=== PATIENT | female | born 1990 | race Caucasian/White ===

== ENCOUNTER 2022-06-06 14:22 | Inpatient (IN) | payer MEDICAID, SELFPAY ==
[2022-06-06] VITALS (35 sets, daily range): BP systolic 107–142; BP diastolic 53–90; PULSE 65–95; RESP 11–20; TEMP 36.9–37.3; O2SAT 92–96
--- NOTE | 2022-06-06 14:00 | RT.EKG_ITS ---
APPROVED REPORT Exam: Resting ECG Reason for Exam: CHEST PAIN Patient Location: E HR:82 bpm ECG Measurements Heart Rate 82 AXIS MS 164 P 61 QRSd 91 QRS 9 QT 397 T 56 QTc 465 Conclusion Sinus rhythm...normal P axis, V-rate 60- 99
--- NOTE | 2022-06-06 15:07 | W.ED.GENAD ---
Discharge Plan Disposition Patient Disposition: STILL A PATIENT Discharge Details Chief Complaint: GenMedical Primary Care Provider: Unknown,Unknown ED Provider: Ky Perez Home Meds and New Rx's Prescriptions: No Action mirtazapine [Remeron] 15 mg Tablet 15 mg PO HS buprenorphine-naloxone [Suboxone] 8-2 mg Film sublingual hydroxyzine pamoate [Vistaril] 25 mg Capsule 25 mg PO DAILY Medical Decision Making 1515 --31-year-old female with history of liver cirrhosis, alcoholism, here with rigors today, cough over the past 1 week. Consider pneumonia versus COVID. Patient is saturating well and is in no respiratory distress. I suspect her left upper quadrant tenderness is a result of alcoholic gastritis. I will initiate treatment with Pepcid. I did consider spontaneous bacterial peritonitis and exam is not consistent with this. Will send screening labs. I will obtain lactate and blood cultures. I will plan to obtain outside hospital records from [facility] regarding prior hospitalization. HPI General Mode of arrival: EMS. Date/Time Provider Initiated Documentation: 06/06/22 14:41. Limitations to Documentation: no limitations. Information obtained by: patient. HPI Narrative: 31-year-old female with history of alcoholism and cirrhosis of the liver, here with chief complaint of shaking chills. Patient notes full body shaking intermittently today. She notes symptoms of intermittent for the past 3 hours. She has associated intermittent dizziness. Symptoms are moderate to severe with no modifiers. She states symptoms do not feel similar to alcohol withdrawal which she has had in the past. Patient notes she has consumed 3 shots of vodka earlier today and a beer this afternoon and there was no improvement in her symptoms. Patient does note associated cough over the past 1 week. Cough has been productive of dark green sputum. Of note, patient states that she was told she had severe cirrhosis about 6 months ago. She did not seek rehabilitation for her alcoholism and was sober for about 5 months. She unfortunately resumed drinking again 2 weeks ago. Patient has not established care with a ultrasonic solderer. She has no primary care physician. Related Data Home Medications Medication Instructions Recorded Confirmed buprenorphine 8 mg-naloxone 2 mg film sublingual 06/06/22 sublingual film (Suboxone) hydroxyzine pamoate 25 mg capsule 25 mg PO DAILY 06/06/22 06/06/22 (Vistaril) mirtazapine 15 mg tablet (Remeron) 15 mg PO HS 06/06/22 06/06/22 Allergies Allergy/AdvReac Type Severity Reaction Status Date / Time clindamycin AdvReac Intermediate Nausea Unverified 06/06/22 14:27 General Stated Complaint: GenMedical SUHA: 3 Review of Systems All systems reviewed & are unremarkable except as noted in HPI and below Constitutional Constitutional: Reports body ache(s) and Denies fever(s) Gastrointestinal Gastrointestinal: Reports abdominal pain (chronic) PFSH Social History Smoking/Tobacco Use Status: Current every day Smoking risk assessment performed?: Yes Substance use type: does not use Details: on suboxone for opiate addiction Do you feel safe at home: Yes Do you feel safe in your relationship?: Yes Exam Const General: cooperative and no acute distress Orientation: alert and awake Other: Intermittent rigors HENMT Head: normocephalic and atraumatic Eyes Conjunctivae: conjunctivae normal Neck Neck: trachea midline and supple Resp Auscultation: clear to auscultation bilaterally, no rales, no rhonchi and no wheezes Cardio Rate: regular rate and not tachycardic Rhythm: regular rhythm GI Inspection: non-distended Palpation: soft, not firm, no guarding, no masses, not rigid and tender in the LUQ; with no rebound tenderness Auscultation: normal bowel sounds Skin General skin exam: no rashes or lesions noted Neuro General: patient alert, patient awake and tone normal Extrem General: no edema Psych Appearance: grossly normal Mental Status: mental status grossly normal Speech and Movement: speech and movement normal Course Vital Signs Vital signs: Vital Signs Temperature 36.9 C 06/06/22 14:21 Pulse 90 06/06/22 14:21 Respiratory Rate 18 06/06/22 14:21 Blood Pressure 141/84 H 06/06/22 14:21 Pulse Oximetry 96 06/06/22 14:21 Temperature 36.9 C 06/06/22 14:21 Temperature Source Temporal Artery Scan 06/06/22 14:21 Pulse 90 06/06/22 14:21 Respiratory Rate 18 06/06/22 14:21 Respiratory Effort Non-Labored 06/06/22 14:52 Blood Pressure 141/84 H 06/06/22 14:21 Blood Pressure Position Sitting 06/06/22 14:21 Pulse Oximetry 96 06/06/22 14:21 Oxygen Delivery Method Room Air 06/06/22 14:21 Oxygen Flow Rate 0 06/06/22 14:21 Pain Level 5 06/06/22 14:21 PAWSS Have you Been Recently Intoxicated or Drunk Within the Last 30 days?: Yes Have you Ever Experienced Previous Episodes of Alcohol Withdrawal?: Yes Have you ever Experienced Withdrawal Seizures?: Yes Have you ever Experienced Delirium Tremens(DT)s?: Yes Have you ever undergone Alcohol Rehabilitation Treatment (i.e, inpt ot outpatient treatment programs)?: Yes Have you ever Experienced Blackouts?: Yes Have you ever Combined Alcohol with other Downers within the last 90 days?: No Have you ever Combined Alcohol with any other Substance of Abuse during the last 90 days?: No Positive Blood Alcohol level on Presentation? [PCS.BAL]: No Evidence of Increased Autonomic Activity (i.e. HR>120, tremor, sweating, agitation, nausea)?: Yes Result: 7
[2022-06-06 15:37] LABS: Lactate 2.1 mmol/L (0.6-1.4)
[2022-06-06 15:38] LABS: Source Nasal/Nares
[2022-06-06 15:40] LABS: Abs Immature Grans 0.01 10^3/uL (0.0-0.06); Absolute Basophil Count 0.01 10^3/uL (0.0-0.2); Absolute Eosinophil Count 0.06 10^3/uL (0.0-0.7); Absolute Lymphocyte Count 1.31 10^3/uL (1.2-3.4); Absolute Monocyte Count 0.31 10^3/uL (0.1-0.8); Absolute Neutrophil Count 2.21 10^3/uL (1.2-6.7); Basophils % 0.3; Eosinophils % 1.5; HCT 30.3 % (36.0-46.0); HGB 10.6 g/dL (11.2-15.7); Immature Grans % 0.3; Lymphocytes % 33.5; MCH 32.7 pg (27.0-33.0); MCV 94 fL (80-95); MPV 10.1 fL (8.0-11.0); Monocytes % 7.9; Neutrophils % 56.5; RBC 3.24 10^6/uL (3.93-5.22); RDW 16.4 % (11.7-14.6); RDW-SD 55.8 fL; WBC 3.91 10^3/uL (4.4-10.8)
[2022-06-06 15:52] LABS: Diff Comment PLT Morph Reviewed; Platelet Count 32 10^3/uL (130-400); RBC Morphology Normal
[2022-06-06 15:53] LABS: INR 1.2 (0.9-1.1); PTT Activated 36.2 sec (21.0-27.5); Prothrombin Time 12.1 sec (9.3-11.0)
[2022-06-06 16:02] LABS: Bilirubin Small (Negative); Blood Negative (Negative); Clarity Clear (Clear); Glucose 100 mg/dL (Negative); Ketones Negative (Negative); Leukocyte Esterase Negative (Negative); Nitrite Negative (Negative); Urobilinogen >=8.0 EU/dL (Up TO 0.2); pH 7.5 (5-8)
[2022-06-06 16:02] LABS: ALT 44 U/L (14-59); AST 113 U/L (15-37); Albumin 3.9 g/dL (3.4-5.0); Alkaline Phosphatase 89 U/L (46-116); Anion Gap 13.6 mmol/L (3-11); BUN 11 mg/dL (7-18); Bilirubin, Total 2.9 mg/dL (0.2-1.0); CO2 27.4 mmol/L (21.0-32.0); CREATININE 0.5 mg/dL (0.55-1.02); Calcium 8.6 mg/dL (8.5-10.1); Chloride 105 mmol/L (98-107); Glucose 104 mg/dL (74-106); Magnesium 1.2 mg/dL (1.8-2.4); Potassium 3.6 mmol/L (3.5-5.1); Sodium 146 mmol/L (136-145); Total Protein 8.1 g/dL (6.4-8.2); Troponin I < 50 ng/L (<or=60)
--- NOTE | 2022-06-06 16:07 | DI.RAD_ITS ---
Exam(s) XR PORTABLE CHEST AP EXAM: XR PORTABLE CHEST AP CLINICAL HISTORY: productive cough TECHNIQUE: 2D digital imaging was performed. COMPARISON: No exams were available for comparison FINDINGS: LUNGS: Clear. No pleural abnormality seen. HEART: Normal. AORTA: Normal. BONES: Unremarkable for age. Soft tissues: Unremarkable. IMPRESSION: No acute findings. DATA REPOSITORY: RADIATION DOSE DELIVERED:
[2022-06-06 16:10] LABS: Bacteria Few HPF (Negative); C & S Indicated? No/Sq. Contamination; Casts Negative LPF (Negative); Crystals Negative HPF (Negative); Epithelial Cells Many HPF (Negative); Mucus Moderate (Negative); RBC 0-2 HPF (0-2)
[2022-06-06 16:11] LABS: COVID-19 PCR Negative (Negative)
[2022-06-06] MEDS: Famotidine 20 MG/2 ML VIAL IVP (17:02)
[2022-06-06] MEDS: Ondansetron 4 MG/2 ML VIAL IVP (18:19)
[2022-06-06] MEDS: AZITHROMYCIN 500 MG in Normal Saline 250 ML 250 MG IVPB (18:23)
[2022-06-06] MEDS: LORazepam 20 MG/10 ML VIAL IVP (19:05)
--- NOTE | 2022-06-06 21:22 | HPE_ITS ---
Date of service: 06/06/22 Time of Service: : Assessment and Plan Assessment and plan (1) Pneumonia: Start date: 06/06/22 Status: Acute Assessment and plan: This is a 31-year-old lady with chronic alcoholism and chronic polysubstance use on Suboxone recently restarting alcohol use with a history of alcohol cirrhosis with sequela chronically from alcohol use. She presents with cough and change in sputum production with question of pneumonia on x-ray of the chest as read by ED physician but formal reading revealing no infiltrates. She restarted on Ro cephin and Zithromax which will be continued with follow-up chest x-ray. She also had IV hydration which should be monitored closely with a history of ascites. She is a full code. She may be able to go home on oral antibiotics quickly if her symptoms improved. Bronchospasm will be treated with b ronchodilators. She is a smoker. (2) Alcoholic cirrhosis: Status: Chronic Assessment and plan: CIWA protocol and monitor labs while on IV hydrating and treating acute pneumonia. Long-term patient should go through alcohol rehabilitation program again and approach sobriety if possible with severe early liver disease with her alcohol abuse. (3) Alcoholic: Status: Chronic Assessment and plan: CIWA protocol with monitoring for alcohol withdrawal. Long-term patient should once again go through outpatient program for sobriety. She does have advanced liver disease from her alcohol abuse and there was some talk of liver transplant but she would have to be sober for this to occur. History of Present Illness History of Present Illness Chief Complaint: Cough with visual changes/rigors Narrative: This is a 31-year-old female patient with a long history of alcoholism and polysubstance use on Suboxone daily who also had diagnosis of severe cirrhosis of the liver secondary to alcoholism with ascites 6 months ago stating that she would need liver transplant. She was sober for about 5 months after this presentation of her state of illness but began drinking 2 weeks prior to admission. Patient is a smoker and has been coughing for about 1 week producing dark green sputum. She was having mild visual changes, rigors and thought she may be withdrawing from alcohol therefore drink 3 shots of vodka earlier the day of admission. She was not improving in her partner brought her to the ED for evaluation. She was negative for COVID. She did have findings of abdominal discomfort was thought to be secondary to alcohol use with gastritis and po ssible liver discomfort. She did receive famotidine in the ED. There is a question of spontaneous bacterial peritonitis but her story was not consistent with this and on x-ray the ED physician thought that she may have an infiltrate in her right lower lobe though the chest x-ray was read formally as no acute infiltrates. She was initiated on IV antibiotic therapy with Zithromax and Rocephin and placed on the [facility] protocol for alcohol withdrawal while admitted. She has sequela of chronic alcohol use with pancytopenia and was mildly dehydrated with the ED physician stated that her sodium was slightly elevated. She was given IV fluids in the ED and would be continued on IV fluid resuscitat ion during hospital stay. She has been eating and drinking fairly well with no complaints of nausea or vomiting. She has had no hemoptysis with her coughing and sputum production. She states that she does wheeze when ill but is not on inhalers chronically. Will send screening labs.? I will obtain lactate and blood cultures.? I will plan to obtain outside hospital records from [facility] regarding prior hospitalization. Review of Systems Narrative: 13 point review of systems otherwise unrevealing or stable. Patient denies any peripheral edema or weight change. She has had no measured fever. PFSH All Active Problems (Updated 06/07/22 @ 06:41 by Parker Beasley) Alcoholic (Chronic) Alcoholic cirrhosis (Chronic) Pneumonia (Acute) Social History Smoking/Tobacco Use Status: Current every day Smoking risk assessment performed?: Yes Drug use: Occasionally Substance use type: does not use Details: on suboxone for opiate addiction Do you feel safe at home: Yes Do you feel safe in your relationship?: Yes Meds Allergies and Home Medications Allergies Allergy/AdvReac Type Severity Reaction Status Date / Time clindamycin AdvReac Intermediate Nausea Unverified 06/06/22 14:27 Home Medications Medication Instructions Recorded Confirmed Type hydroxyzine pamoate 25 mg capsule 25 mg PO DAILY 06/06/22 06/06/22 History (Vistaril) mirtazapine 15 mg tablet (Remeron) 15 mg PO HS 06/06/22 06/06/22 History buprenorphine 2 mg-naloxone 0.5 mg 2 tab sublingual DAILY 06/07/22 06/07/22 History sublingual tablet buprenorphine 8 mg-naloxone 2 mg 2 tab sublingual DAILY 06/07/22 06/07/22 History sublingual tablet Exam Narrative Exam Narrative: General: Patient appears older than stated age, thin and disheveled with flattened affect but good eye contact. She is in no acute distress. Alert and oriented x3. HEENT: Normocephalic, coarsened facial features, eyes with pupils equal and reactive to light symmetrically, extraocular movement intact and sclera slightly icteric. Oropharynx with moist mucous and poor dentition with missing and carious teeth. Neck: Supple without JVD. Back: Stooped posture without CVA tenderness. Lungs: Increased expiratory phase with diffuse expiratory wheeze none focalizing, occasional rhonchi with cough but no focalizing inspiratory rales. Decreased aeration bases. Bronchovesicular breath sounds diffusely. Breast: Exam deferred. Heart: Regular rate and rhythm with 3/6 systolic murmur left terminal border. No gallops or rubs. Abdomen: Normal contour, soft with tenderness over the upper abdomen with no palpable hepatosplenomegaly, minimal guarding and no rebound. Bowel sounds positive all quadrants. Genitalia/rectal: Exam deferred. Extremity: Without clubbing, cyanosis or pitting edema. Peripheral pulses intact. Skin: Normal color though pale, warm and dry. Neuro: Cranial nerves II through XII gross intact, no focalized motor deficits. Psych: Flattened affect with depressed mood, no abnormal thought processes. Remote and recent memory grossly intact. Speech is monotonous tone and slow. Results Imaging Imaging Studies: EXAM:? XR PORTABLE CHEST AP CLINICAL HISTORY:? productive cough TECHNIQUE:? 2D digital imaging was performed. COMPARISON:? No exams were available for comparison FINDINGS: LUNGS: Clear. No pleural abnormality seen. HEART: Normal. AORTA: Normal. BONES: Unremarkable for age.? Soft tissues: Unremarkable. IMPRESSION: No acute? findings. Labs Result diagrams: 06/07/22 06:05 06/07/22 06:05 Labs: Laboratory Results - last 24 hr 06/06/22 06/06/22 06/06/22 15:15 15:15 15:15 WBC RBC Hgb Hct MCV MCH MCHC RDW Plt Count MPV Immature Gran % Neutrophils % Lymphocytes % Monocytes % Eosinophils % Basophils % Nucleated RBC % Absolute Neutrophils Absolute Lymphocytes Absolute Monocytes Absolute Eosinophils Absolute Basophils RBC Morphology PT 12.1 H INR 1.2 H APTT 36.2 H VBG Lactate 2.1 H Sodium 146 H Potassium 3.6 Chloride 105 Carbon Dioxide 27.4 Anion Gap 13.6 H BUN 11 Creatinine 0.5 L Estimated GFR/1.73 m2 >= 60.00 Glucose 104 Calcium 8.6 Magnesium 1.2 L Total Bilirubin 2.9 H AST 113 H ALT 44 Alkaline Phosphatase 89 Troponin I < 50 Total Protein 8.1 Albumin 3.9 Urine Color Urine Clarity Urine pH Ur Specific [place] Urine Protein Urine Ketones Urine Blood Urine Nitrite Urine Bilirubin Urine Urobilinogen Ur Leukocyte Esterase Urine RBC Urine WBC Ur Epithelial Cells Urine Crystals Urine Bacteria Urine Casts Urine Mucus Ur Culture Indicated? Urine Glucose COVID-19 Source SARS-CoV-2 (PCR) 06/06/22 06/06/22 06/06/22 15:15 15:30 15:49 WBC 3.91 L RBC 3.24 L Hgb 10.6 L Hct 30.3 L MCV 94 MCH 32.7 MCHC 35.0 RDW 16.4 H Plt Count 32 L MPV 10.1 Immature Gran % 0.3 Neutrophils % 56.5 Lymphocytes % 33.5 Monocytes % 7.9 Eosinophils % 1.5 Basophils % 0.3 Nucleated RBC % 0.0 Absolute Neutrophils 2.21 Absolute Lymphocytes 1.31 Absolute Monocytes 0.31 Absolute Eosinophils 0.06 Absolute Basophils 0.01 RBC Morphology Normal PT INR APTT VBG Lactate Sodium Potassium Chloride Carbon Dioxide Anion Gap BUN Creatinine Estimated GFR/1.73 m2 Glucose Calcium Magnesium Total Bilirubin AST ALT Alkaline Phosphatase Troponin I Total Protein Albumin Urine Color Yellow Urine Clarity Clear Urine pH 7.5 Ur Specific [place] 1.020 Urine Protein 30 H Urine Ketones Negative Urine Blood Negative Urine Nitrite Negative Urine Bilirubin Small H Urine Urobilinogen >=8.0 Ur Leukocyte Esterase Negative Urine RBC 0-2 Urine WBC 3-5 Ur Epithelial Cells Many Urine Crystals Negative Urine Bacteria Few Urine Casts Negative Urine Mucus Moderate Ur Culture Indicated? No/Sq. Contamination Urine Glucose 100 COVID-19 Source Nasal/Nares SARS-CoV-2 (PCR) Negative Last Vital Signs Temp 36.9 C 06/06/22 19:54 Pulse 67 06/06/22 19:54 Resp 16 06/06/22 19:54 BP 128/76 06/06/22 19:54 Pulse Ox 94 08/12/22 19:54 PAWSS Have you Been Recently Intoxicated or Drunk Within the Last 30 days?: Yes Have you Ever Experienced Previous Episodes of Alcohol Withdrawal?: Yes Have you ever Experienced Withdrawal Seizures?: Yes Have you ever Experienced Delirium Tremens(DT)s?: Yes Have you ever undergone Alcohol Rehabilitation Treatment (i.e, inpt ot outpatient treatment programs)?: Yes Have you ever Experienced Blackouts?: Yes Have you ever Combined Alcohol with other Downers within the last 90 days?: No Have you ever Combined Alcohol with any other Substance of Abuse during the last 90 days?: No Positive Blood Alcohol level on Presentation? [PCS.BAL]: No Evidence of Increased Autonomic Activity (i.e. HR>120, tremor, sweating, agitation, nausea)?: Yes Result: 7
[2022-06-06 22:13] LABS: Bilirubin Negative (Negative); Blood Small (Negative); Clarity Clear (Clear); Glucose Negative (Negative); Ketones Negative (Negative); Leukocyte Esterase Negative (Negative); Nitrite Negative (Negative); Specific Gravity 1.025 (1.005-1.025)
[2022-06-06] MEDS: Mirtazapine 15 MG TAB PO (22:15)
[2022-06-06 22:16] LABS: Epithelial Cells Moderate HPF (Negative); WBC Negative HPF (0-5)
[2022-06-06] MEDS: MAGNESIUM SULFATE 4 GM/100 ML BAG IVPB (22:16)
[2022-06-06 22:17] LABS: Bacteria Few HPF (Negative); Casts Negative LPF (Negative); Crystals Negative HPF (Negative); Mucus Negative (Negative)
[2022-06-06 22:21] LABS: C & S Indicated? No
[2022-06-06 22:23] LABS: *AMPHETAMINES SCREEN URINE Negative (Negative); *BARBITURATES SCREEN URINE Negative (Negative); *BENZODIAZEPINES SCREEN URINE Negative (Negative); Cannabinoids THC Negative (Negative); Cocaine Screen,Urine Negative (Negative); METHADONE URINE SCREEN Negative (Negative); OPIATES URINE SCREEN Negative (Negative)
[2022-06-06] MEDS: LORazepam 1 MG TAB PO/SL (22:23)
[2022-06-06 22:26] LABS: Tricyclic Antidepressants Negative (Negative)
[2022-06-06] MEDS: Lactated Ringers 1,000 ML 125 ML IV (23:49)
[2022-06-07] VITALS (10 sets, daily range): BP systolic 94–122; BP diastolic 58–77; PULSE 74–93; RESP 12–18; TEMP 35.9–37.3; O2SAT 92–97
[2022-06-07] MEDS: Lactated Ringers 1,000 ML 125 ML IV ×2 (06:26→14:48)
[2022-06-07 06:30] LABS: Abs Immature Grans 0.01 10^3/uL (0.0-0.06); Absolute Basophil Count 0.01 10^3/uL (0.0-0.2); Absolute Eosinophil Count 0.08 10^3/uL (0.0-0.7); Absolute Lymphocyte Count 1.29 10^3/uL (1.2-3.4); Absolute Monocyte Count 0.23 10^3/uL (0.1-0.8); Absolute Neutrophil Count 1.17 10^3/uL (1.2-6.7); Basophils % 0.4; Eosinophils % 2.9; HGB 10.2 g/dL (11.2-15.7); Immature Grans % 0.4; Lymphocytes % 46.2; MCH 32.4 pg (27.0-33.0); MCV 95 fL (80-95); MPV 10.9 fL (8.0-11.0); Monocytes % 8.2; Neutrophils % 41.9; RBC 3.15 10^6/uL (3.93-5.22); RDW 16.2 % (11.7-14.6); RDW-SD 56.5 fL; WBC 2.79 10^3/uL (4.4-10.8)
[2022-06-07 06:38] LABS: Platelet Count 26 10^3/uL (130-400)
[2022-06-07 06:39] LABS: Diff Comment PLT Morph Reviewed; INR 1.3 (0.9-1.1); Prothrombin Time 12.9 sec (9.3-11.0)
[2022-06-07 06:43] LABS: ALT 37 U/L (14-59); AST 99 U/L (15-37); Albumin 3.4 g/dL (3.4-5.0); Alkaline Phosphatase 80 U/L (46-116); Anion Gap 7.1 mmol/L (3-11); BUN 8 mg/dL (7-18); Bilirubin, Direct 1.7 mg/dL (0.0-0.2); CO2 29.9 mmol/L (21.0-32.0); CREATININE 0.5 mg/dL (0.55-1.02); Calcium 8.3 mg/dL (8.5-10.1); Chloride 106 mmol/L (98-107); Glucose 88 mg/dL (74-106); Magnesium 1.8 mg/dL (1.8-2.4); Potassium 3.4 mmol/L (3.5-5.1); Sodium 143 mmol/L (136-145); Total Protein 7.1 g/dL (6.4-8.2)
--- NOTE | 2022-06-07 08:00 | DI.RAD_ITS ---
Exam(s) XR CHEST 2V PA LATERAL EXAM: XR CHEST 2V PA LATERAL CLINICAL HISTORY: Pneumonia TECHNIQUE: 2D digital imaging was performed. COMPARISON: CR XR PORTABLE CHEST AP from 06/06/2022 FINDINGS: MEDIASTINUM: Normal. HEART: Normal. PULMONARY VASCULATURE: Normal. LUNGS: Upper lobe scarring, otherwise clear. PLEURAL SPACE: No pleural effusion or pneumothorax. BONE:Unremarkable for age. IMPRESSION: No acute abnormality. DATA REPOSITORY: RADIATION DOSE DELIVERED:
[2022-06-07] MEDS: FAMOTIDINE 20 MG in Normal Saline 100 ML 400 MG IVPB ×2 (08:33→20:20)
[2022-06-07] MEDS: Buprenorphine 2 MG SUBLINGUAL TABLET 4 MG SL (08:33)
[2022-06-07] MEDS: hydrOXYzine PAMOATE 25 MG CAP PO (08:33)
[2022-06-07] MEDS: Thiamine 100 MG TAB PO (08:33)
[2022-06-07] MEDS: Folic Acid 1 MG TAB PO (08:33)
[2022-06-07] MEDS: Multivitamin TAB 1 TAB PO (08:33)
--- NOTE | 2022-06-07 08:36 | DI.VRAD_ITS ---
PROCEDURE INFORMATION: Exam: XR Chest Exam date and time: 06/07/2022 8:14 AM Age: 31 years old Clinical indication: Other: Pna TECHNIQUE: Imaging protocol: Radiologic exam of the chest. Views: 2 views. COMPARISON: CR XR PORTABLE CHEST AP 06/06/2022 3:51 PM FINDINGS: Lungs: Unremarkable. No consolidation. Pleural spaces: Unremarkable. No pleural effusion. No pneumothorax. Heart/Mediastinum: Unremarkable. No cardiomegaly. Bones/joints: Unremarkable. IMPRESSION: No acute findings. Dictated and Authenticated by: Gabi Henao MD. Ordering:VIKAS Canales MD
--- NOTE | 2022-06-07 08:59 | PDOC.CMIN ---
- If Service Date Differs Date of service: 06/07/22 Time of Service: 08:59 Care Management Initial Assess REASON FOR HOSPITALIZATION:: Pneumonia PAST MEDICAL HISTORY/PAST SURGICAL HISTORY:: Alcoholic (Chronic). Alcoholic cirrhosis (Chronic). Pneumonia (Acute) PREVIOUS FUNCTIONAL STATUS/SOCIAL/FAMILY SUPPORTS:: Resides in [place] with Robbie haile. CURRENT FUNCTIONAL STATUS:: Randi is currently being treated for withdrawal. Her significant other has been consistently at her bedside during visiting hours. ADVANCE DIRECTIVES:: None on file. Has patient been provided with info about the portal/API?: No Did the patient sign up for the portal?: No CODE STATUS:: Full Code INSURANCE COVERAGE / FINANCIAL ISSUES:: Medicaid CURRENT HOME/COMMUNITY SERVICES/EQUIPMENT:: None, currently. PRIMARY CARE PHYSICIAN:: Unable to obtain. POTENTIAL DISCHARGE NEEDS:: [facility] referral, Computer Support Technician outreach. PATIENT/FAMILY EDUCATION NEEDS:: Review of discharge instructions, discuss Ask Me Three. ANTICIPATED BARRIERS TO DISCHARGE:: None identified. TRANSPORTATION:: Via private vehicle with significant other. PLAN:: Per providers, Randi is currently being treated for withdrawal and is unable to meaningfully engage at this time. Anticipate full assessment and service review ([facility], Computer Support Technician, [facility]TE options) once Randi has detoxed and is able to engage.
[2022-06-07] MEDS: cefTRIAXone 1 GM/50 ML BAG IVPB (11:02)
--- NOTE | 2022-06-07 13:21 | PGE_ITS ---
Date of Service Date of service: 06/07/22 Time of Service: 13:21 Assessment and Plan Assessment and plan (1) Pneumonia: Start date: 06/06/22 Status: Acute Assessment and plan: No PNA seen on imaging per radiology. Stopped antibiotics. Cont. treating any bronchospasm with bronchodilators. She is a smoker. (2) Alcoholic cirrhosis: Status: Chronic Assessment and plan: [facility] protocol and monitor labs Long-term patient should go through alcohol rehabilitation program again and approach sobriety if possible with severe early liver disease with her alcohol abuse. She states, however, that she recently was a [facility] and does not want to return to an inpatient program. Security Flex Utility Officer to speak with her. She understands that she will need 6 months of sobriety in order to be considered for a liver transplant. (3) Alcoholic: Status: Chronic Assessment and plan: See above. Subjective Subjective Patient reports: tolerating liquids well and afebrile; denies vomiting Interval history since last seen: She endorses less abd bloating. Exam Narrative Exam Narrative: General: Patient appears older than stated age, thin and disheveled with flattened affect but good eye contact. She is in no acute distress. Alert and oriented x3. Neck: FROM, no JVD Lungs:No increased WOB. Clear anteriorly. Heart: Regular rate and rhythm with 3/6 systolic murmur left terminal border. Abdomen: Normal contour, soft with tenderness over the upper abdomen Extremity: No edema, calf tenderness. Skin: Jaundiced. No rashes. Psych: Flattened affect with depressed mood, no abnormal thought processes. Remote and recent memory grossly intact. Speech is monotonous tone and slow. Objective Last Vital Signs Temp 37.3 C 06/07/22 11:48 Pulse 93 H 06/07/22 11:48 Resp 16 06/07/22 11:48 BP 107/64 06/07/22 11:48 Pulse Ox 94 06/07/22 11:48 Laboratory Results - last 24 hr 06/06/22 06/06/22 06/06/22 15:15 15:15 15:15 WBC RBC Hgb Hct MCV MCH MCHC RDW Plt Count MPV Immature Gran % Neutrophils % Lymphocytes % Monocytes % Eosinophils % Basophils % Nucleated RBC % Absolute Neutrophils Absolute Lymphocytes Absolute Monocytes Absolute Eosinophils Absolute Basophils RBC Morphology PT 12.1 H INR 1.2 H APTT 36.2 H VBG Lactate 2.1 H Sodium 146 H Potassium 3.6 Chloride 105 Carbon Dioxide 27.4 Anion Gap 13.6 H BUN 11 Creatinine 0.5 L Estimated GFR/1.73 m2 >= 60.00 Glucose 104 Calcium 8.6 Magnesium 1.2 L Total Bilirubin 2.9 H Conjugated Bilirubin AST 113 H ALT 44 Alkaline Phosphatase 89 Troponin I < 50 Total Protein 8.1 Albumin 3.9 Urine Color Urine Clarity Urine pH Ur Specific Shirley Urine Protein Urine Ketones Urine Blood Urine Nitrite Urine Bilirubin Urine Urobilinogen Ur Leukocyte Esterase Urine RBC Urine WBC Ur Epithelial Cells Urine Crystals Urine Bacteria Urine Casts Urine Mucus Ur Culture Indicated? Urine Glucose Urine Opiates Screen Urine Methadone Screen Ur Barbiturates Screen Ur Tricyclics Screen Ur Amphetamines Screen U Benzodiazepines Scrn Urine Cocaine Screen Ur THC Screen COVID-19 Source SARS-CoV-2 (PCR) 06/06/22 06/06/22 06/06/22 15:15 15:30 15:49 WBC 3.91 L RBC 3.24 L Hgb 10.6 L Hct 30.3 L MCV 94 MCH 32.7 MCHC 35.0 RDW 16.4 H Plt Count 32 L MPV 10.1 Immature Gran % 0.3 Neutrophils % 56.5 Lymphocytes % 33.5 Monocytes % 7.9 Eosinophils % 1.5 Basophils % 0.3 Nucleated RBC % 0.0 Absolute Neutrophils 2.21 Absolute Lymphocytes 1.31 Absolute Monocytes 0.31 Absolute Eosinophils 0.06 Absolute Basophils 0.01 RBC Morphology Normal PT INR APTT VBG Lactate Sodium Potassium Chloride Carbon Dioxide Anion Gap BUN Creatinine Estimated GFR/1.73 m2 Glucose Calcium Magnesium Total Bilirubin Conjugated Bilirubin AST ALT Alkaline Phosphatase Troponin I Total Protein Albumin Urine Color Yellow Urine Clarity Clear Urine pH 7.5 Ur Specific Shirley 1.020 Urine Protein 30 H Urine Ketones Negative Urine Blood Negative Urine Nitrite Negative Urine Bilirubin Small H Urine Urobilinogen >=8.0 Ur Leukocyte Esterase Negative Urine RBC 0-2 Urine WBC 3-5 Ur Epithelial Cells Many Urine Crystals Negative Urine Bacteria Few Urine Casts Negative Urine Mucus Moderate Ur Culture Indicated? No/Sq. Contamination Urine Glucose 100 Urine Opiates Screen Urine Methadone Screen Ur Barbiturates Screen Ur Tricyclics Screen Ur Amphetamines Screen U Benzodiazepines Scrn Urine Cocaine Screen Ur THC Screen COVID-19 Source Nasal/Nares SARS-CoV-2 (PCR) Negative 06/06/22 06/06/2206/07/22 21:49 21:49 06:05 WBC 2.79 L RBC 3.15 L Hgb 10.2 L Hct 30.0 L MCV 95 MCH 32.4 MCHC 34.0 RDW 16.2 H Plt Count 26 L* MPV 10.9 Immature Gran % 0.4 Neutrophils % 41.9 Lymphocytes % 46.2 Monocytes % 8.2 Eosinophils % 2.9 Basophils % 0.4 Nucleated RBC % 0.0 Absolute Neutrophils 1.17 L Absolute Lymphocytes 1.29 Absolute Monocytes 0.23 Absolute Eosinophils 0.08 Absolute Basophils 0.01 RBC Morphology PT INR APTT VBG Lactate Sodium Potassium Chloride Carbon Dioxide Anion Gap BUN Creatinine Estimated GFR/1.73 m2 Glucose Calcium Magnesium Total Bilirubin Conjugated Bilirubin AST ALT Alkaline Phosphatase Troponin I Total Protein Albumin Urine Color Yellow Urine Clarity Clear Urine pH 7.0 Ur Specific Shirley 1.025 Urine Protein Negative Urine Ketones Negative Urine Blood Small H Urine Nitrite Negative Urine Bilirubin Negative Urine Urobilinogen 4.0 H Ur Leukocyte Esterase Negative Urine RBC 5-10 H Urine WBC Negative Ur Epithelial Cells Moderate Urine Crystals Negative Urine Bacteria Few Urine Casts Negative Urine Mucus Negative Ur Culture Indicated? No Urine Glucose Negative Urine Opiates Screen Negative Urine Methadone Screen Negative Ur Barbiturates Screen Negative Ur Tricyclics Screen Negative Ur Amphetamines Screen Negative U Benzodiazepines Scrn Negative Urine Cocaine Screen Negative Ur THC Screen Negative COVID-19 Source SARS-CoV-2 (PCR) 06/07/22 06/07/22 06:05 06:05 WBC RBC Hgb Hct MCV MCH MCHC RDW Plt Count MPV Immature Gran % Neutrophils % Lymphocytes % Monocytes % Eosinophils % Basophils % Nucleated RBC % Absolute Neutrophils Absolute Lymphocytes Absolute Monocytes Absolute Eosinophils Absolute Basophils RBC Morphology PT 12.9 H INR 1.3 H APTT VBG Lactate Sodium 143 Potassium 3.4 L Chloride 106 Carbon Dioxide 29.9 Anion Gap 7.1 BUN 8 Creatinine 0.5 L Estimated GFR/1.73 m2 >= 60.00 Glucose 88 Calcium 8.3 L Magnesium 1.8 Total Bilirubin 5.0 H Conjugated Bilirubin 1.7 H AST 99 H ALT 37 Alkaline Phosphatase 80 Troponin I Total Protein 7.1 Albumin 3.4 Urine Color Urine Clarity Urine pH Ur Specific Shirley Urine Protein Urine Ketones Urine Blood Urine Nitrite Urine Bilirubin Urine Urobilinogen Ur Leukocyte Esterase Urine RBC Urine WBC Ur Epithelial Cells Urine Crystals Urine Bacteria Urine Casts Urine Mucus Ur Culture Indicated? Urine Glucose Urine Opiates Screen Urine Methadone Screen Ur Barbiturates Screen Ur Tricyclics Screen Ur Amphetamines Screen U Benzodiazepines Scrn Urine Cocaine Screen Ur THC Screen COVID-19 Source SARS-CoV-2 (PCR) PAWSS Have you Been Recently Intoxicated or Drunk Within the Last 30 days?: Yes Have you Ever Experienced Previous Episodes of Alcohol Withdrawal?: Yes Have you ever Experienced Withdrawal Seizures?: Yes Have you ever Experienced Delirium Tremens(DT)s?: Yes Have you ever undergone Alcohol Rehabilitation Treatment (i.e, inpt ot outpatient treatment programs)?: Yes Have you ever Experienced Blackouts?: Yes Have you ever Combined Alcohol with other Downers within the last 90 days?: No Have you ever Combined Alcohol with any other Substance of Abuse during the last 90 days?: No Positive Blood Alcohol level on Presentation? [PCS.BAL]: No Evidence of Increased Autonomic Activity (i.e. HR>120, tremor, sweating, agitation, nausea)?: Yes Result: 7
[2022-06-07] MEDS: LORazepam 20 MG/10 ML VIAL IVP (13:52)
[2022-06-07] MEDS: Normal Saline Flush 10 ML SYR IVP (13:53)
[2022-06-07] MEDS: Acetaminophen 325 MG TAB 650 MG PO (15:32)
[2022-06-07] MEDS: LORazepam 1 MG TAB PO/SL ×2 (18:03→22:54)
[2022-06-07] MEDS: Nicotine 21 MG/24 HR PATCH TD (18:24)
[2022-06-07] MEDS: LORazepam 1 MG TAB PO (20:18)
[2022-06-07] MEDS: Mirtazapine 15 MG TAB PO (22:32)
[2022-06-08] VITALS (8 sets, daily range): BP systolic 110–130; BP diastolic 71–84; PULSE 89–101; RESP 12–20; TEMP 35.9–37.5; O2SAT 92–97
[2022-06-08] MEDS: Lactated Ringers 1,000 ML 125 ML IV ×3 (00:08→16:34)
[2022-06-08 05:54] LABS: Absolute Basophil Count 0.01 10^3/uL (0.0-0.2); Absolute Lymphocyte Count 1.41 10^3/uL (1.2-3.4); Absolute Monocyte Count 0.19 10^3/uL (0.1-0.8); Absolute Neutrophil Count 0.99 10^3/uL (1.2-6.7); Basophils % 0.4; Eosinophils % 3.7; HCT 27.3 % (36.0-46.0); HGB 9.3 g/dL (11.2-15.7); Lymphocytes % 52.2; MCH 32.7 pg (27.0-33.0); MCHC 34.1 % (32.0-36.0); MCV 96 fL (80-95); MPV 9.9 fL (8.0-11.0); Neutrophils % 36.7; RBC 2.84 10^6/uL (3.93-5.22); RDW-SD 57.3 fL
[2022-06-08 06:10] LABS: ALT 36 U/L (14-59); AST 91 U/L (15-37); Albumin 3.1 g/dL (3.4-5.0); Alkaline Phosphatase 72 U/L (46-116); Anion Gap 6.6 mmol/L (3-11); BUN 6 mg/dL (7-18); Bilirubin, Total 3.4 mg/dL (0.2-1.0); CO2 29.4 mmol/L (21.0-32.0); CREATININE 0.4 mg/dL (0.55-1.02); Calcium 8.8 mg/dL (8.5-10.1); Chloride 106 mmol/L (98-107); Glucose 94 mg/dL (74-106); Magnesium 1.2 mg/dL (1.8-2.4); Potassium 3.7 mmol/L (3.5-5.1); Sodium 142 mmol/L (136-145); Total Protein 6.8 g/dL (6.4-8.2)
[2022-06-08 06:13] LABS: Diff Comment Agrees w/ Instrument; Platelet Count 24 10^3/uL (130-400)
[2022-06-08] MEDS: FAMOTIDINE 20 MG in Normal Saline 100 ML 400 MG IVPB ×2 (08:10→20:18)
[2022-06-08] MEDS: hydrOXYzine PAMOATE 25 MG CAP PO (08:11)
[2022-06-08] MEDS: Multivitamin TAB 1 TAB PO (08:11)
[2022-06-08] MEDS: Thiamine 100 MG TAB PO (08:11)
[2022-06-08] MEDS: Nicotine 21 MG/24 HR PATCH TD (08:11)
[2022-06-08] MEDS: Folic Acid 1 MG TAB PO (08:11)
[2022-06-08] MEDS: Buprenorphine 2 MG SUBLINGUAL TABLET 4 MG SL (08:11)
[2022-06-08] MEDS: LORazepam 1 MG TAB PO ×2 (08:11→13:58)
--- NOTE | 2022-06-08 14:31 | W.PM.PROGNOT ---
Date of Service Date of service: 06/08/22 Time of Service: 14:34 Assessment and Plan Assessment and plan (1) Pneumonia: Start date: 06/06/22 Status: Acute Assessment and plan: No PNA seen on imaging per radiology. Stopped antibiotics. Cont. treating any bronchospasm with bronchodilators. She is a smoker. (2) Alcoholic cirrhosis: Status: Chronic Assessment and plan: CIWA protocol and monitor labs CIWA max score overnight was 7. Long-term patient should go through alcohol rehabilitation program again and approach sobriety if possible with severe early liver disease with her alcohol abuse. She states, however, that she recently was a [facility] and does not want to return to an inpatient program. Reformatory Attendant to speak with her. She understands that she will need 6 months of sobriety in order to be considered for a liver transplant. (3) Alcoholic: Status: Chronic Assessment and plan: See above. Subjective Subjective Patient reports: no new complaints, nausea and afebrile; denies vomiting or shortness of breath Exam Narrative Exam Narrative: General: Asleep, arousable. NAD. Neck: FROM, no JVD Lungs:No increased WOB. Clear anteriorly. Heart: Regular rate and rhythm with 3/6 systolic murmur left terminal border. Abdomen: Soft, NT, mild distended. Extremity: No edema, calf tenderness. Skin: Jaundiced. No rashes. Psych: Flattened affect with depressed mood, no abnormal thought processes. Objective Last Vital Signs Temp 37.2 C 06/08/22 11:47 Pulse 101 H 06/08/22 11:47 Resp 18 06/08/22 11:47 BP 124/74 06/08/22 11:47 Pulse Ox 95 06/08/22 11:47 Laboratory Results - last 24 hr 06/08/22 06/08/22 05:31 05:31 WBC 2.70 L RBC 2.84 L Hgb 9.3 L Hct 27.3 L MCV 96 H MCH 32.7 MCHC 34.1 RDW 16.0 H Plt Count 24 L* MPV 9.9 Immature Gran % 0.0 Neutrophils % 36.7 Lymphocytes % 52.2 Monocytes % 7.0 Eosinophils % 3.7 Basophils % 0.4 Nucleated RBC % 0.0 Absolute Neutrophils 0.99 L Absolute Lymphocytes 1.41 Absolute Monocytes 0.19 Absolute Eosinophils 0.10 Absolute Basophils 0.01 Sodium 142 Potassium 3.7 Chloride 106 Carbon Dioxide 29.4 Anion Gap 6.6 BUN 6 L Creatinine 0.4 L Estimated GFR/1.73 m2 >= 60.00 Glucose 94 Calcium 8.8 Magnesium 1.2 L Total Bilirubin 3.4 H AST 91 H ALT 36 Alkaline Phosphatase 72 Total Protein 6.8 Albumin 3.1 L PAWSS Have you Been Recently Intoxicated or Drunk Within the Last 30 days?: Yes Have you Ever Experienced Previous Episodes of Alcohol Withdrawal?: Yes Have you ever Experienced Withdrawal Seizures?: Yes Have you ever Experienced Delirium Tremens(DT)s?: Yes Have you ever undergone Alcohol Rehabilitation Treatment (i.e, inpt ot outpatient treatment programs)?: Yes Have you ever Experienced Blackouts?: Yes Have you ever Combined Alcohol with other Downers within the last 90 days?: No Have you ever Combined Alcohol with any other Substance of Abuse during the last 90 days?: No Positive Blood Alcohol level on Presentation? [PCS.BAL]: No Evidence of Increased Autonomic Activity (i.e. HR>120, tremor, sweating, agitation, nausea)?: Yes Result: 7
[2022-06-08] MEDS: Magnesium Oxide 400 MG TAB 800 MG PO ×2 (14:39→20:17)
[2022-06-08 15:06] LABS: Lab Add On Test DONE
[2022-06-08 15:55] LABS: Procalcitonin < 0.1 ng/mL
[2022-06-08] MEDS: LORazepam 1 MG TAB PO/SL ×3 (18:03→22:23)
[2022-06-08] MEDS: Mirtazapine 15 MG TAB PO (20:17)
[2022-06-09] MEDS: Lactated Ringers 1,000 ML 125 ML IV ×2 (01:47→10:16)
[2022-06-09 03:10] VITALS: BP 108/68; PULSE 90; RESP 18; TEMP 36.7; O2SAT 97
[2022-06-09] MEDS: Acetaminophen 325 MG TAB 650 MG PO ×2 (03:45→08:26)
[2022-06-09] MEDS: LORazepam 1 MG TAB PO/SL ×4 (03:45→20:46)
[2022-06-09 06:46] LABS: Absolute Basophil Count 0.01 10^3/uL (0.0-0.2); Absolute Eosinophil Count 0.11 10^3/uL (0.0-0.7); Absolute Lymphocyte Count 1.51 10^3/uL (1.2-3.4); Absolute Monocyte Count 0.24 10^3/uL (0.1-0.8); Absolute Neutrophil Count 1.41 10^3/uL (1.2-6.7); Basophils % 0.3; Eosinophils % 3.4; HCT 26.7 % (36.0-46.0); HGB 8.9 g/dL (11.2-15.7); MCH 31.9 pg (27.0-33.0); MCHC 33.3 % (32.0-36.0); MCV 96 fL (80-95); MPV 10.4 fL (8.0-11.0); Monocytes % 7.3; RBC 2.79 10^6/uL (3.93-5.22); RDW 16.3 % (11.7-14.6); RDW-SD 57.1 fL; WBC 3.28 10^3/uL (4.4-10.8)
[2022-06-09 07:00] LABS: ALT 45 U/L (14-59); AST 97 U/L (15-37); Alkaline Phosphatase 74 U/L (46-116); Anion Gap 7.9 mmol/L (3-11); BUN 7 mg/dL (7-18); Bilirubin, Total 2.7 mg/dL (0.2-1.0); CO2 29.1 mmol/L (21.0-32.0); CREATININE 0.5 mg/dL (0.55-1.02); Calcium 8.7 mg/dL (8.5-10.1); Chloride 105 mmol/L (98-107); Glucose 105 mg/dL (74-106); Magnesium 1.3 mg/dL (1.8-2.4); PHOSPHORUS 5.2 mg/dL (2.6-4.7); Potassium 3.4 mmol/L (3.5-5.1); Sodium 142 mmol/L (136-145); Total Protein 6.8 g/dL (6.4-8.2)
[2022-06-09 07:23] LABS: Platelet Count 30 10^3/uL (130-400)
[2022-06-09 07:30] VITALS: BP 105/68; PULSE 98; RESP 16; TEMP 36.6; O2SAT 96
[2022-06-09] MEDS: Nicotine 21 MG/24 HR PATCH TD (08:25)
[2022-06-09] MEDS: Buprenorphine 2 MG SUBLINGUAL TABLET 4 MG SL (08:26)
[2022-06-09] MEDS: Magnesium Oxide 400 MG TAB 800 MG PO ×2 (08:26→20:38)
[2022-06-09] MEDS: Multivitamin TAB 1 TAB PO (08:26)
[2022-06-09] MEDS: hydrOXYzine PAMOATE 25 MG CAP PO (08:26)
[2022-06-09] MEDS: Thiamine 100 MG TAB PO (08:26)
[2022-06-09] MEDS: Folic Acid 1 MG TAB PO (08:26)
[2022-06-09] MEDS: FAMOTIDINE 20 MG in Normal Saline 100 ML 400 MG IVPB (08:27)
--- NOTE | 2022-06-09 11:09 | PGE_ITS ---
Date of Service Date of service: 06/09/22 Time of Service: 11:09 Assessment and Plan Assessment and plan (1) Pneumonia: Start date: 06/06/22 Status: Ruled-out Assessment and plan: No PNA seen on imaging per radiology. no leukocytosis and no elevation of procalcitonin. antibiotics were stopped. Cont. treating any bronchospasm with bronchodilators. She is a smoker. will encourage use of IS and acapella (2) Alcoholic cirrhosis: Status: Chronic Assessment and plan: CIWA protocol and monitor labs CIWA max score overnight was 7. Long-term patient should go through alcohol rehabilitation program again and approach sobriety if possible with severe early liver disease with her alcohol abuse. She states, however, that she recently was a [facility] and does not want to return to an inpatient program. Denial Management Representative to speak with her. She understands that she will need 6 months of sobriety in order to be considered for a liver transplant. continue treatment w/ thiamine, MVS, nutritional support; correct her hypo kalemia and hypomagnesemia (3) Alcoholic: Status: Chronic Assessment and plan: See above. (4) Hypomagnesemia: Status: Acute Assessment and plan: correct w/ iv and oral replacements; monitor levels (5) Hypokalemia: Status: Acute Assessment and plan: correct w/ iv and oral replacements; monitor levels Subjective Subjective Interval history since last seen: patient is lethargic but arousable this morning. She has chronic RUQ discomfort from her swollen liver. Her boyfriend informs me that she just got out of [facility] rehab recently but had been abstinent of alcohol for some time but went on a king couple weeks ago. She has been drinking a fifth of Vodka a day, previously would drink a gallon of Vodka per day. I explained to him that she needs to be abstinent for at least 6 months before [facility] will consider her for a liver transplant. Exam Narrative Exam Narrative: Patient was sleep this morning, possibly from medications (has been getting Ativan for alcohol withdrawal) Lungs: some coarse rhonchi that clear w/ cough and deep breathing Abdomen: liver is very enlarged, edge is felt to be several cm below RCM Extremities: no asterixis or tremors and no edema Objective Last Vital Signs Temp 36.6 C 06/09/22 07:30 Pulse 98 H 06/09/22 07:30 Resp 16 06/09/22 07:30 BP 105/68 06/09/22 07:30 Pulse Ox 96 06/09/22 07:30 Laboratory Results - last 24 hr 06/08/22 06/08/22 06/09/22 05:30 Unknown 06:25 WBC RBC Hgb Hct MCV MCH MCHC RDW Plt Count MPV Immature Gran % Neutrophils % Lymphocytes % Monocytes % Eosinophils % Basophils % Nucleated RBC % Absolute Neutrophils Absolute Lymphocytes Absolute Monocytes Absolute Eosinophils Absolute Basophils Sodium 142 Potassium 3.4 L Chloride 105 Carbon Dioxide 29.1 Anion Gap 7.9 BUN 7 Creatinine 0.5 L Estimated GFR/1.73 m2 >= 60.00 Glucose 105 Calcium 8.7 Phosphorus 5.2 H Magnesium 1.3 L Total Bilirubin 2.7 H AST 97 H ALT 45 Alkaline Phosphatase 74 Total Protein 6.8 Albumin 3.0 L Procalcitonin < 0.1 Add-On Test Request DONE 06/09/22 06:25 WBC 3.28 L RBC 2.79 L Hgb 8.9 L Hct 26.7 L MCV 96 H MCH 31.9 MCHC 33.3 RDW 16.3 H Plt Count 30 L MPV 10.4 Immature Gran % 0.0 Neutrophils % 43.0 Lymphocytes % 46.0 Monocytes % 7.3 Eosinophils % 3.4 Basophils % 0.3 Nucleated RBC % 0.0 Absolute Neutrophils 1.41 Absolute Lymphocytes 1.51 Absolute Monocytes 0.24 Absolute Eosinophils 0.11 Absolute Basophils 0.01 Sodium Potassium Chloride Carbon Dioxide Anion Gap BUN Creatinine Estimated GFR/1.73 m2 Glucose Calcium Phosphorus Magnesium Total Bilirubin AST ALT Alkaline Phosphatase Total Protein Albumin Procalcitonin Add-On Test Request PAWSS Have you Been Recently Intoxicated or Drunk Within the Last 30 days?: Yes Have you Ever Experienced Previous Episodes of Alcohol Withdrawal?: Yes Have you ever Experienced Withdrawal Seizures?: Yes Have you ever Experienced Delirium Tremens(DT)s?: Yes Have you ever undergone Alcohol Rehabilitation Treatment (i.e, inpt ot outpatient treatment programs)?: Yes Have you ever Experienced Blackouts?: Yes Have you ever Combined Alcohol with other Downers within the last 90 days?: No Have you ever Combined Alcohol with any other Substance of Abuse during the last 90 days?: No Positive Blood Alcohol level on Presentation? [PCS.BAL]: No Evidence of Increased Autonomic Activity (i.e. HR>120, tremor, sweating, agitation, nausea)?: Yes Result: 7
[2022-06-09] MEDS: MAGNESIUM SULFATE 4 GM/100 ML BAG IVPB (11:51)
[2022-06-09] MEDS: POTASSIUM CHLORIDE 20 MEQ/100 ML BAG 50 MEQ IVPB ×2 (11:51→13:58)
[2022-06-09] MEDS: Normal Saline Flush 10 ML SYR IVP (11:52)
[2022-06-09] MEDS: Potassium Chloride 10 MEQ CAPCR 20 MEQ PO ×2 (13:22→20:38)
--- NOTE | 2022-06-09 14:15 | PHA.REVIEW ---
Pharmacy Admission Review - Admission Clinical Review (Last Reviewed 06/06/22 @ 21:22 by Parker Beasley) Pneumonia (Acute) clindamycin Adverse Reaction (Intermediate, Unverified 06/06/22 14:27) Nausea Resuscitation Status Full Code Height 5 ft 4 in Weight 61.3 kg - Renal Dosing Renal Dosing: BUN 7 mg/dL (7-18) 06/09/22 06:25 Creatinine 0.5 mg/dL (0.55-1.02) L 06/09/22 06:25 Medications needing adjustments: Reviewed (Crcl ~160.65 mL/min current meds okay) - Anticoagulation Anticoagulation: Hgb 8.9 g/dL (11.2-15.7) L 06/09/22 06:25 Hct 26.7 % (36.0-46.0) L 06/09/22 06:25 Plt Count 30 10^3/uL (130-400) L 06/09/22 06:25 INR 1.3 (0.9-1.1) H 06/07/22 06:05 Creatinine 0.5 mg/dL (0.55-1.02) L 06/09/22 06:25 DVT Prophylaxis: Reviewed (SCDs currently ordered.) Therapeutic Anticoagulation: N/A - Opiate Usage Evaluate Pain Scale/Pains Meds: Reviewed Scheduled Bowel Reg ordered if on Opiates?: No (has prn meds ordered) - Relevant Labs Sodium 142 mmol/L (136-145) 06/09/22 06:25 Potassium 3.4 mmol/L (3.5-5.1) L 06/09/22 06:25 Chloride 105 mmol/L (98-107) 06/09/22 06:25 Phosphorus 5.2 mg/dL (2.6-4.7) H 06/09/22 06:25 Magnesium 1.3 mg/dL (1.8-2.4) L 06/09/22 06:25 Electrolytes, C-Reactive P, ESR: Reviewed (IV/PO mag and K+ ordered) - DM Control DM Control: Glucose 105 mg/dL (74-106) 06/09/22 06:25 Insulin Dosing: N/A - Heart Failure/OK Heart Failure/OK: Troponin I < 50 ng/L (<or=60) 06/06/22 15:15 EF%, KATHARINA's, B-Blockers, Diuretics: Reviewed - BP Control BP Control: Blood Pressure 105/68 Blood Pressure 108/68 If elevated: Reviewed (BP was elevated on admission but has been low to normal since then.) - Qtc Review If Elevated: N/A (QTc 465 on admission) - IV to PO Switch IV Medications: Intervened (Pt is taking PO meds, will ask provider about changing famotadine from IV to PO.) - Home Meds Home Med List reviewed: Reviewed (Suboxone dose verified by pharmacist on over the weekend.) - Current meds Current Medication Order Review: Intervened (Discontinued duplicate med orders.) - Comments Comments/Follow Ups: Watch VS, H/H, plts, mag, K+, labs and for med changes.
[2022-06-09 14:51] VITALS: BP 106/71; PULSE 92; RESP 16; TEMP 37.3; O2SAT 95
--- NOTE | 2022-06-09 15:29 | PDOC.CMPRO ---
- If Service Date Differs Date of service: 06/09/22 Time of Service: 15:29 Care Management Progress Note S/O: Randi is working through detox, per MD. She was sleeping when CM attempted to meet with her but MD reported feeling she may be alert enough to engage with resource recovery specialist this afternoon. CM paged resource recovery specialist, provided case review and outreach information for Randi and her fiance, and will continue to follow. Anticipate [facility] referral, as well. CM continues to follow. A: 31 year old female admitted to [facility] 06/06/22 for Pneumonia, Alcoholism P: Randi is currently being treated for withdrawal and is unable to meaningfully engage at this time. Anticipate full assessment and service review ([facility], Flower Shop Manager, NETTE options) once Randi has detoxed and is able to engage.
[2022-06-09 19:18] VITALS: BP 103/65; PULSE 95; RESP 15; TEMP 37.4; O2SAT 95
[2022-06-09] MEDS: Famotidine 20 MG TAB PO (20:38)
[2022-06-09] MEDS: Lactulose 20 GM/30 ML CUP PO (20:39)
[2022-06-09] MEDS: Mirtazapine 15 MG TAB PO (21:32)
[2022-06-09 22:44] VITALS: BP 103/64; PULSE 98; RESP 17; TEMP 37; O2SAT 96
[2022-06-10] VITALS (11 sets, daily range): BP systolic 103–118; BP diastolic 61–79; PULSE 94–101; RESP 14–18; TEMP 36.2–37.5; O2SAT 93–96
[2022-06-10] MEDS: LORazepam 1 MG TAB PO/SL ×5 (03:10→21:18)
[2022-06-10] MEDS: Docusate Sodium 100 MG CAP PO (03:11)
[2022-06-10 05:42] LABS: Abs Immature Grans 0.01 10^3/uL (0.0-0.06); Absolute Basophil Count 0.01 10^3/uL (0.0-0.2); Absolute Eosinophil Count 0.15 10^3/uL (0.0-0.7); Absolute Lymphocyte Count 1.62 10^3/uL (1.2-3.4); Absolute Monocyte Count 0.33 10^3/uL (0.1-0.8); Basophils % 0.2; Eosinophils % 3.7; HCT 26.9 % (36.0-46.0); HGB 9.3 g/dL (11.2-15.7); Immature Grans % 0.2; Lymphocytes % 40.4; MCH 33.2 pg (27.0-33.0); MCHC 34.6 % (32.0-36.0); MCV 96 fL (80-95); MPV 9.3 fL (8.0-11.0); Monocytes % 8.2; Neutrophils % 47.3; RDW 16.3 % (11.7-14.6); RDW-SD 58.2 fL; WBC 4.01 10^3/uL (4.4-10.8)
[2022-06-10 05:50] LABS: Diff Comment PLT Morph Reviewed; Platelet Count 34 10^3/uL (130-400)
[2022-06-10 05:54] LABS: Ammonia 50 umol/L (11-32)
[2022-06-10 05:57] LABS: ALT 51 U/L (14-59); AST 116 U/L (15-37); Alkaline Phosphatase 79 U/L (46-116); Anion Gap 8.5 mmol/L (3-11); BUN 6 mg/dL (7-18); Bilirubin, Total 3.1 mg/dL (0.2-1.0); CO2 26.5 mmol/L (21.0-32.0); CREATININE 0.5 mg/dL (0.55-1.02); Calcium 8.7 mg/dL (8.5-10.1); Chloride 105 mmol/L (98-107); Glucose 123 mg/dL (74-106); Magnesium 1.4 mg/dL (1.8-2.4); Potassium 4.1 mmol/L (3.5-5.1); Sodium 140 mmol/L (136-145); Total Protein 6.8 g/dL (6.4-8.2)
[2022-06-10] MEDS: Normal Saline Flush 10 ML SYR IVP ×2 (08:39→09:49)
[2022-06-10] MEDS: MAGNESIUM SULFATE 4 GM/100 ML BAG IVPB (09:40)
[2022-06-10] MEDS: Normal Saline 500 ML 30 ML IV (09:40)
[2022-06-10] MEDS: Buprenorphine 2 MG SUBLINGUAL TABLET 4 MG SL (09:40)
[2022-06-10] MEDS: Nicotine 21 MG/24 HR PATCH TD (09:43)
[2022-06-10 10:04] LABS: Folate 11.4 ng/mL (8.6-20.0); Vitamin B12 620 pg/mL (193-986)
[2022-06-10] MEDS: Lactulose 20 GM/30 ML CUP PO ×2 (11:42→19:55)
[2022-06-10] MEDS: Potassium Chloride 10 MEQ CAPCR 20 MEQ PO ×3 (11:43→19:54)
[2022-06-10] MEDS: Thiamine 100 MG TAB PO (11:43)
[2022-06-10] MEDS: Famotidine 20 MG TAB PO ×2 (11:43→19:55)
[2022-06-10] MEDS: Multivitamin TAB 1 TAB PO (11:43)
[2022-06-10] MEDS: Folic Acid 1 MG TAB PO (11:43)
[2022-06-10] MEDS: hydrOXYzine PAMOATE 25 MG CAP PO (11:44)
[2022-06-10] MEDS: Magnesium Oxide 400 MG TAB 800 MG PO ×2 (11:44→19:54)
--- NOTE | 2022-06-10 12:15 | DI.US_ITS ---
Exam(s) US ABDOMEN EXAM: US ABDOMEN CLINICAL HISTORY: RUQ abdominal pain TECHNIQUE: Ultrasound of complete upper abdomen performed using standard protocol. COMPARISON: US OB US 2-3 TRIMESTER TRANSABD from 03/14/2009 FINDINGS: There is no ascites evident. LIVER: Liver appears slightly enlarged, measuring 22 cm. It also is echogenic implying an element of steatosis. There are no discrete focal hepatic. GALLBLADDER/BILIARY: There are no shadowing gallstones but there is thickening of the gallbladder wal l and some mild pericholecystic fluid. The common hepatic duct isnot dilated, measuring 5mm at the level of rodriguez hepatis. PANCREAS: There is no evidence of pancreatic mass nor dilatation of the pancreatic duct. SPLEEN: The spleen is not enlarged and there are no intrasplenic lesions evident. KIDNEYS:Kidneys exhibit normal size with no evidence of solid mass, calculus, nor hydronephrosis. No cortical cysts evident. ABDOMINAL AORTA: There is no evidence of abdominal aortic aneurysm. IVC: Normal diameter where visualized. IMPRESSION: 1. Although there are no gallstones evident the gallbladder lumen, the gallbladder wall appears thic kened-edematous and there is suggestion mild pericholecystic fluid. These findings suggest acalculus cholecystitis. Recommend nuclear hepatobiliary imaging to confirm this diagnosis. 2. Hepatic steatosis and hepatomegaly. DATA REPOSITORY:
[2022-06-10] MEDS: Polyethylene Glycol 3350 17 GM PACKET PO (13:07)
[2022-06-10] MEDS: HYDROmorphone 2 MG TAB PO ×2 (13:14→19:55)
--- NOTE | 2022-06-10 15:42 | W.PM.PROGNOT ---
Date of Service Date of service: 06/10/22 Time of Service: 15:42 Assessment and Plan Assessment and plan (1) Pneumonia: Start date: 06/06/22 Status: Ruled-out Assessment and plan: No PNA seen on imaging per radiology. no leukocytosis and no elevation of procalcitonin. antibiotics were stopped. Cont. treating any bronchospasm with bronchodilators. Encouraged to use IS and acapella (2) Alcoholic cirrhosis: Status: Chronic Assessment and plan: CIWA protocol and monitor labs CIWA max score overnight was 8 Long-term patient should go through alcohol rehabilitation program again and approach sobriety if possible with severe early liver disease with her alcohol abuse. She states, however, that she recently was a [facility] and does not want to return to an inpatient program. Engineering Technician to speak with her. She understands that she will need 6 months of sobriety in order to be considered for a liver transplant. continue treatment w/ thiamine, MVS, nutritional support; correct her hypokalemia and hypomagnesemia (3) Alcoholic: Status: Chronic Assessment and plan: See above. (4) Hypomagnesemia: Status: Acute Assessment and plan: correct w/ iv and oral replacements; monitor levels (5) Hypokalemia: Status: Acute Assessment and plan: correct w/ iv and oral replacements; monitor levels (6) DVT prophylaxis: Status: Acute Assessment and plan: SCD/TEDS PLT 1.3 - no chemical , (7) Discharge planning issues: Status: Acute Assessment and plan: Discussed with Dr Evangelista Subjective Subjective Interval history since last seen: I'm tired - sleeping through most of visit/exam - does deny any new complaints. Exam Narrative Exam Narrative: Patient was asleep this morning, she has been getting Ativan for alcohol withdrawal Lungs: continues to have some coarse rhonchi that clear w/ cough and deep breathing Abdomen: liver is very enlarged, edge is felt to be several cm below RCM Extremities: no asterixis or tremors and no edema Objective Last Vital Signs Temp 36.2 C L 06/10/22 15:18 Pulse 94 H 06/10/22 15:18 Resp 16 06/10/22 15:18 BP 104/61 06/10/22 15:18 Pulse Ox 96 06/10/22 15:18 Laboratory Results - last 24 hr 08/06/10/22 06/10/22 05:30 05:30 05:30 WBC 4.01 L RBC 2.80 L Hgb 9.3 L Hct 26.9 L MCV 96 H MCH 33.2 H MCHC 34.6 RDW 16.3 H Plt Count 34 L MPV 9.3 Immature Gran % 0.2 Neutrophils % 47.3 Lymphocytes % 40.4 Monocytes % 8.2 Eosinophils % 3.7 Basophils % 0.2 Nucleated RBC % 0.0 Absolute Neutrophils 1.90 Absolute Lymphocytes 1.62 Absolute Monocytes 0.33 Absolute Eosinophils 0.15 Absolute Basophils 0.01 Sodium 140 Potassium 4.1 Chloride 105 Carbon Dioxide 26.5 Anion Gap 8.5 BUN 6 L Creatinine 0.5 L Estimated GFR/1.73 m2 >= 60.00 Glucose 123 H Calcium 8.7 Magnesium 1.4 L Total Bilirubin 3.1 H AST 116 H ALT 51 Alkaline Phosphatase 79 Ammonia 50 H Total Protein 6.8 Albumin 3.0 L Vitamin B12 Folate 06/10/22 05:30 WBC RBC Hgb Hct MCV MCH MCHC RDW Plt Count MPV Immature Gran % Neutrophils % Lymphocytes % Monocytes % Eosinophils % Basophils % Nucleated RBC % Absolute Neutrophils Absolute Lymphocytes Absolute Monocytes Absolute Eosinophils Absolute Basophils Sodium Potassium Chloride Carbon Dioxide Anion Gap BUN Creatinine Estimated GFR/1.73 m2 Glucose Calcium Magnesium Total Bilirubin AST ALT Alkaline Phosphatase Ammonia Total Protein Albumin Vitamin B12 620 Folate 11.4 Reviewed Pertinent PMH: Yes Objective Narrative Objective Narrative: Ill appearing PAWSS Have you Been Recently Intoxicated or Drunk Within the Last 30 days?: Yes Have you Ever Experienced Previous Episodes of Alcohol Withdrawal?: Yes Have you ever Experienced Withdrawal Seizures?: Yes Have you ever Experienced Delirium Tremens(DT)s?: Yes Have you ever undergone Alcohol Rehabilitation Treatment (i.e, inpt ot outpatient treatment programs)?: Yes Have you ever Experienced Blackouts?: Yes Have you ever Combined Alcohol with other Downers within the last 90 days?: No Have you ever Combined Alcohol with any other Substance of Abuse during the last 90 days?: No Positive Blood Alcohol level on Presentation? [PCS.BAL]: No Evidence of Increased Autonomic Activity (i.e. HR>120, tremor, sweating, agitation, nausea)?: Yes Result: 7
[2022-06-10] MEDS: Methylnaltrexone 12 MG/0.6 ML VIAL SC (15:56)
[2022-06-10] MEDS: Mirtazapine 15 MG TAB PO (21:18)
[2022-06-11 00:07] VITALS: BP 113/71; PULSE 97; RESP 16; TEMP 37.4; O2SAT 97
[2022-06-11 00:15] VITALS: RESP 16
[2022-06-11] MEDS: LORazepam 1 MG TAB PO/SL (00:22)
[2022-06-11 02:54] VITALS: BP 108/68; PULSE 105; RESP 16; TEMP 37.2; O2SAT 95
[2022-06-11 07:17] VITALS: BP 102/63; PULSE 93; RESP 16; TEMP 37.2; O2SAT 93
[2022-06-11 07:54] LABS: ALT 51 U/L (14-59); AST 114 U/L (15-37); Albumin 3.1 g/dL (3.4-5.0); Alkaline Phosphatase 78 U/L (46-116); Anion Gap 7.3 mmol/L (3-11); BUN 9 mg/dL (7-18); Bilirubin, Total 3.3 mg/dL (0.2-1.0); CO2 26.7 mmol/L (21.0-32.0); CREATININE 0.5 mg/dL (0.55-1.02); Calcium 8.9 mg/dL (8.5-10.1); Chloride 105 mmol/L (98-107); Glucose 133 mg/dL (74-106); Magnesium 1.5 mg/dL (1.8-2.4); Potassium 4.2 mmol/L (3.5-5.1); Sodium 139 mmol/L (136-145)
[2022-06-11] MEDS: Normal Saline Flush 10 ML SYR IVP (08:05)
[2022-06-11] MEDS: Buprenorphine 2 MG SUBLINGUAL TABLET 4 MG SL (08:05)
[2022-06-11] MEDS: Lactulose 20 GM/30 ML CUP PO (08:05)
[2022-06-11] MEDS: Magnesium Oxide 400 MG TAB 800 MG PO (08:06)
[2022-06-11] MEDS: Folic Acid 1 MG TAB PO (08:06)
[2022-06-11] MEDS: hydrOXYzine PAMOATE 25 MG CAP PO (08:06)
[2022-06-11] MEDS: Thiamine 100 MG TAB PO (08:06)
[2022-06-11] MEDS: Famotidine 20 MG TAB PO (08:06)
[2022-06-11] MEDS: Multivitamin TAB 1 TAB PO (08:06)
[2022-06-11] MEDS: Nicotine 21 MG/24 HR PATCH TD (08:06)
[2022-06-11 08:36] LABS: Lab Add On Test DONE
[2022-06-11 08:48] LABS: Lipase 143 U/L (73-393)
--- NOTE | 2022-06-11 09:39 | PDOC.CMPRO ---
- If Service Date Differs Date of service: 06/11/22 Time of Service: 09:39 Care Management Progress Note S/O: Randi is being closely monitored and treated for withdrawal. Pt is on CIOK protocol, Randi was unable to engage in conversation with CM or the [facility], yesterday. CM will contact the Primary Care Pediatrician when patient is able to engage in conversation. Anticipate, [facility] referral when Randi is able to engage in conversation. CM continues to follow. A: 31 year old female admitted to [facility] 06/06/22 for Pneumonia, Alcoholism P: Randi is currently being treated for withdrawal and is unable to meaningfully engage at this time. Anticipate full assessment and service review ([facility]I, Primary Care Pediatrician, NETTE options) once Randi has detoxed and is able to engage.
[2022-06-11 09:41] LABS: Homocysteine 8.6 umol/L (5.0-13.9)
--- NOTE | 2022-06-11 11:00 | PGE_ITS ---
Date of Service Date of service: 06/11/22 Time of Service: 11:38 Assessment and Plan Assessment and plan (1) Alcoholic cirrhosis: Status: Chronic Assessment and plan: patient needs to remain abstinent of alcohol. She and her teddy have been counseled on this and are aware that if she continues to drink alcohol she risks worsening liver failure that may result in end stage liver disease. I am recommending [place] [facility] [place]. (2) Alcoholic: Status: Chronic Assessment and plan: patient is beyond the point of acute alcohol withdrawal delirium tremens. Her lethargy I think is combination of narcotic analgesics given for her RUQ abdomi nal pain, her suboxone and her ativan protocol for alcohol withdrawal. At this point she should not need any more ativan. I will also dc her hydrocodone but will ask surgery to evaluate her GB wall thickening and pericholecystic fluid to determine whether or not this is acute cholecystitis. She has never had a fever and her LFT have been improving since she has been abstinent these past 5 days. (3) Abnormal gall bladder diagnostic imaging: Status: Acute Assessment and plan: will ask surgery to evaluate before she is discharged home. (4) Discharge planning issues: Status: Acute Assessment and plan: Probable discharge this afternoon after surgeon has evaluated her gall bladder. otherwise patient is threatening to leave AMA Subjective Subjective Interval history since last seen: Patient is more alert and oriented although at times she will become drowsy. She is wanting to leave the hospital. Her stated reason is that she needs to watch her nephew for her sister who is in a nursing program and works however, in reality she wants to go outside to smoke. She already has nicotine patch and nicotrol inhaler. I met w/ her and her teddy and reviewed her abdominal US which shows fatty liver changes and thickening of her GB w/ pericholecystic fluid but no gall stones. She is tolerating her diet w/out nausea or vomiting. She is now 5 days out from her last intake of alcohol, so I think that we can dc her ativan protocol at this point. Her lethargy may be medicated related, however there is some concern for hepatic encephalopathy as her ammonia level was mildly elevated. i had put her on lactulose twice a day but inspite of this she has been constipated. I have increased her lactulose to qid and she is on miralax. For her ammonia I have added Rifaximin. Exam Narrative Exam Narrative: Randi still has an icteric appearance to her eyes and some jaundice to her skin She is awake and overall she seems appropriate in her questions and answers however, she will drift off to sleep like state in mid conversation Abdomen: some mild RUQ tenderness, liver is quite enlarged, measuring several cm below RCM; no rebound or Prather sign Objective Last Vital Signs Temp 37.2 C 06/11/22 07:17 Pulse 93 H 06/11/22 07:17 Resp 16 06/11/22 07:17 BP 102/63 06/11/22 07:17 Pulse Ox 93 06/11/22 07:17 Laboratory Results - last 24 hr 06/11/22 06/11/22 06/11/22 06:30 06:30 06:30 Sodium 139 Potassium 4.2 Chloride 105 Carbon Dioxide 26.7 Anion Gap 7.3 BUN 9 Creatinine 0.5 L Estimated GFR/1.73 m2 >= 60.00 Glucose 133 H Calcium 8.9 Magnesium 1.5 L Total Bilirubin 3.3 H AST 114 H ALT 51 Alkaline Phosphatase 78 Total Protein 7.0 Albumin 3.1 L Lipase 143 Add-On Test Request DONE PAWSS Have you Been Recently Intoxicated or Drunk Within the Last 30 days?: Yes Have you Ever Experienced Previous Episodes of Alcohol Withdrawal?: Yes Have you ever Experienced Withdrawal Seizures?: Yes Have you ever Experienced Delirium Tremens(DT)s?: Yes Have you ever undergone Alcohol Rehabilitation Treatment (i.e, inpt ot outpatient treatment programs)?: Yes Have you ever Experienced Blackouts?: Yes Have you ever Combined Alcohol with other Downers within the last 90 days?: No Have you ever Combined Alcohol with any other Substance of Abuse during the last 90 days?: No Positive Blood Alcohol level on Presentation? [PCS.BAL]: No Evidence of Increased Autonomic Activity (i.e. HR>120, tremor, sweating, agitation, nausea)?: Yes Result: 7
--- NOTE | 2022-06-11 11:09 | NUR.NOTE ---
Patient threatening to leave AMA if she was not discharged soon, stating she needs to babysit her nephew so her sister can go to her classes for nursing school. PAMELA and RN educated the patient on the importance of staying in the hospital and focusing on her health and well-being. Jadance also encouraging her to stay. Dr. Evangelista had lengthy conversation about the importance of staying another night, and laid out the plan of care for her today. He states he will come back and talk to her more in depth after his morning meeting. At this time, patient verbalizes that she will stay and wait for Dr. Evangelista to return to continue the conversation and will not leave AMA. Nursing Note:
[2022-06-11 11:12] LABS: HBs Antibody, Qual Positive (See Note); HBs Antibody, Quant 239.9 mIU/mL (See Note); Hepatitis B Core Antibody Negative (Negative); Hepatitis B surface Ag Negative (Negative); Hepatitis C Ab w Rflx HCV PCR Negative (Negative)
[2022-06-11 11:37] VITALS: BP 127/84; PULSE 104; RESP 18; TEMP 37.2; O2SAT 98
--- NOTE | 2022-06-11 13:09 | DSE_ITS ---
Date of service: 06/11/22 Time of Service: 13:10 DS: Diagnosis Discharge Diagnosis (1) Alcoholic cirrhosis: Status: Chronic Asessment and Plan: Fatty liver changes seen on abdominal ultrasound. Cirrhosis is suspected. Patient needs follow-up with hepatology at [facility] but she left AGAINST MEDICAL ADVICE prior to any follow-up arrangements. (2) Alcoholic: Status: Chronic Asessment and Plan: Patient was treated for acute alcoholic hepatitis.Serial labs were monitored. Her admission CMP showed an elevated total bilirubin of 5.0 with a conjugated bilirubin of 1.7 and elevated transaminases with an AST of 99. Over time her transaminases improved and her bilirubin came down to 3.3. Lipase was normal at 143. Coagulation studies showed an elevated INR 1.3. CBC demonstrated pancytopenia with an admission white count 3900 which remained relatively stable throughout her hospital course. She was found to be anemic with normocytic normochromic changes with a hemoglobin 10.6 hematocrit 30%. She dropped to as low as 8.9 g and 26% but prior to discharge her hemoglobin was at 9.3 g. Platelet count remained low at 32,000 and remained stable throughout her hospital course. Imaging included chest x-ray on admission that showed no acute findings. There are been some question of pneumonia on admission but repeat PA lateral chest x-ray the next day on 06/07/2022 again showed no acute pulmonary abnormalities. Abdominal ultrasound showed no gallstones but shows some gallbladder wall thickening and edema with pericholecystic fluid and hepatic steatosis and hepatomegaly. Ammonia level was mildly elevated at 50 and patient was treated with lactulose and rifaximin. Surgical consultation was requested with Dr. Rojas but patient left the hospital AGAINST MEDICAL ADVICE prior to completion of the surgical consultation. For her acute alcohol withdrawal she was treated with thiamine folic acid multivitamin and placed on Ativan protocol. Initially her CIWA scores were 5-11 but the time of discharge her CIWA scores were down to 0-4. Patient was becoming agitated because she was not allowed to go out and smoke in spite of being given Nicotrol inhaler and nicotine patch. Patient opted to leave the hospital AGAINST MEDICAL ADVICE. (3) Abnormal gall bladder diagnostic imaging: Status: Acute Asessment and Plan: Ultrasound of her abdomen demonstrated gallbladder wall thickening and pericholecystic fluid without cholelithiasis without biliary ductal dilatation. Surgical consultation was requested with Dr. Rojas but not completed as the patient left AGAINST MEDICAL ADVICE. (4) Discharge planning issues: Status: Resolved Asessment and Plan: Patient left the hospital prior to allowing us to set her up with follow-up outpatient appointments with her PCP or referral to GI hepatology Discharge Plan Disposition Patient Disposition: AGAINST MEDICAL ADVICE Condition: Stable Discharge Details Reason For Visit: Pneumonia, Alcoholism Admit Date/Time: 06/06/22 18:36 Admit Provider: Parker Beasley Attending Provider: Parker Beasley Primary Care Provider: Unknown,Unknown Home Meds and New Rx's Prescriptions: Continued mirtazapine [Remeron] 15 mg Tablet 15 mg PO HS hydroxyzine pamoate [Vistaril] 25 mg Capsule 25 mg PO DAILY buprenorphine-naloxone 2-0.5 mg Tablet, Sublingual 2 tab SUBLINGUAL DAILY buprenorphine-naloxone 8-2 mg Tablet, Sublingual 2 tab SUBLINGUAL DAILY Discharge Instructions Instructions: Alcohol Withdrawal (DC), Alcohol Dependence (DC), Alcohol Use Disorder (DC) Additional Instructions: You have chosen to leave the hospital prior to completion of your evaluation which was to include surgical consultation on abnormalities of your gall bladder. You were treated for acute alcoholic hepatitis and acute alcohol withdrawal. You have been referred to an alcohol dependence counselor and you need to refrain from any alcohol use due to the severity of your liver disease. Activity:: Activity as Tolerated Equipment/Supplies:: No Equipment Needed Diet:: As Tolerated Discharge Orders Discharge Orders: Discharge Order (Routine); Ordered 06/11/22 Ordered By: Kailash Evangelista Discharge Data Discharge Date/Time-TO BE ENTERED AT DEPARTURE: 06/11/22 12:20 Discharge Comment: KHUSHI DS: Summary Summary Time spent discussing smoking cessation with patient: 3 to 10 minutes Time Spent with Patient providing and/or coordinating discharge services: Less than 30 minutes Specific discharge activities: documentation of hospital visit Status at Discharge Functional status at discharge: independent ambulation Overall status at discharge: patient is progressing back to baseline Mental Status: mental status grossly normal Speech and Movement: speech and movement normal Mood: anxious mood Affect: anxious affect Exam Narrative Exam Narrative: Randi still has an icteric appearance to her eyes and some jaundice to her skin She is awake and overall she seems appropriate in her questions and answers however, she will drift off to sleep like state in mid conversation Abdomen: some mild RUQ tenderness, liver is quite enlarged, measuring several cm below RCM; no rebound or Prather sign Psych Mental Status: mental status grossly normal Speech and Movement: speech and movement normal Mood: anxious mood Affect: anxious affect DS: Data Vitals/I&O Vitals and I&O: Vital Signs Temperature 37.2 C 06/11/22 11:37 Temperature Source Tympanic 06/11/22 11:37 Pulse 104 H 06/11/22 11:37 Pulse Rhythm Regular 06/11/22 08:10 Pulse 73 06/06/22 17:40 Respiratory Rate 18 06/11/22 11:37 Respiratory Effort 06/11/22 08:10 Respiratory Depth Normal 06/11/22 08:10 Respiratory Pattern Normal 06/11/22 08:10 Blood Pressure 127/84 06/11/22 11:37 Blood Pressure Mean 67 06/06/22 17:31 Blood Pressure Position Sitting 06/06/22 14:21 Pulse Oximetry 98 06/11/22 11:37 Oxygen Delivery Method Room Air 06/11/22 11:37 Oxygen Flow Rate 0 06/11/22 11:37 Pain Level 3 06/11/22 11:37 Comment 06/10/22 15:18 Intake & Output 06/10/22 06/11/22 06/11/22 23:59 11:59 23:59 Intake Total 220 / 360 500 / 500 Output Total 1100 / 1850 Balance -880 / -1490 500 / 500 Intake: IV 100 / 120 Oral 120 / 240 500 / 500 Output: Urine 1100 / 1850 Other: Urine Color Yellow Urine Appearance Clear Clear Urine Odor Strong Comment patient reports voiding recently, unable to asses Voiding Methods Bedside Commode Data Completed and Pending Labs on day of discharge: Labs from last 24 hours 06/11/22 06/11/22 06/11/22 06:30 06:30 06:30 Sodium 139 Potassium 4.2 Chloride 105 Carbon Dioxide 26.7 Anion Gap 7.3 BUN 9 Creatinine 0.5 L Estimated GFR/1.73 m2 >= 60.00 Glucose 133 H Calcium 8.9 Magnesium 1.5 L Total Bilirubin 3.3 H AST 114 H ALT 51 Alkaline Phosphatase 78 Total Protein 7.0 Albumin 3.1 L Lipase 143 Add-On Test Request DONE Preliminary micro results at discharge 06/06/22 18:00 Blood Culture - Preliminary Blood NO GROWTH 96 HOURS 06/06/22 15:15 Blood Culture - Preliminary Blood NO GROWTH 96 HOURS PFSH All Active Problems (Updated 06/11/22 @ 13:12 by Kailash Evangelista MD) Abnormal gall bladder diagnostic imaging (Acute) DVT prophylaxis (Acute) Hypokalemia (Acute) Hypomagnesemia (Acute) Alcoholic (Chronic) Alcoholic cirrhosis (Chronic) Social History Smoking/Tobacco Use Status: Current every day Smoking risk assessment performed?: Yes Drug use: Occasionally Substance use type: does not use Details: on suboxone for opiate addiction Do you feel safe at home: Yes Do you feel safe in your relationship?: Yes
[2022-06-13 08:36] LABS: Methylmalonic Acid 0.13 nmol/mL (<=0.40)
== END 2022-06-11 12:20 | disposition left against medical advice (07) | DRG 433 ==
LOC: ER 18:46 → MS 19:37
PROVIDERS: Family Medicine; Internal Medicine; Student in an Organized Health Care Education/Training Program; Admitting Provider Family Medicine; Emergency Provider Emergency Medicine; Visit Provider Family Medicine
DX: K70.10 Alcoholic hepatitis without ascites (principal); D61.818 Other pancytopenia; F11.20 Opioid dependence, uncomplicated; F10.239 Alcohol dependence with withdrawal, unspecified; J98.01 Acute bronchospasm; K70.30 Alcoholic cirrhosis of liver without ascites; F10.20 Alcohol dependence, uncomplicated; E87.6 Hypokalemia; E11.42 Type 2 diabetes mellitus with diabetic polyneuropathy; F17.210 Nicotine dependence, cigarettes, uncomplicated; E86.0 Dehydration; R93.2 Abnormal findings on diagnostic imaging of liver and biliary tract
CPT/HCPCS: 36415; 80048; 80053; 80076; 80186; 80307; 83090; 83690; 84145; 86704; 86706; 86803; 87040; 87340; 87635; 93005; 71045; 71046; 76700; 81003; 81015; 82140; 82607; 82746; 83605; 83735; 84100; 84484; 85025; 85610; 85730; 87086; 93010; 99223; 99232; 99238; J0456; J0696; J2405; J3475; J3480; J3490

== ENCOUNTER 2023-01-08 20:27 | Emergency (ER) | payer MEDICAID, SELFPAY ==
[2023-01-08 20:34] VITALS: BP 112/66; PULSE 89; RESP 20; TEMP 37.2; O2SAT 97
--- NOTE | 2023-01-08 21:01 | ED.GENADUL_ITS ---
Discharge Plan Disposition Patient Disposition: Home Discharge Details Clinical Impression: Alcoholic cirrhosis Primary Care Provider: Unknown,Unknown ED Provider: Davon Sims Home Meds and New Rx's Prescriptions: New chlordiazepoxide HCl 25 mg capsule 25 mg PO ONCE Qty: 15 0RF Rx Instructions: day1: 50mg (2 caps) q6hr; day2: 25mg (1 cap) q6hr; day3: 25 mg q12hr; day 4: 25 mg qhs No Action mirtazapine [Remeron] 15 mg Tablet 15 mg PO HS hydroxyzine pamoate [Vistaril] 25 mg Capsule 25 mg PO DAILY buprenorphine-naloxone 2-0.5 mg Tablet, Sublingual 2 tab SUBLINGUAL DAILY buprenorphine-naloxone 8-2 mg Tablet, Sublingual 2 tab SUBLINGUAL DAILY Discharge Instructions Instructions: Abuse of Alcohol (ED) Medical Decision Making 32-year-old female history of alcohol abuse, history of GI bleed, history of alcohol withdrawal seizures, recently discharged from [facility] emergency department after being treated for alcohol withdrawal and presumptive GI bleed endorses 1 seizure between discharge and presentation to our emergency department here. Patient is hemodynamically stable afebrile nontoxic abdomen soft nontender patient does have mild ascites. Pale dry skin and dry oral mucosa. Patient is on chronic lactulose says that her stool is loose. No evidence of tongue fasciculation or tremors. However given history will load with oral and IV benzos, will provide fluid for dehydration, will assess basic labs for electrolyte abnormality and anemia, will empirically administer Protonix. Disposition pending results. Consider resolved alcohol withdrawal seizure versus chronic GI bleed likely upper in nature related to possible varices associated with cirrhosis versus dehydration versus gastritis. 22: 20 patient resting comfortably no acute distress no tremors no tongue fasciculation no seizure activity here in department. No evidence of withdrawal. Labs largely unchanged from prior. Chronic anemia and thrombocytopenia. Patient amenable to Librium taper as an outpatient given strict instructions not to drink while taking this medication, given return precautions for any worsening symptoms. HPI General Date/Time Provider Initiated Documentation: 01/08/23 20:30 . HPI Narrative: 32-year-old female history of alcoholic cirrhosis, presents brought in by sister for evaluation of seizure as well as concern for GI bleed. Patient endorses that she has vomited blood in the past within the last several days and was passing dark stool within the last several days. Was admitted at [facility] and discharged today, per family without any medications. Family endorses 1 seizure between discharge and presentation here. Has not had a drink in over 24 hours. Related Data Home Medications Medication Instructions Recorded Confirmed hydroxyzine pamoate 25 mg capsule 25 mg PO DAILY 06/06/22 06/06/22 (Vistaril) mirtazapine 15 mg tablet (Remeron) 15 mg PO HS 06/06/22 06/06/22 buprenorphine 2 mg-naloxone 0.5 mg 2 tab sublingual DAILY 06/07/22 06/07/22 sublingual tablet buprenorphine 8 mg-naloxone 2 mg 2 tab sublingual DAILY 06/07/22 06/07/22 sublingual tablet chlordiazepoxide HCl 25 mg capsule 25 mg PO ONCE #15 caps 01/08/23 Previous Rx's Medication Instructions Recorded chlordiazepoxide HCl 25 mg capsule 25 mg PO ONCE #15 caps 01/08/23 Allergies Allergy/AdvReac Type Severity Reaction Status Date / Time clindamycin AdvReac Intermediate Nausea Unverified 06/06/22 14:27 General Stated Complaint: GI Bleed SUHA: 3 Review of Systems Narrative: Review of Systems Constitutional: negative Eyes: negative ENT: negative Cardiovascular: negative Respiratory: negative Gastrointestinal: GI bleed : negative Musculoskeletal: negative Skin: negative Neurologic: Seizure Psych: negative PFSH All Active Problems (Updated 01/08/23 @ 22:23 by Davon Sims MD) Abnormal gall bladder diagnostic imaging (Acute) Alcoholic (Chronic) Alcoholic cirrhosis (Chronic) Social History Smoking/Tobacco Use Status: Current every day Tobacco Type: cigarettes Smoking risk assessment performed?: Yes Alcohol Intake: current Alcohol Intake frequency: 3 or more drinks per day Alcohol type: hard liquor Drug use: Occasionally Substance use type: does not use Details: on suboxone for opiate addiction, drinks a fifth of vodka daily when drinking Do you feel safe at home: Yes Do you feel safe in your relationship?: Yes Exam Narrative Exam Narrative: Physical Examination General: alert, awake, cooperative, resting comfortably, no acute distress HEENT: normocephalic, atraumatic; PERRL, EOM intact, conjunctiva normal; no nasal discharge; dry oral mucosa Neck: supple, trachea midline; full ROM Chest: normal to inspection Respiratory: normal respiratory effort, speaking in full sentences, clear to auscultation, no wheezing, rales or rhonchi Cardiac: regular rate, regular rhythm, S1S2 intact, no murmurs rubs or gallops GI: abdomen soft, non-tender, non-distended; no palpable mass or hepatosplenomegaly; guaiac negative hard stool in rectal vault Skin: Pale, dry, cracked lips Neuro: AAOx3, normal speech, moving all extremities; no tremors no tongue fasciculation Psych: Appropriate mood and affect Course Vital Signs Vital signs: Vital Signs Temperature 37.2 C 01/08/23 20:34 Pulse 89 01/08/23 20:34 Respiratory Rate 20 01/08/23 20:34 Blood Pressure 112/66 01/08/23 20:34 Pulse Oximetry 97 01/08/23 20:34 Temperature 37.2 C 01/08/23 20:34 Temperature Source Oral 01/08/23 20:34 Pulse 89 01/08/23 20:34 Respiratory Rate 20 01/08/23 20:34 Blood Pressure 112/66 01/08/23 20:34 Blood Pressure Position Sitting 01/08/23 20:34 Pulse Oximetry 97 01/08/23 20:34 Oxygen Delivery Method Room Air 01/08/23 20:34 Oxygen Flow Rate 0 01/08/23 20:34 Pain Level 9 01/08/23 20:34
[2023-01-08 21:30] LABS: Abs Immature Grans 0.01 10^3/uL (0.0-0.06); Absolute Basophil Count 0.01 10^3/uL (0.0-0.2); Absolute Eosinophil Count 0.07 10^3/uL (0.0-0.7); Absolute Lymphocyte Count 1.47 10^3/uL (1.2-3.4); Absolute Monocyte Count 0.25 10^3/uL (0.1-0.8); Absolute Neutrophil Count 1.72 10^3/uL (1.2-6.7); Basophils % 0.3; HCT 28.3 % (36.0-46.0); HGB 9.4 g/dL (11.2-15.7); Immature Grans % 0.3; Lymphocytes % 41.6; MCH 29.6 pg (27.0-33.0); MCHC 33.2 % (32.0-36.0); MCV 89 fL (80-95); MPV 10.4 fL (8.0-11.0); Monocytes % 7.1; Neutrophils % 48.7; Platelet Count 43 10^3/uL (130-400); RBC 3.18 10^6/uL (3.93-5.22); RDW-SD 68.2 fL; WBC 3.53 10^3/uL (4.4-10.8)
[2023-01-08] MEDS: LORazepam 2 MG/ML VIAL 1 MG IVP (21:31)
[2023-01-08] MEDS: chlordiazePOXIDE 25 MG CAP 50 MG PO (21:32)
[2023-01-08] MEDS: Pantoprazole 40 MG VIAL IVP (21:32)
[2023-01-08] MEDS: Ondansetron 4 MG/2 ML VIAL IVP (21:33)
[2023-01-08 21:35] LABS: Anisocytosis 3+; Diff Comment Agrees w/ Instrument
[2023-01-08 21:40] LABS: ALT 39 U/L (14-59); AST 96 U/L (15-37); Alkaline Phosphatase 88 U/L (46-116); BUN 7 mg/dL (7-18); Bilirubin, Total 1.9 mg/dL (0.2-1.0); CREATININE 0.6 mg/dL (0.55-1.02); Calcium 8.3 mg/dL (8.5-10.1); Chloride 106 mmol/L (98-107); Estimated GFR 123.76 (mL/min/1.73m2); Glucose 113 mg/dL (74-106); Potassium 3.9 mmol/L (3.5-5.1); Sodium 137 mmol/L (136-145); Total Protein 6.8 g/dL (6.4-8.2)
[2023-01-08] MEDS: Lactated Ringers 1,000 ML 1000 ML IV (21:41)
[2023-01-08 22:39] VITALS: PULSE 100; RESP 16; O2SAT 94
== END 2023-01-08 22:40 | disposition home or self-care (01) ==
PROVIDERS: Emergency Provider Emergency Medicine
DX: K70.31 Alcoholic cirrhosis of liver with ascites (principal); D64.9 Anemia, unspecified; D69.6 Thrombocytopenia, unspecified
CPT/HCPCS: 36415; 80053; 96361; 96374; 96375; 99284; 85025; J2060; J2405

== ENCOUNTER 2023-09-12 10:32 | Inpatient (IN) | payer MEDICAID, SELFPAY ==
[2023-09-12] VITALS (244 sets, daily range): BP systolic 90–144; BP diastolic 47–99; PULSE 74–107; RESP 8–30; TEMP 36.4–37.2; O2SAT 85–96
[2023-09-12 11:23] LABS: Abs Immature Grans 0.01 10^3/uL (0.0-0.06); Absolute Basophil Count 0.01 10^3/uL (0.0-0.2); Absolute Eosinophil Count 0.04 10^3/uL (0.0-0.7); Absolute Monocyte Count 0.33 10^3/uL (0.1-0.8); Absolute Neutrophil Count 2.27 10^3/uL (1.2-6.7); Basophils % 0.3; HCT 26.9 % (36.0-46.0); HGB 8.5 g/dL (11.2-15.7); Immature Grans % 0.3; Lymphocytes % 31.1; MCH 24.9 pg (27.0-33.0); MCHC 31.6 % (32.0-36.0); MCV 79 fL (80-95); Monocytes % 8.5; Neutrophils % 58.8; RBC 3.42 10^6/uL (3.93-5.22); RDW 22.2 % (11.7-14.6); RDW-SD 63.6 fL; WBC 3.86 10^3/uL (4.4-10.8)
[2023-09-12] MEDS: LORazepam 2 MG/ML VIAL IVP ×3 (11:30→22:42)
[2023-09-12 11:32] LABS: Ammonia 59 umol/L (11-32)
[2023-09-12 11:38] LABS: ALT 53 U/L (14-59); AST 130 U/L (15-37); Alkaline Phosphatase 82 U/L (46-116); Anion Gap 7.5 mmol/L (3-11); BUN 4 mg/dL (7-18); Bilirubin, Total 1.4 mg/dL (0.2-1.0); CO2 29.5 mmol/L (21.0-32.0); CREATININE 0.6 mg/dL (0.55-1.02); Calcium 8.5 mg/dL (8.5-10.1); Chloride 103 mmol/L (98-107); ETHANOL BLOOD 95.7 mg/dL (<10); Estimated GFR 122.99 (mL/min/1.73m2); Glucose 147 mg/dL (74-106); Magnesium 1.1 mg/dL (1.8-2.4); Potassium 3.5 mmol/L (3.5-5.1); Sodium 140 mmol/L (136-145); Total Protein 7.4 g/dL (6.4-8.2)
[2023-09-12 11:39] LABS: PTT Activated 30.8 sec (23.6-32.8); Prothrombin Time 14.1 sec (9.1-11.1)
[2023-09-12 11:42] LABS: INR 1.4 (0.9-1.1)
[2023-09-12 11:46] LABS: Anisocytosis 2+; Diff Comment RBC Morph Reviewed; Microcytosis 1+; Platelet Count 25 10^3/uL (130-400)
[2023-09-12 12:09] LABS: COVID-19 PCR Negative (Negative); Influenza A PCR Negative (Negative); Influenza B PCR Negative (Negative); RSV PCR Negative (Negative)
[2023-09-12 12:10] LABS: Source Nasopharynx
--- NOTE | 2023-09-12 13:00 | DI.RAD_ITS ---
Exam(s) XR CHEST 2V PA LATERAL EXAM: XR CHEST 2V PA LATERAL CLINICAL HISTORY: cough TECHNIQUE: 2D digital imaging was performed. COMPARISON: No exams were available for comparison FINDINGS: HEART: Normal size. Aorta: Not dilated. PULMONARY VASCULATURE: Normal. LUNGS: Linear scarring both upper lobes. No evidence of consolidation. PLEURAL SPACE: No pleural effusion or pneumothorax. BONE:Unremarkable for age. Soft tissues: Unremarkable. IMPRESSION: No acute abnormality. DATA REPOSITORY: RADIATION DOSE DELIVERED:
--- NOTE | 2023-09-12 13:00 | DI.CT_ITS ---
Exam(s) CT HEAD WO EXAM: CT HEAD WO CLINICAL HISTORY: Seizure. TECHNIQUE: Imaging Protocol: Axial computed tomography images with coronal and sagittal reformatted images were created and reviewed COMPARISON: No exams were available for comparison FINDINGS: Ventricles and Extra axial spaces: Normal in size and morphology for the patient's age. Cavum septu m pellucidum variant. Hemorrhage: None. Cerebral parenchyma: No evidence of acute infarct or mass. Midline shift: None. Brainstem/Cerebellum: Normal. Calvarium: Normal. Visualized Paranasal sinuses/Mastoids: Clear. Soft Tissues: Unremarkable. IMPRESSION: No acute intracranial process. RADIATION DOSE DELIVERED: Total DLP DATA REPOSITORY: All CT scans at this facility are submitted to the National Radiology Data Registry (NRDR) Dose Index Registry (DIR) with the [employer] ([employer]). RADIATION OPTIMIZATION: All CT scans at this facility use at least one of these dose optimization te chniques: automated exposure control; mA and/or kV adjustment per patient size (includes targeted exa ms where dose is matched to clinical indication); or iterative reconstruction.
--- NOTE | 2023-09-12 13:05 | ED.GENADUL_ITS ---
Discharge Plan Disposition Patient Disposition: Admit to [facility] Discharge Details Clinical Impression: Alcoholic, Alcoholic cirrhosis, Pancytopenia, Alcohol withdrawal seizure, Hypomagnesemia Admit Date/Time: 09/12/23 15:31 Admit Provider: Beronica Armando Attending Provider: Beronica Armando Primary Care Provider: Unknown,Unknown ED Provider: Onel Puri Discharge Data Discharge Date/Time-TO BE ENTERED AT DEPARTURE: 09/12/23 18:09 Medical Decision Making Patient presenting to the emergency department for chief complaint of alcohol withdrawal seizures. Patient states that over the last 3 weeks she has started drinking again after a period of sobriety. Patient states this is due to social stressors. She needs to drink a significant amount between 1 PM and 5 PM and then stops because she does go to the methadone clinic to get her meds and needs to be sober before then. Patient also states that she has had a cough for a while and occasionally has blood-tinged sputum with coughing but no brigette red blood, no vomiting blood, no dark or tarry stools, no abnormal bruising or bleeding. Patient's main concern is her alcohol withdrawals which she stated she has been having. She did report drinking 1/5 of vodka but stopped last night around 5:00 PM. Has had this happen similarly in the past with her alcohol use. Patient has significant alcoholic cirrhosis with chronic thrombocytopenia and is on lactulose daily 40 mg twice daily/3 times daily. Physical exam shows upper extremity tremor, patient is ANO x3, does not appear acutely confused or severely altered. No other focal neurological deficits noted. We will plan on checking patient's labs and perform chest x-ray and head CT. Pending results will give patient Ativan to help with withdrawal symptoms. Of note patient is seeking help and assistance for her withdrawal as she states that she has been on a wait list for weeks to go to a rehab facility. Review of patient's labs show a significant but persistent anemia with hemoglobin of 8.5, thrombocytopenia with platelet count of 25, leukopenia, patient's INR is 1.4. Again asked patient and she denies any active bleeding. CMP does show hypomagnesemia at 1.1 so we will give 4 g IV mag, total bilirubin is up at 1.4, AST 130, ALT 53, alk phos 82. Ammonia is elevated at 59 so we will give patient 40 g of lactulose, albumin low at 3 and alcohol at 95.7. Reviewed CT imaging of chest which shows no consolidation otherwise does have some scarring. Head CT is somewhat limited by movement but no obvious emergent findings noted. Given the pancytopenia, elevated ammonia, low mag, and still scoring moderate on CIWA do feel that it would be beneficial to admit patient for further seizure monitoring, benzodiazepine, and establishment of safe discharge plan with referral to rehab facility if possible. Spoke with hospitalist who agreed with plan of care to have patient admitted . Lab Data Lab results reviewed: Yes I reviewed the patient's lab results. HPI General Mode of arrival: ambulatory . Date/Time Provider Initiated Documentation: 09/12/23 10:33 . Limitations to Documentation: no limitations . Information obtained by: patient, family and RN notes reviewed . History of Present Illness 33 year old F presents to the emergency department with the chief complaint of Seizures, described as similar to prior episodes, Patient started experiencing this day(s) (2) and it has been intermittent. No relieving factors improve symptom(s), No exacerbating factors reported . Patient notes cough. Patient did receive the following treatments prior to arrival, none Related Data Home Medications Medication Instructions Recorded Confirmed mirtazapine 15 mg tablet (Remeron) 30 mg PO HS 06/06/22 09/12/23 lactulose 10 gram/15 mL oral 10 g PO PRN 09/12/23 solution methadone 10 mg/5 mL oral solution 80 mg PO QDAY 09/12/23 09/12/23 Allergies Allergy/AdvReac Type Severity Reaction Status Date / Time clindamycin AdvReac Intermediate Nausea Unverified 09/12/23 10:47 General Stated Complaint: ETOHWithdr SUHA: 3 Review of Systems Constitutional Constitutional: Denies chills, Denies fever(s), Denies headache(s) and Reports malaise Eyes Eyes: Denies change in vision ENT Ears, Nose, Mouth, and Throat: Denies headache(s) Cardiovascular Cardiovascular: Denies chest pain and Denies dyspnea Respiratory Respiratory: Reports cough, Reports hemoptysis, Denies dyspnea and Reports wheezing Gastrointestinal Gastrointestinal: Denies abdominal pain, Denies melena, Denies hematochezia, Denies nausea and Denies hematemesis Integumentary/Breasts Skin/Breast: Denies unusual bruising and Denies wounds Neurologic Neurologic: Reports as per HPI, Reports confusion, Denies headache(s), Reports convulsions and Reports tremor(s) Psychiatric Psychiatric: Reports confusion Allergic/Immunologic Allergic/Immunologic: Reports wheezing PFSH All Active Problems (Updated 09/13/23 @ 18:45 by Onel Puri NP) Alcoholic hepatitis (Acute) Hepatic encephalopathy (Acute) Discharge planning issues (Acute) DVT prophylaxis (Acute) Hypomagnesemia (Acute) Coagulopathy (Chronic) Alcohol abuse (Chronic) Alcohol withdrawal seizure (Acute) Pancytopenia (Chronic) Abnormal gall bladder diagnostic imaging (Acute) Alcoholic (Chronic) Alcoholic cirrhosis (Chronic) Social History Smoking/Tobacco Use Status: Current every day Tobacco Type: cigarettes Smoking risk assessment performed?: Yes Alcohol Intake: current Alcohol Intake frequency: 3 or more drinks per day Alcohol type: hard liquor Drug use: Binges Substance use type: does not use and former substance user Details: on methadone 80mg for opiate addiction, drinks a fifth of vodka daily when drinking Housing: apartment Do you feel safe at home: Yes Do you feel safe in your relationship?: Yes Exam Const General: cooperative and no acute distress Orientation: alert, awake and oriented x3 HENMT Head: normocephalic, atraumatic, no Franco's sign and no raccoon eyes General nose exam: external nose normal Teeth and gingiva: edentulous Eyes General: appearance normal, both eyes and all related structures Resp Effort & Inspection: normal respiratory effort, able to speak in complete sentences and cough Quality of cough: actively coughing (Intermittent) Auscultation: clear to auscultation bilaterally Cardio Rate: tachycardic Rhythm: regular rhythm Heart Sounds: S1 normal and S2 normal Neuro General: patient alert, patient awake, patient oriented x3, tone normal, moves all extremities and no focal motor deficits Motor: tremor bilateral upper extremity resting tremor Course Vital Signs Vital signs: Vital Signs Temperature 36.6 C 09/12/23 10:39 Pulse 107 H 09/12/23 10:39 Respiratory Rate 18 09/12/23 10:39 Blood Pressure 131/83 09/12/23 10:39 Pulse Oximetry 96 09/12/23 10:39 Temperature 36.6 C 09/12/23 10:39 Temperature Source Tympanic 09/12/23 10:39 Pulse 86 09/12/23 12:15 Pulse Rhythm Regular 09/12/23 12:15 Pulse Strength Normal 09/12/23 12:15 Respiratory Rate 16 09/12/23 12:15 Respiratory Effort Normal, Non-Labored 09/12/23 12:15 Respiratory Depth Normal 09/12/23 12:15 Respiratory Pattern Normal 09/12/23 12:15 Blood Pressure 117/62 09/12/23 12:01 Blood Pressure Position Sitting 09/12/23 10:39 Pulse Oximetry 96 09/12/23 12:15 Oxygen Delivery Method Room Air 09/12/23 12:15 Oxygen Flow Rate 0 09/12/23 12:15 Pain Level 8 09/12/23 10:39 Lab/Test Results Lab/Test Results: Laboratory Tests Range/Units 09/12/23 09/12/23 11:10 11:12 WBC (4.4-10.8) 10^3/uL 3.86 L RBC (3.93-5.22) 10^6/uL 3.42 L Hgb (11.2-15.7) g/dL 8.5 L Hct (36.0-46.0) % 26.9 L MCV (80-95) fL 79 L MCH (27.0-33.0) pg 24.9 L MCHC (32.0-36.0) % 31.6 L RDW (11.7-14.6) % 22.2 H Plt Count (130-400) 10^3/uL 25 L* MPV (8.0-11.0) fL Immature Gran % 0.3 Neutrophils % 58.8 Lymphocytes % 31.1 Monocytes % 8.5 Eosinophils % 1.0 Basophils % 0.3 Nucleated RBC % (0.0-0.3) % 0.0 Absolute Neutrophils (1.2-6.7) 10^3/uL 2.27 Absolute Lymphocytes (1.2-3.4) 10^3/uL 1.20 Absolute Monocytes (0.1-0.8) 10^3/uL 0.33 Absolute Eosinophils (0.0-0.7) 10^3/uL 0.04 Absolute Basophils (0.0-0.2) 10^3/uL 0.01 RBC Morphology See Below Anisocytosis 2+ Microcytosis 1+ PT (9.1-11.1) sec 14.1 H INR (0.9-1.1) 1.4 H APTT (23.6-32.8) sec 30.8 Sodium (136-145) mmol/L 140 Potassium (3.5-5.1) mmol/L 3.5 Chloride (98-107) mmol/L 103 Carbon Dioxide (21.0-32.0) mmol/L 29.5 Anion Gap (3-11) mmol/L 7.5 BUN (7-18) mg/dL 4 L Creatinine (0.55-1.02) mg/dL 0.6 Est GFR (CKD-EPI 2020) (mL/min/1.73m2) 122.99 Glucose (74-106) mg/dL 147 H Calcium (8.5-10.1) mg/dL 8.5 Magnesium (1.8-2.4) mg/dL 1.1 L Total Bilirubin (0.2-1.0) mg/dL 1.4 H AST (15-37) U/L 130 H ALT (14-59) U/L 53 Alkaline Phosphatase (46-116) U/L 82 Ammonia (11-32) umol/L 59 H Total Protein (6.4-8.2) g/dL 7.4 Albumin (3.4-5.0) g/dL 3.0 L Ethyl Alcohol (<10) mg/dL 95.7 H COVID-19 Source Nasopharynx SARS-CoV-2 (PCR) (Negative) Negative Influenza Type A (PCR) (Negative) Negative Influenza Type B (PCR) (Negative) Negative RSV (PCR) (Negative) Negative PAWSS Have you Been Recently Intoxicated or Drunk Within the Last 30 days?: Yes Have you Ever Experienced Previous Episodes of Alcohol Withdrawal?: Yes Have you ever Experienced Withdrawal Seizures?: Yes Have you ever Experienced Delirium Tremens(DT)s?: Yes Have you ever undergone Alcohol Rehabilitation Treatment (i.e, inpt ot outpatient treatment programs)?: Yes Have you ever Experienced Blackouts?: Yes Have you ever Combined Alcohol with other Downers within the last 90 days?: No Have you ever Combined Alcohol with any other Substance of Abuse during the last 90 days?: No Positive Blood Alcohol level on Presentation? [PCS.BAL]: Unable to Obtain Evidence of Increased Autonomic Activity (i.e. HR>120, tremor, sweating, agitation, nausea)?: Yes Result: 7
--- NOTE | 2023-09-12 15:02 | DI.VRAD_ITS ---
PROCEDURE INFORMATION: Exam: XR Chest Exam date and time: 09/12/2023 2:30 PM Age: 33 years old Clinical indication: Cough TECHNIQUE: Imaging protocol: Radiologic exam of the chest. Views: 2 views. COMPARISON: CR XR CHEST 2V PA LATERAL 06/07/2022 8:14 AM FINDINGS: Lungs: There are linear opacities particularly in both upper lungs likely representing scarring or atelectasis. There is no new lobar consolidation or CHF Pleural spaces: A large pleural effusion, or pneumothorax is not seen Heart/Mediastinum: Heart, mediastinum are unchanged Bones/joints: Degenerative changes are seen in the spine. IMPRESSION: Linear opacities in the lungs consistent with scarring or atelectasis. No new airspace consolidation. Dictated and Authenticated by: Sue Li MD. Ordering:MARIA DE JESUS Sykes MD
--- NOTE | 2023-09-12 15:07 | DI.VRAD_ITS ---
PROCEDURE INFORMATION: Exam: CT Head Without Contrast Exam date and time: 09/12/2023 2:24 PM Age: 33 years old Clinical indication: Other: Seizures TECHNIQUE: Imaging protocol: Computed tomography of the head without contrast. COMPARISON: No relevant prior studies available. FINDINGS: Brain: There is no acute hemorrhage, mass or shift. There is no evidence of a cortical or major vascular territory infarct. Images are degraded by patient motion. There is a subtle focus of low attenuation within the right thalamus. Right thalamic lacune is not excluded although this appearance may represent artifact. There are no significant extra-axial collections. Cerebral ventricles: There is no significant ventricular enlargement/hydrocephalus. There is a small cavum septum pellucidum and vergae. Paranasal sinuses: There is no significant sinus opacification or fluid level Mastoid air cells: There is no significant mastoid or middle ear opacification Orbital cavities: There is no significant orbital abnormality Bones/joints: There is no acute bony abnormality Soft tissues: Unremarkable. Other findings: Exam mildly degraded by motion IMPRESSION: Exam degraded by motion. No evidence of hemorrhage mass or shift. Thalamic lacune is not excluded although this finding may represent artifact. If further evaluation is clinically indicated, MR correlation recommended. Dictated and Authenticated by: Sue Li MD. Ordering:MARIA DE JESUS Sykes MD
--- NOTE | 2023-09-12 15:32 | W.PM.HP.N ---
Date of service: 09/12/23 Time of Service: 15:32 Assessment and Plan Assessment and plan (1) Alcohol withdrawal seizure: Status: Acute Assessment and plan: Admit to the ICU. Monitor on the CIWA protocol. Unfortunately, not a candidate for phenobarbital since she is on methadone therapy. CT head of poor quality - consider repeat. Supplement thiamine, MVI; check b12/folate. (2) Alcohol abuse: Status: Chronic Assessment and plan: As above The patient was reported to the ER provider that she was interested in going to rehab. We will provide information on resources in the community. (3) Pancytopenia: Status: Chronic Assessment and plan: Check anemia studies. Thrombocytopenia could be contributing to the scant hemoptysis. (4) Hepatic encephalopathy: Status: Acute Assessment and plan: Continue home lactulose (5) Alcoholic cirrhosis: Status: Chronic Assessment and plan: With thrombocytopenia and coagulopathy as well as encephalopathy. High risk for varices and catastrophic bleeding. C/s palliative care. (6) Coagulopathy: Status: Chronic Assessment and plan: In setting of cirrhosis Monitor for bleeding. (7) Hypomagnesemia: Status: Acute Assessment and plan: Replete (8) DVT prophylaxis: Status: Acute Assessment and plan: TEDs Chemical DVT ppx is contraindicated given thrombocytopenia, coagulopathy, h/o variceal bleeding. (9) Discharge planning issues: Status: Acute Assessment and plan: Full code Admit to the ICU. C/s palliative care. High risk of catastrophic variceal bleeding. Total Critical Care Time 45 minutes. History of Present Illness History of Present Illness Chief Complaint: Having seizures at home. Narrative: Ms Sarah is a 33 year old female with PMHx of EtOH abuse and prior withdrawal, h/o alcoholic cirrhosis with varices w/ h/o bleeding s/p banding last year, coagulopathy, and thrombocytopenia, as well as opioid dependence on methadone, who had stopped drinking for about 6 months but then started to again 3-5 weeks ago and who presented to [facility] ED after starting to have what she describes as seizures last night. She was found to be tremulous with CIWA score of 13 (improved, but now back up to 12). She was initiated on a benzodiazepine pathway. Otherwise, her bloodwork reveals Hgb of 8.5, down from 9.4. Her platelet count is 25 (had been in the 20s in 2021, though had improved up to 43 in 12/2022); her INR is 1.4, magnesium is 1.1. Her ammonia is 59. She was treated with lactulose. Magnesium was repleted. A hospitalist admission was requested. The patient is being admitted to the ICU. The patient states that she last drank yesterday at 5 pm and that she had 3 seizures. She did not bite her tongue or have urinary or fecal incontinence. She has been drinking for a couple of months again and states she had been waiting for a bed at rehab for at least a month. She endorses a chronic cough productive of greenish/brown sputum. Today she had noticed that it was blood tinged. She does not recall having a nose bleed. She endorses dizziness and nausea. She is full code. Review of Systems All systems reviewed & are unremarkable except as noted in HPI and below PFSH All Active Problems (Updated 09/12/23 @ 15:46 by Beronica Armando MD) Hepatic encephalopathy (Acute) Discharge planning issues (Acute) DVT prophylaxis (Acute) Hypomagnesemia (Acute) Coagulopathy (Chronic) Alcohol abuse (Chronic) Alcohol withdrawal seizure (Acute) Pancytopenia (Chronic) Abnormal gall bladder diagnostic imaging (Acute) Alcoholic (Chronic) Alcoholic cirrhosis (Chronic) Social History Smoking/Tobacco Use Status: Current every day Tobacco Type: cigarettes Smoking risk assessment performed?: Yes Alcohol Intake: current Alcohol Intake frequency: 3 or more drinks per day Alcohol type: hard liquor Drug use: Binges Substance use type: does not use and former substance user Details: on methadone 80mg for opiate addiction, drinks a fifth of vodka daily when drinking Housing: apartment Do you feel safe at home: Yes Do you feel safe in your relationship?: Yes Meds Allergies and Home Medications Allergies Allergy/AdvReac Type Severity Reaction Status Date / Time clindamycin AdvReac Intermediate Nausea Unverified 09/12/23 10:47 Home Medications Medication Instructions Recorded Confirmed Type mirtazapine 15 mg tablet (Remeron) 30 mg PO HS 06/06/22 09/12/23 History lactulose 10 gram/15 mL oral 10 g PO PRN 09/12/23 History solution methadone 10 mg/5 mL oral solution 80 mg PO QDAY 09/12/23 09/12/23 History Exam Narrative Exam Narrative: General: A very tremulous female who is A&Ox3, able to provide history, does not appear to be hallucinating. Neurological: A&Ox3, tremulous, no focal deficits Psychiatric: Anxious, otherwise appropriate speech pattern/content Skin: Bandaid on her R cheek, otherwise multiple tattoos HEENT: Bandaid on R cheek, normocephalic, EOMI, MMM, clear oropharynx, very minimal scleral icterus, no submandibular or cervical lymphadenopathy, no goiter or JVD Cardiovascular: RRR, mildly tachycardic, no m/r/g Lungs: CTAB Gastrointestinal: soft, nontender, nondistended Genitourinary: deferred Extremities: trace edema BLEs, no c/c, 2+ pedal pulses B Results Imaging Additional studies: CXR: Linear opacities in the lungs consistent with scarring or atelectasis. No new airspace consolidation. CT head w/o contrast: Exam degraded by motion. No evidence of hemorrhage mass or shift. Thalamic lacune is not excluded although this finding may represent artifact. If further evaluation is clinically indicated, MR correlation recommended. Labs 09/12/23 11:10 09/12/23 11:10 Labs: Laboratory Results - last 24 hr 09/12/23 09/12/23 11:10 11:12 WBC 3.86 L RBC 3.42 L Hgb 8.5 L Hct 26.9 L MCV 79 L MCH 24.9 L MCHC 31.6 L RDW 22.2 H Plt Count 25 L* MPV Immature Gran % 0.3 Neutrophils % 58.8 Lymphocytes % 31.1 Monocytes % 8.5 Eosinophils % 1.0 Basophils % 0.3 Nucleated RBC % 0.0 Absolute Neutrophils 2.27 Absolute Lymphocytes 1.20 Absolute Monocytes 0.33 Absolute Eosinophils 0.04 Absolute Basophils 0.01 RBC Morphology See Below Anisocytosis 2+ Microcytosis 1+ PT 14.1 H INR 1.4 H APTT 30.8 Sodium 140 Potassium 3.5 Chloride 103 Carbon Dioxide 29.5 Anion Gap 7.5 BUN 4 L Creatinine 0.6 Est GFR (CKD-EPI 2020) 122.99 Glucose 147 H Calcium 8.5 Magnesium 1.1 L Total Bilirubin 1.4 H AST 130 H ALT 53 Alkaline Phosphatase 82 Ammonia 59 H Total Protein 7.4 Albumin 3.0 L Ethyl Alcohol 95.7 H COVID-19 Source Nasopharynx SARS-CoV-2 (PCR) Negative Influenza Type A (PCR) Negative Influenza Type B (PCR) Negative RSV (PCR) Negative Last Vital Signs Temp 36.6 C 09/12/23 10:39 Pulse 86 09/12/23 12:15 Resp 16 09/12/23 12:15 BP 117/62 09/12/23 12:01 Pulse Ox 96 09/12/23 12:15 PAWSS Have you Been Recently Intoxicated or Drunk Within the Last 30 days?: Yes Have you Ever Experienced Previous Episodes of Alcohol Withdrawal?: Yes Have you ever Experienced Withdrawal Seizures?: Yes Have you ever Experienced Delirium Tremens(DT)s?: Yes Have you ever undergone Alcohol Rehabilitation Treatment (i.e, inpt ot outpatient treatment programs)?: Yes Have you ever Experienced Blackouts?: Yes Have you ever Combined Alcohol with other Downers within the last 90 days?: No Have you ever Combined Alcohol with any other Substance of Abuse during the last 90 days?: No Positive Blood Alcohol level on Presentation? [PCS.BAL]: Unable to Obtain Evidence of Increased Autonomic Activity (i.e. HR>120, tremor, sweating, agitation, nausea)?: Yes Result: 7 Time Spent Time spent with Patient: 55-74 minutes Time was spent: preparing to see the patient(eg.review tests), obtaining and/or reviewing separately otained hiistory, ordering medications,tests, procedures, referring, communicating with other health field care coordinator, indepentently interpreting results, counseling the patient and care coordination
[2023-09-12] MEDS: LORazepam 2 MG/ML VIAL 3 MG IVP (15:39)
[2023-09-12] MEDS: MAGNESIUM SULFATE 4 GM/100 ML BAG IVPB (15:41)
[2023-09-12] MEDS: THIAMINE 100 MG in Normal Saline 100 ML 200 MG IVPB (15:52)
[2023-09-12] MEDS: Lactulose 20 GM/30 ML CUP PO ×3 (15:53→21:01)
[2023-09-12 20:43] LABS: Lab Add On Test DONE
[2023-09-12 20:56] LABS: Creatine Kinase 325 U/L (26-192)
[2023-09-12] MEDS: Mirtazapine 15 MG TAB 30 MG PO (22:41)
[2023-09-12] MEDS: Normal Saline Flush 10 ML SYR IVP (22:41)
[2023-09-13] VITALS (110 sets, daily range): BP systolic 100–121; BP diastolic 58–83; PULSE 78–105; RESP 9–27; TEMP 37.3–38.2; O2SAT 87–100
[2023-09-13] MEDS: LORazepam 2 MG/ML VIAL IVP ×3 (00:49→05:39)
[2023-09-13 06:27] LABS: Abs Immature Grans 0.01 10^3/uL (0.0-0.06); Absolute Eosinophil Count 0.05 10^3/uL (0.0-0.7); Absolute Lymphocyte Count 1.14 10^3/uL (1.2-3.4); Absolute Monocyte Count 0.24 10^3/uL (0.1-0.8); Absolute Neutrophil Count 1.25 10^3/uL (1.2-6.7); Eosinophils % 1.9; HGB 8.2 g/dL (11.2-15.7); Immature Grans % 0.4; Lymphocytes % 42.4; MCH 24.9 pg (27.0-33.0); MCHC 31.5 % (32.0-36.0); MCV 79 fL (80-95); Monocytes % 8.9; Neutrophils % 46.4; RBC 3.29 10^6/uL (3.93-5.22); RDW 22.1 % (11.7-14.6); RDW-SD 63.6 fL; WBC 2.69 10^3/uL (4.4-10.8)
[2023-09-13 06:37] LABS: Prothrombin Time 14.1 sec (9.1-11.1)
[2023-09-13 06:43] LABS: INR 1.4 (0.9-1.1)
[2023-09-13 06:45] LABS: Anisocytosis 2+; Platelet Count 20 10^3/uL (130-400)
[2023-09-13 06:54] LABS: ALT 46 U/L (14-59); AST 109 U/L (15-37); Albumin 2.7 g/dL (3.4-5.0); Alkaline Phosphatase 72 U/L (46-116); Anion Gap 5.3 mmol/L (3-11); BUN 4 mg/dL (7-18); CO2 30.7 mmol/L (21.0-32.0); CREATININE 0.6 mg/dL (0.55-1.02); Calcium 8.2 mg/dL (8.5-10.1); Chloride 103 mmol/L (98-107); Estimated GFR 122.99 (mL/min/1.73m2); Glucose 85 mg/dL (74-106); Magnesium 1.6 mg/dL (1.8-2.4); Potassium 3.1 mmol/L (3.5-5.1); Sodium 139 mmol/L (136-145); Total Protein 6.9 g/dL (6.4-8.2)
[2023-09-13 06:55] LABS: Iron 82 ug/dL (50-170); Total Iron Binding Capacity 287 ug/dL (250-450); Transferrin Sat 29 % (15-50)
[2023-09-13 07:31] LABS: Ferritin 24 ng/mL (8-252); Vitamin B12 967 pg/mL (193-986)
[2023-09-13 07:33] LABS: Lab Add On Test DONE
[2023-09-13 07:45] LABS: Creatine Kinase 182 U/L (26-192)
[2023-09-13] MEDS: Multivitamin TAB 1 TAB PO (09:13)
[2023-09-13] MEDS: LORazepam 1 MG TAB PO/SL ×6 (09:13→23:26)
[2023-09-13] MEDS: Thiamine 100 MG TAB PO (09:13)
[2023-09-13] MEDS: Folic Acid 1 MG TAB PO (09:13)
--- NOTE | 2023-09-13 09:13 | PGE_ITS ---
Date of Service Date of service: 09/30/23 Time of Service: 09:13 Assessment and Plan Assessment and plan (1) Alcohol withdrawal seizure: Status: Acute Assessment and plan: Continue monitoring on the ICU on CIWA with benzodiazepine protocol. I did discuss her risk of intubation with her given her high CIWA scores and benzodiazepine requirements. She is full code, as confirmed. I downgraded the diet to clears. Not a candidate for phenobarbital since she is on methadone therapy. Supplement thiamine, MVI; B12/folate are adequate. (2) Alcoholic hepatitis: Status: Acute Assessment and plan: Discriminant function score is 17.3 - good prognosis; no role for steroids. Monitor PTT, LFTs. (3) Alcohol abuse: Status: Chronic Assessment and plan: As above The patient was reported to the ER provider that she was interested in going to rehab. We will provide information on resources in the community. (4) Pancytopenia: Status: Chronic Assessment and plan: Both WBC and plts are worse today. Monitor for bleeding and infection. Thrombocytopenia could be contributing to the scant hemoptysis. (5) Hepatic encephalopathy: Status: Acute Assessment and plan: Continue home lactulose (6) Alcoholic cirrhosis: Status: Chronic Assessment and plan: With thrombocytopenia and coagulopathy as well as encephalopathy. High risk for varices and catastrophic bleeding. Palliative care consulted. (7) Coagulopathy: Status: Chronic Assessment and plan: In setting of cirrhosis Monitor for bleeding. (8) Hypomagnesemia: Status: Acute Assessment and plan: Replete (9) DVT prophylaxis: Status: Acute Assessment and plan: TEDs Chemical DVT ppx is contraindicated given thrombocytopenia, coagulopathy, h/o variceal bleeding. (10) Discharge planning issues: Status: Acute Assessment and plan: Full code Keep in ICU. Await palliative care consult. High risk of intubation and catastrophic variceal bleeding. Total Critical Care Time 35 minutes. Subjective Subjective Interval history since last seen: Ms Sarah states she is seeing lines that are not there. Reports some dizziness and headache, Denies CP, endorses some SOB and nausea. About to receive 1 mg of lorazepam. CIWA scores overnight: 7-29. CIWA is 6 this am. No bleeding reported. Requiring 2L of O2 by NC this am (desaturates to 87-88% on RA). Not taking deep breaths. Tmax 37.8 Exam Narrative Exam Narrative: General: A somnolent tremulous female with nasal canula (2L) on; A&Ox3 when awake; was asleep sitting up in bed. Cooperative, following commands, answering questions appropriately. HEENT: EOMI, MMM Cardiovascular: RRR, tachycardic, no m/r/g Lungs: wheezing on inspiration which clears with coughing; then, CTAB Gastrointestinal: soft, nontender, nondistended Extremities: trace edema BLEs, no c/c, 2+ pedal pulses B Objective Last Vital Signs Temp 37.5 C 09/13/23 06:01 Pulse 85 09/13/23 06:01 Resp 17 09/13/23 06:10 BP 101/62 09/13/23 06:01 Pulse Ox 95 09/13/23 06:10 Laboratory Results - last 24 hr 09/12/23 09/12/23 09/12/23 11:10 11:11 11:12 WBC 3.86 L RBC 3.42 L Hgb 8.5 L Hct 26.9 L MCV 79 L MCH 24.9 L MCHC 31.6 L RDW 22.2 H Plt Count 25 L* MPV Immature Gran % 0.3 Neutrophils % 58.8 Lymphocytes % 31.1 Monocytes % 8.5 Eosinophils % 1.0 Basophils % 0.3 Nucleated RBC % 0.0 Absolute Neutrophils 2.27 Absolute Lymphocytes 1.20 Absolute Monocytes 0.33 Absolute Eosinophils 0.04 Absolute Basophils 0.01 RBC Morphology See Below Anisocytosis 2+ Microcytosis 1+ PT 14.1 H INR 1.4 H APTT 30.8 Sodium 140 Potassium 3.5 Chloride 103 Carbon Dioxide 29.5 Anion Gap 7.5 BUN 4 L Creatinine 0.6 Est GFR (CKD-EPI 2020) 122.99 Glucose 147 H Calcium 8.5 Magnesium 1.1 L Iron TIBC Transferrin % Sat Ferritin Total Bilirubin 1.4 H Conjugated Bilirubin AST 130 H ALT 53 Alkaline Phosphatase 82 Ammonia 59 H Creatine Kinase 325 H Total Protein 7.4 Albumin 3.0 L Vitamin B12 Folate Ethyl Alcohol 95.7 H COVID-19 Source Nasopharynx SARS-CoV-2 (PCR) Negative Influenza Type A (PCR) Negative Influenza Type B (PCR) Negative RSV (PCR) Negative Add-On Test Request DONE 09/13/23 05:40 WBC 2.69 L RBC 3.29 L Hgb 8.2 L Hct 26.0 L MCV 79 L MCH 24.9 L MCHC 31.5 L RDW 22.1 H Plt Count 20 L* MPV Immature Gran % 0.4 Neutrophils % 46.4 Lymphocytes % 42.4 Monocytes % 8.9 Eosinophils % 1.9 Basophils % 0.0 Nucleated RBC % 0.0 Absolute Neutrophils 1.25 Absolute Lymphocytes 1.14 L Absolute Monocytes 0.24 Absolute Eosinophils 0.05 Absolute Basophils 0.00 RBC Morphology See Below Anisocytosis 2+ Microcytosis PT 14.1 H INR 1.4 H APTT Sodium 139 Potassium 3.1 L Chloride 103 Carbon Dioxide 30.7 Anion Gap 5.3 BUN 4 L Creatinine 0.6 Est GFR (CKD-EPI 2020) 122.99 Glucose 85 Calcium 8.2 L Magnesium 1.6 L Iron 82 TIBC 287 Transferrin % Sat 29 Ferritin 24 Total Bilirubin 3.0 H Conjugated Bilirubin 1.0 H AST 109 H ALT 46 Alkaline Phosphatase 72 Ammonia Creatine Kinase 182 Total Protein 6.9 Albumin 2.7 L Vitamin B12 967 Folate 15.0 Ethyl Alcohol COVID-19 Source SARS-CoV-2 (PCR) Influenza Type A (PCR) Influenza Type B (PCR) RSV (PCR) Add-On Test Request DONE PAWSS Have you Been Recently Intoxicated or Drunk Within the Last 30 days?: Yes Have you Ever Experienced Previous Episodes of Alcohol Withdrawal?: Yes Have you ever Experienced Withdrawal Seizures?: Yes Have you ever Experienced Delirium Tremens(DT)s?: Yes Have you ever undergone Alcohol Rehabilitation Treatment (i.e, inpt ot outpatient treatment programs)?: Yes Have you ever Experienced Blackouts?: Yes Have you ever Combined Alcohol with other Downers within the last 90 days?: No Have you ever Combined Alcohol with any other Substance of Abuse during the last 90 days?: No Positive Blood Alcohol level on Presentation? [PCS.BAL]: Unable to Obtain Evidence of Increased Autonomic Activity (i.e. HR>120, tremor, sweating, agitation, nausea)?: Yes Result: 7 Multi-Disciplinary Checklist Lines/Tubes CENTRAL LINE: no ARTERIAL LINE: no LAZO: no ENDOTRACHEAL TUBE: no ICU Maintenance GLUCOSE 140-180mg/dL: yes NUTRITION AT GOAL: no, Reason/Intervention: Downgraded to clears due to high risk of requiring intubation PRESSURE ULCER: no RESTRAINTS: no ANTIBIOTICS(if yes, consider Stewardship): No Social Issues FAMILY UPDATED: no, Reason/Intervention: Patient is able to update family PT/OT: no, Reason/Intervention: Patient is ambulatory GOALS/DISPOSITION/SERVICES PROGRAM MANAGER: yes CODE STATUS: Full Prophylaxis DVT PROPHYLAXIS: yes GI PROPHYLAXIS: yes, Indication: Patient is nauseated, has varices, not eating consistently Time Spent with Patient Time Spent with Patient: 35-49 minutes Time was spent: preparing to see the patient(eg.review tests), obtaining and/or reviewing separately otained hiistory, ordering medications,tests, procedures, referring, communicating with other health career resource specialist, indepentently interpreting results, counseling the patient and care coordination
[2023-09-13] MEDS: Pantoprazole 40 MG TABCR PO (09:14)
[2023-09-13] MEDS: Magnesium Chloride 64 MG TABCR PO ×2 (09:14→19:58)
[2023-09-13] MEDS: Lactulose 20 GM/30 ML CUP PO ×2 (09:15→19:58)
[2023-09-13] MEDS: POTASSIUM CHLORIDE 20 MEQ/100 ML BAG 50 MEQ IVPB ×2 (09:15→13:52)
[2023-09-13] MEDS: Ondansetron 4 MG/2 ML VIAL IVP ×2 (09:16→17:03)
[2023-09-13 09:33] LABS: Lab Add On Test DONE
[2023-09-13 10:02] LABS: Procalcitonin < 0.1 ng/mL
[2023-09-13] MEDS: Methadone Liquid 10 MG/ML 80 MG PO (10:04)
--- NOTE | 2023-09-13 10:37 | INITIAL_ITS ---
Date of service: 09/13/23 Time of Service: 10:37 Care Management Initial Assmt Initial Assessment REASON FOR HOSPITALIZATION:: alcohol withdrawal seizure PREVIOUS FUNCTIONAL STATUS/SOCIAL/FAMILY SUPPORTS:: Randi is from the [facility] although she and her Robbie Barnhart are currently homeless. She has 2 children but they do not live with her. One was adopted by their grandmother and the other is with their father. Randi is not currently employed and is pursuing a disability determination. She receives [facility] and is connected with [facility] for methadone maintenance. Randi is independent at baseline. CURRENT FUNCTIONAL STATUS:: Randi was sitting up in bed when CM met with her. She was visibly tremulous and seemed to have difficulty answering questions as she appeared a bit groggy. Her CIWA score this morning was 23 although most recently at noon, it was down to 8. She has been receiving prn medication per protocol. Randi remains ICU level of care due to being at high risk for requiring intubation and also for seizures. ADVANCE DIRECTIVES:: none on file Has patient been provided with info about the portal/API?: Yes Did the patient sign up for the portal?: No CODE STATUS:: Full Code INSURANCE COVERAGE / FINANCIAL ISSUES:: Medicaid CURRENT HOME/COMMUNITY SERVICES/EQUIPMENT:: [facility], [facility], [facility] PRIMARY CARE PHYSICIAN:: [facility] in [place], [place] POTENTIAL DISCHARGE NEEDS:: NETTE treatment PATIENT/FAMILY EDUCATION NEEDS:: Review of discharge instructions, limitations, activity, diet, follow up plan, community resources for SUDs, discuss Ask Me Three TRANSPORTATION:: via private vehicle with family/friends vs RCT PLAN:: Anticipate Randi will be discharged with no new services when medically cleared. She may benefit from NETTE treatment and will be provided with information re: available resources.. She will follow up with community providers and plan of care and transport with a friend vs RCT. CM will follow and continue to assess for discharge needs. PFSH All Active Problems (Updated 09/13/23 @ 09:28 by Beronica Armando MD) Alcoholic hepatitis (Acute) Hepatic encephalopathy (Acute) Discharge planning issues (Acute) DVT prophylaxis (Acute) Hypomagnesemia (Acute) Coagulopathy (Chronic) Alcohol abuse (Chronic) Alcohol withdrawal seizure (Acute) Pancytopenia (Chronic) Abnormal gall bladder diagnostic imaging (Acute) Alcoholic (Chronic) Alcoholic cirrhosis (Chronic) Social History Smoking/Tobacco Use Status: Current every day Tobacco Type: cigarettes Smoking risk assessment performed?: Yes Alcohol Intake: current Alcohol Intake frequency: 3 or more drinks per day Alcohol type: hard liquor Drug use: Binges Substance use type: does not use and former substance user Details: on methadone 80mg for opiate addiction, drinks a fifth of vodka daily when drinking Housing: apartment Do you feel safe at home: Yes Do you feel safe in your relationship?: Yes
[2023-09-13] MEDS: MAGNESIUM SULFATE 4 GM/100 ML BAG IVPB (11:27)
[2023-09-13] MEDS: Mirtazapine 15 MG TAB 30 MG PO (19:58)
[2023-09-14] VITALS (39 sets, daily range): BP systolic 98–120; BP diastolic 58–93; PULSE 80–125; RESP 8–37; TEMP 37–38; O2SAT 87–97
--- NOTE | 2023-09-14 | DI.RAD_ITS ---
Exam(s) XR PORTABLE CHEST AP EXAM: XR PORTABLE CHEST AP CLINICAL HISTORY: hypoxia, cough, fever, ?PNA TECHNIQUE: 2D digital imaging was performed. COMPARISON: CR,XR XR CHEST 2V PA LATERAL from 09/12/2023 FINDINGS: Exam limited by poor pulmonary inflation. LUNGS: Increased densities at the left lung base, atelectasis versus infiltrate. Mild increased dens ities also seen at the right lung base. No pleural abnormality seen. HEART: Normal size. AORTA: Normal diameter. BONES: Unremarkable for age. Soft tissues: Unremarkable. IMPRESSION: Bibasilar densities, greater than right, infiltrates versus atelectasis DATA REPOSITORY: RADIATION DOSE DELIVERED:
[2023-09-14] MEDS: LORazepam 1 MG TAB PO/SL ×4 (02:48→20:25)
[2023-09-14 05:42] LABS: Absolute Basophil Count 0.01 10^3/uL (0.0-0.2); Absolute Eosinophil Count 0.06 10^3/uL (0.0-0.7); Absolute Lymphocyte Count 1.11 10^3/uL (1.2-3.4); Absolute Neutrophil Count 1.17 10^3/uL (1.2-6.7); Basophils % 0.4; Eosinophils % 2.4; HCT 25.5 % (36.0-46.0); HGB 8.2 g/dL (11.2-15.7); Lymphocytes % 43.5; MCH 25.8 pg (27.0-33.0); MCHC 32.2 % (32.0-36.0); MCV 80 fL (80-95); Monocytes % 7.8; Neutrophils % 45.9; RBC 3.18 10^6/uL (3.93-5.22); RDW 21.7 % (11.7-14.6); RDW-SD 63.7 fL; WBC 2.55 10^3/uL (4.4-10.8)
[2023-09-14 06:00] LABS: ALT 40 U/L (14-59); AST 92 U/L (15-37); Albumin 2.7 g/dL (3.4-5.0); Alkaline Phosphatase 73 U/L (46-116); Anion Gap 4.5 mmol/L (3-11); BUN 2 mg/dL (7-18); Bilirubin, Direct 1.4 mg/dL (0.0-0.2); Bilirubin, Total 3.4 mg/dL (0.2-1.0); CO2 27.5 mmol/L (21.0-32.0); CREATININE 0.6 mg/dL (0.55-1.02); Calcium 8.4 mg/dL (8.5-10.1); Chloride 105 mmol/L (98-107); Estimated GFR 122.99 (mL/min/1.73m2); Glucose 85 mg/dL (74-106); Magnesium 1.7 mg/dL (1.8-2.4); Potassium 3.9 mmol/L (3.5-5.1); Sodium 137 mmol/L (136-145); Total Protein 6.9 g/dL (6.4-8.2)
[2023-09-14 06:04] LABS: INR 1.5 (0.9-1.1); Prothrombin Time 14.7 sec (9.1-11.1)
[2023-09-14 06:12] LABS: Ammonia 72 umol/L (11-32)
[2023-09-14 06:47] LABS: Anisocytosis 2+; Diff Comment Diff Reviewed; Platelet Count 21 10^3/uL (130-400)
[2023-09-14] MEDS: Methadone Liquid 10 MG/ML 80 MG PO (10:12)
[2023-09-14] MEDS: Lactulose 20 GM/30 ML CUP PO ×3 (10:13→20:25)
[2023-09-14] MEDS: Pantoprazole 40 MG TABCR PO (10:14)
[2023-09-14] MEDS: Thiamine 100 MG TAB PO (10:14)
[2023-09-14] MEDS: Multivitamin TAB 1 TAB PO (10:14)
[2023-09-14] MEDS: Magnesium Chloride 64 MG TABCR PO ×2 (10:14→20:25)
[2023-09-14] MEDS: Folic Acid 1 MG TAB PO (10:14)
[2023-09-14] MEDS: Phytonadione 5 MG TABLET 2.5 MG PO (10:14)
[2023-09-14] MEDS: MAGNESIUM SULFATE 2 GM/50 ML BAG IVPB (10:28)
[2023-09-14] MEDS: DOXYCYCLINE 100 MG in Normal Saline 100 ML IVPB ×2 (10:36→20:39)
--- NOTE | 2023-09-14 10:37 | PGE_ITS ---
Date of Service Date of service: 09/14/23 Time of Service: 10:37 Assessment and Plan Assessment and plan (1) Alcohol withdrawal seizure: Status: Acute Assessment and plan: Continue monitoring on the ICU on CIWA with benzodiazepine protocol. Continue clear liquid diet as I feel the patient is still at risk of intubation for respiratory depression. Not a candidate for phenobarbital since she is on methadone therapy (but we will clarify this). Supplement thiamine, MVI; B12/folate are adequate. Check CPK. (2) Pneumonia: Status: Acute Assessment and plan: Blood cultures collected. Start doxycycline/ceftriaxone. Rechecking COVID-19 pCR. (3) Alcoholic hepatitis: Status: Acute Assessment and plan: Discriminant function score is 20.4, moving in the wrong direction, though prognosis is still good from this stand point and tehre is no role for steroids. Monitor PTT, LFTs. (4) Alcohol abuse: Status: Chronic Assessment and plan: As above The patient was reported to the ER provider that she was interested in going to rehab. We will provide information on resources in the community. (5) Pancytopenia: Status: Chronic Assessment and plan: Rechecking COVID-19 PCR. Acute on chronic. Monitor for bleeding and infection. Thrombocytopenia could be contributing to the scant hemoptysis on presentation, which has resolved. (6) Hepatic encephalopathy: Status: Acute Assessment and plan: Continue home lactulose (increase dose). (7) Alcoholic cirrhosis: Status: Chronic Assessment and plan: With thrombocytopenia and coagulopathy as well as encephalopathy. High risk for varices and catastrophic bleeding. Palliative care consulted. (8) Coagulopathy: Status: Chronic Assessment and plan: In setting of cirrhosis Monitor for bleeding. (9) Hypomagnesemia: Status: Acute Assessment and plan: Replete (10) DVT prophylaxis: Status: Acute Assessment and plan: TEDs Chemical DVT ppx is contraindicated given thrombocytopenia, coagulopathy, h/o variceal bleeding. (11) Discharge planning issues: Status: Acute Assessment and plan: Full code Keep in ICU. Await palliative care consult. High risk of intubation and catastrophic variceal bleeding. Total Critical Care Time 35 minutes. Subjective Subjective Interval history since last seen: Ms Sarah reports headache, dizziness, sensitivity to light and sound, hearing and seeing things, nausea, tremors. Reports myalgias. Had a fever of 38.2. Her CIWA scores have been 13-18. CIWA score now is 15. No CP, SOB. Exam Narrative Exam Narrative: General: A somnolent but easily arousable tremulous female with nasal canula (2L) on; A&Ox3 when awake Cooperative, following commands, answering questions appropriately. HEENT: EOMI, MMM, not actively bleeding facial abrasions (present on admission too) Cardiovascular: RRR, tachycardic, no m/r/g Lungs: CTAB Gastrointestinal: soft, nontender, nondistended Extremities: trace edema BLEs, no c/c, 2+ pedal pulses B Objective Last Vital Signs Temp 38.0 C H 09/14/23 03:13 Pulse 103 H 09/14/23 10:08 Resp 18 09/14/23 10:08 BP 113/69 09/14/23 10:08 Pulse Ox 94 09/14/23 10:08 Laboratory Results - last 24 hr 09/14/23 05:20 WBC 2.55 L RBC 3.18 L Hgb 8.2 L Hct 25.5 L MCV 80 MCH 25.8 L MCHC 32.2 RDW 21.7 H Plt Count 21 L* MPV Immature Gran % 0.0 Neutrophils % 45.9 Lymphocytes % 43.5 Monocytes % 7.8 Eosinophils % 2.4 Basophils % 0.4 Nucleated RBC % 0.0 Absolute Neutrophils 1.17 L Absolute Lymphocytes 1.11 L Absolute Monocytes 0.20 Absolute Eosinophils 0.06 Absolute Basophils 0.01 RBC Morphology See Below Anisocytosis 2+ PT 14.7 H INR 1.5 H Sodium 137 Potassium 3.9 Chloride 105 Carbon Dioxide 27.5 Anion Gap 4.5 BUN 2 L Creatinine 0.6 Est GFR (CKD-EPI 2020) 122.99 Glucose 85 Calcium 8.4 L Phosphorus 3.0 Magnesium 1.7 L Total Bilirubin 3.4 H Conjugated Bilirubin 1.4 H AST 92 H ALT 40 Alkaline Phosphatase 73 Ammonia 72 H Total Protein 6.9 Albumin 2.7 L Objective Narrative Objective Narrative: CXR: Bibasilar densities, greater than right, infiltrates versus atelectasis PAWSS Have you Been Recently Intoxicated or Drunk Within the Last 30 days?: Yes Have you Ever Experienced Previous Episodes of Alcohol Withdrawal?: Yes Have you ever Experienced Withdrawal Seizures?: Yes Have you ever Experienced Delirium Tremens(DT)s?: Yes Have you ever undergone Alcohol Rehabilitation Treatment (i.e, inpt ot outpatient treatment programs)?: Yes Have you ever Experienced Blackouts?: Yes Have you ever Combined Alcohol with other Downers within the last 90 days?: No Have you ever Combined Alcohol with any other Substance of Abuse during the last 90 days?: No Positive Blood Alcohol level on Presentation? [PCS.BAL]: Unable to Obtain Evidence of Increased Autonomic Activity (i.e. HR>120, tremor, sweating, agitation, nausea)?: Yes Result: 7 Time Spent with Patient Time Spent with Patient: 35-49 minutes Time was spent: preparing to see the patient(eg.review tests), obtaining and/or reviewing separately otained hiistory, ordering medications,tests, procedures, referring, communicating with other health primary care pediatrician, indepentently interpreting results, counseling the patient and care coordination
[2023-09-14 10:41] LABS: Bilirubin Negative (Negative); Blood Negative (Negative); Clarity Clear (Clear); Glucose Negative (Negative); Ketones Negative (Negative); Leukocyte Esterase Negative (Negative); Nitrite Negative (Negative); Specific Gravity 1.015 (1.005-1.025); pH 7.5 (5-8)
[2023-09-14 11:00] LABS: Lab Add On Test DONE
--- NOTE | 2023-09-14 11:09 | PDOC.CMPRO ---
Date of service: 09/14/23 Time of Service: 11:09 Care Management Progress Note Progress Note Text Progress Note Text: S/O: Careers Counsellor consult initiated, per Randi continues to require ICU level monitoring and treatment for withdrawal. Jenni-Careers Counsellor met with Randi briefly and agreed to continue to follow her. CM continues to follow. A: 33 year old female admitted to [facility] 09/12/23 for alcohol withdrawal seizures, alcoholic cirrhosis P: Randi will be discharged with no new services when medically cleared. She may benefit from NETTE treatment and will be provided with information re: available resources. She will follow up with community providers and plan of care and transport with a friend vs RCT. CM will follow and continue to assess for discharge needs.
[2023-09-14 11:13] LABS: Creatine Kinase 103 U/L (26-192)
[2023-09-14] MEDS: cefTRIAXone 2 GM/50 ML BAG IVPB (12:07)
[2023-09-14] MEDS: Normal Saline Flush 10 ML SYR IVP (12:19)
[2023-09-14 13:01] LABS: Source Nasal/Nares
[2023-09-14 13:56] LABS: COVID-19 PCR Negative (Negative)
[2023-09-14] MEDS: Acetaminophen 500 MG TAB PO (14:23)
--- NOTE | 2023-09-14 15:24 | PHACLINREV_ITS ---
Pharmacy Admission Review Admission Clinical Review Admission Pharmacy Review: (Updated 09/14/23 @ 10:43 by Beronica Armando MD) Pneumonia (Acute) Alcoholic hepatitis (Acute) Hepatic encephalopathy (Acute) Discharge planning issues (Acute) DVT prophylaxis (Acute) Hypomagnesemia (Acute) Alcohol withdrawal seizure (Acute) clindamycin Adverse Reaction (Intermediate, Unverified 09/12/23 10:47) Nausea Resuscitation Status Full Code Height 5 ft 4 in Weight 74.4 kg Comments Comments/Follow Ups: Watch VS, K+, mag, platelets, labs, for culture results and for med changes (possible hepatic dosage adjustments) Pharmacy Admission Review Renal Dosing Renal Dosing: BUN 2 mg/dL (7-18) L 09/14/23 05:20 Creatinine 0.6 mg/dL (0.55-1.02) 09/14/23 05:20 Medications needing adjustments: Reviewed (Crcl ~134 mL/min current meds okay) Anticoagulation Anticoagulation: Hgb 8.2 g/dL (11.2-15.7) L 09/14/23 05:20 Hct 25.5 % (36.0-46.0) L 09/14/23 05:20 Plt Count 21 10^3/uL (130-400) L* 09/14/23 05:20 INR 1.5 (0.9-1.1) H 09/14/23 05:20 Creatinine 0.6 mg/dL (0.55-1.02) 09/14/23 05:20 DVT Prophylaxis: Reviewed (TEDS) Therapeutic Anticoagulation: N/A Opiate Usage Evaluate Pain Scale/Pains Meds: Reviewed Scheduled Bowel Reg ordered if on Opiates?: No (Has PRN med ordered) Relevant Labs Relevant Labs: Sodium 137 mmol/L (136-145) 09/14/23 05:20 Potassium 3.9 mmol/L (3.5-5.1) 09/14/23 05:20 Chloride 105 mmol/L (98-107) 09/14/23 05:20 Phosphorus 3.0 mg/dL (2.6-4.7) 09/14/23 05:20 Magnesium 1.7 mg/dL (1.8-2.4) L 09/14/23 05:20 Electrolytes, C-Reactive P, ESR: Reviewed (potassium improved since yesterday, IV and PO mag ordered) DM Control DM Control: N/A Cardiac Review BP, HR, EF%: Reviewed QTc Review QTc: N/A IV to PO Switch IV Medications: Reviewed Home Meds Home Med List reviewed: Intervened (methadone dose verified with [facility] in [facility].) Relevent Home Meds Not ordered & why?: home med are currently all ordered Current Meds Current Medication Order Review: Intervened (discontinued duplicate med orders) Pharmacy Antibiotic Review Pharmacy Antibiotic Activity: C/S review and Reviewed, no change Comments: Doxy and ceftriaxone started to cover pneumonia. Blood and urine cultures pending Comments Comments/Follow Ups: Watch VS, K+, mag, platelets, labs, for culture results and for med changes (possible hepatic dosage adjustments)
--- NOTE | 2023-09-14 16:22 | PCNE_ITS ---
Date of service: 09/14/23 Time of Service: 15:30 History of Present Illness Narrative: Mrs. Hall is a 33 y/o F currently in ICU at [facility] 2/2 alcohol withdrawal, on CIWA protocol; PMHx sig for AUD w/cirrhosis w/varices (h/o banding x1 year), thrombocytopenia, encephalopathy (on lactulose), OUD (on methadone) Hospital course: presented to [facility] ED on 09/12/23 in alcohol withdrawal; reports had a few seizures at home, ongoing in the emergency room, started on CIWA protocol, admitted to ICU. On clear liquid diet due to increased intubation risk due to respiratory depression, worsening labs and imaging found pneumonia, started on doxycycline and ceftriaxone. nutritional health coach visiting daily. Ammonia levels increased, will increase lactulose. Required 6 mg of lorazepam in the previous 6 hours, so far withdrawal symptoms controlled Isabel is hoping to actively engage in her recovery. She is meeting w/a recovery auditor daily and is aware that referrals have been placed for rehab, she is hoping for the [facility], has previously attended [facility] and does not want to return. She would like to remain in hospital through her detox Isabel currently does not have a home, her Robbie has been staying w/his family, where she is not welcome. She is normal unsure where she will go if she is discharged w/o a rehab to attend. He has been able to visit and call. Isabel states she may have an AD on file w/[place] primary, may have previously completed it. She would want her and ex-step mom Sharmaine as HCA; She is aware that her respiratory status may be depressed r/t CIWA protocol and would want intubation as needed She is aware that she is at an elevated bleeding risk bc of her liver disease, she would want blood products as indicated and would want CPR if her heart were to stop; however, if her bleeding is uncontrolled and she continues to require ongoing blood transfusions, she is concerned about blood supplies and would not want to take this from someone else. Assessment and Plan Assessment and plan (1) Alcohol withdrawal seizure: Status: Acute Assessment and plan: continue CIWA protocol she would want intubation is respiratory depression requires it (2) Pneumonia: Status: Acute Assessment and plan: blood cultures pending continue doxycycline and ceftriaxone (3) Alcoholic cirrhosis: Status: Chronic Assessment and plan: Maddrey score worsening, continue to monitor; thrombocytopenia, coaglopathy, encephalopathy, h/o banding varices - at high risk for variceal bleed/catastrophic bleeding consider referral to liver specialist outpatient (4) Hepatic encephalopathy: Status: Acute Assessment and plan: increased lactulose today (5) Discharge planning issues: Status: Acute Assessment and plan: rehab referrals placed does not currently have a safe place to stay pending rehab (6) Alcohol use disorder: Status: Acute Assessment and plan: in alcohol withdrawal rehab referrals placed, [facility] (7) Substance use disorder: Status: Acute Assessment and plan: on methodone did not discuss (8) Homelessness: Status: Acute (9) Advance care planning: Status: Acute Assessment and plan: reviewed intubation and CPR - would want both to be attempted; she did raise some concerns over wasting resources like blood if she requires ongoing transfusions r/t increase bleed risk, however would want all LST attempted at this time, including CPR - reviewed current plan, HCA (completed form) identified as Silvestre and exstep mom Sharmaine, of note she did list two people she would not want consulted spent 18 mins w/ACP (10) Palliative care encounter: Status: Acute Assessment and plan: PC will continue to follow, f/u this week Review of Systems Narrative: as per HPI PFSH All Active Problems (Updated 09/14/23 @ 16:49 by Eve Winn NP) Palliative care encounter (Acute) Homelessness (Acute) Substance use disorder (Acute) Alcohol use disorder (Acute) Advance care planning (Acute) Pneumonia (Acute) Alcoholic hepatitis (Acute) Hepatic encephalopathy (Acute) Discharge planning issues (Acute) DVT prophylaxis (Acute) Hypomagnesemia (Acute) Coagulopathy (Chronic) Alcohol abuse (Chronic) Alcohol withdrawal seizure (Acute) Pancytopenia (Chronic) Abnormal gall bladder diagnostic imaging (Acute) Alcoholic (Chronic) Alcoholic cirrhosis (Chronic) Social History Smoking/Tobacco Use Status: Current every day Tobacco Type: cigarettes Smoking risk assessment performed?: Yes Alcohol Intake: current Alcohol Intake frequency: 3 or more drinks per day Alcohol type: hard liquor Drug use: Binges Substance use type: does not use and former substance user Details: on methadone 80mg for opiate addiction, drinks a fifth of vodka daily when drinking Housing: apartment Do you feel safe at home: Yes Do you feel safe in your relationship?: Yes Exam Narrative Exam Narrative: General: cooperative; sitting upright in ICU bed; intermittently closes eyes HEENT: dried lips, hearing grossly WNL, normocephalic, atraumatic Resp: even and unlabored, only speaks limited sentences w/no change in resp status; no acute resp distress Skin: scattered excoriations throughout body, bandaid on R cheek placed after picked scab w/light bleeding; no signs of infection Neuro: awake and alert, oriented to place and person Psych: cooperative, closes eyes but remains responsive, slightly delayed at times, answers questions appropriate; affect blunted; thought process normal, impoverished; judgment/insight limited Results Last Vital Signs Temp 99.3 F 09/14/23 12:30 Pulse 87 09/14/23 13:01 Resp 8 L 09/14/23 13:01 BP 105/81 09/14/23 13:01 Pulse Ox 97 09/14/23 13:04 Labs 09/14/23 05:20 09/14/23 05:20 Labs: Laboratory Results - last 24 hr 09/14/23 09/14/23 09/14/23 05:20 08:30 10:10 WBC 2.55 L RBC 3.18 L Hgb 8.2 L Hct 25.5 L MCV 80 MCH 25.8 L MCHC 32.2 RDW 21.7 H Plt Count 21 L* MPV Immature Gran % 0.0 Neutrophils % 45.9 Lymphocytes % 43.5 Monocytes % 7.8 Eosinophils % 2.4 Basophils % 0.4 Nucleated RBC % 0.0 Absolute Neutrophils 1.17 L Absolute Lymphocytes 1.11 L Absolute Monocytes 0.20 Absolute Eosinophils 0.06 Absolute Basophils 0.01 RBC Morphology See Below Anisocytosis 2+ PT 14.7 H INR 1.5 H Sodium 137 Potassium 3.9 Chloride 105 Carbon Dioxide 27.5 Anion Gap 4.5 BUN 2 L Creatinine 0.6 Est GFR (CKD-EPI 2020) 122.99 Glucose 85 Calcium 8.4 L Phosphorus 3.0 Magnesium 1.7 L Total Bilirubin 3.4 H Conjugated Bilirubin 1.4 H AST 92 H ALT 40 Alkaline Phosphatase 73 Ammonia 72 H Creatine Kinase 103 Total Protein 6.9 Albumin 2.7 L Urine Color Dark Yellow Urine Clarity Clear Urine pH 7.5 Ur Specific [place] 1.015 Urine Protein Negative Urine Ketones Negative Urine Blood Negative Urine Nitrite Negative Urine Bilirubin Negative Urine Urobilinogen 4.0 H Ur Leukocyte Esterase Negative Urine Glucose Negative COVID-19 Source Nasal/Nares SARS-CoV-2 (PCR) Negative Add-On Test Request DONE
[2023-09-14] MEDS: Mirtazapine 15 MG TAB 30 MG PO (20:25)
[2023-09-15] VITALS (44 sets, daily range): BP systolic 93–121; BP diastolic 58–90; PULSE 81–98; RESP 8–25; TEMP 36.9–37.2; O2SAT 88–96
[2023-09-15] MEDS: LORazepam 1 MG TAB PO/SL ×5 (00:16→19:56)
[2023-09-15] MEDS: LORazepam 2 MG/ML VIAL IVP ×2 (04:51→23:15)
[2023-09-15 07:26] LABS: Absolute Basophil Count 0.01 10^3/uL (0.0-0.2); Absolute Eosinophil Count 0.06 10^3/uL (0.0-0.7); Absolute Lymphocyte Count 0.96 10^3/uL (1.2-3.4); Absolute Neutrophil Count 0.98 10^3/uL (1.2-6.7); Basophils % 0.5; Eosinophils % 2.7; HCT 25.8 % (36.0-46.0); HGB 8.1 g/dL (11.2-15.7); Lymphocytes % 43.4; MCH 25.4 pg (27.0-33.0); MCHC 31.4 % (32.0-36.0); MCV 81 fL (80-95); Neutrophils % 44.4; RBC 3.19 10^6/uL (3.93-5.22); RDW 21.8 % (11.7-14.6); RDW-SD 64.6 fL; WBC 2.21 10^3/uL (4.4-10.8)
[2023-09-15 07:45] LABS: Anisocytosis 2+; Diff Comment Diff Reviewed; Hypochromasia 1+; Platelet Count 22 10^3/uL (130-400)
[2023-09-15] MEDS: Methadone Liquid 10 MG/ML 80 MG PO (07:57)
[2023-09-15 08:02] LABS: Anion Gap 6.2 mmol/L (3-11); BUN 2 mg/dL (7-18); CO2 25.8 mmol/L (21.0-32.0); CREATININE 0.6 mg/dL (0.55-1.02); Calcium 8.6 mg/dL (8.5-10.1); Chloride 106 mmol/L (98-107); Estimated GFR 122.99 (mL/min/1.73m2); Glucose 80 mg/dL (74-106); Magnesium 1.6 mg/dL (1.8-2.4); Potassium 3.9 mmol/L (3.5-5.1); Sodium 138 mmol/L (136-145)
--- NOTE | 2023-09-15 08:05 | CMPROGNOTE_ITS ---
Date of service: 09/15/23 Time of Service: 08:06 Care Management Progress Note Progress Note Text Progress Note Text: Randi will be discharged with no new services when medically cleared. She met with the recovery specialist, Jenin who will continue to follow, as well as Palliative Care who supported Randi in completing a health care agent form. Randi will follow up with community providers and plan of care and transport with a friend vs RCT. CM will follow and continue to assess for discharge needs.
[2023-09-15] MEDS: Lactulose 20 GM/30 ML CUP PO ×3 (08:47→19:54)
[2023-09-15] MEDS: Magnesium Chloride 64 MG TABCR PO ×2 (08:47→19:54)
[2023-09-15] MEDS: Multivitamin TAB 1 TAB PO (08:48)
[2023-09-15] MEDS: Folic Acid 1 MG TAB PO (08:48)
[2023-09-15] MEDS: Pantoprazole 40 MG TABCR PO (08:48)
[2023-09-15] MEDS: Thiamine 100 MG TAB PO (08:48)
[2023-09-15] MEDS: DOXYCYCLINE 100 MG in Normal Saline 100 ML IVPB ×2 (08:49→19:53)
[2023-09-15] MEDS: Acetaminophen 500 MG TAB PO (09:43)
[2023-09-15] MEDS: MAGNESIUM SULFATE 2 GM/50 ML BAG IVPB (09:43)
[2023-09-15] MEDS: Ondansetron 4 MG/2 ML VIAL IVP (11:03)
[2023-09-15] MEDS: cefTRIAXone 2 GM/50 ML BAG IVPB (12:29)
[2023-09-15 13:34] LABS: COVID-19 PCR Negative (Negative); Influenza A PCR Negative (Negative); Influenza B PCR Negative (Negative); RSV PCR Negative (Negative)
[2023-09-15 13:41] LABS: Source Nasopharynx
[2023-09-15] MEDS: Gabapentin 100 MG CAP PO ×2 (15:37→19:53)
--- NOTE | 2023-09-15 18:21 | PGE_ITS ---
Date of Service Date of service: 09/15/23 Time of Service: 09:30 Assessment and Plan Assessment and plan (1) Alcohol withdrawal seizure: Status: Acute Assessment and plan: Continue monitoring on the ICU on CIWA with benzodiazepine protocol. Continue clear liquid diet as I feel the patient is still at risk of intubation for respiratory depression. Not a candidate for phenobarbital since she is on methadone therapy (I am awaiting an answer from pharmacy what the concern is and if there is a safe way to administer phenobarbital therapy) Supplement thiamine, MVI; B12/folate are adequate. (2) Pneumonia: Status: Acute Assessment and plan: Blood cultures w/NGTD. Continue doxycycline/ceftriaxone. negative for COVID-19. I added prn albuterol. (3) Alcoholic hepatitis: Status: Acute Assessment and plan: Continue to monitor PT and bili's for trending Maddrey's discriminant function score. Monitor PTT, LFTs. (4) Alcohol abuse: Status: Chronic Assessment and plan: As above The patient was reported to the ER provider that she was interested in going to rehab. We will provide information on resources in the community. (5) Pancytopenia: Status: Chronic Assessment and plan: COVID-19 PCR is negative. Acute on chronic. Monitor for bleeding and infection. Thrombocytopenia could be contributing to the scant hemoptysis on presentation, which has resolved. (6) Hepatic encephalopathy: Status: Acute Assessment and plan: Continue home lactulose (7) Alcoholic cirrhosis: Status: Chronic Assessment and plan: With thrombocytopenia and coagulopathy as well as encephalopathy. High risk for varices and catastrophic bleeding. Palliative care consulted. (8) Coagulopathy: Status: Chronic Assessment and plan: In setting of cirrhosis Monitor for bleeding. (9) Hypomagnesemia: Status: Acute Assessment and plan: Replete, recheck in am. (10) DVT prophylaxis: Status: Acute Assessment and plan: TEDs Chemical DVT ppx is contraindicated given thrombocytopenia, coagulopathy, h/o variceal bleeding. (11) Discharge planning issues: Status: Acute Assessment and plan: Full code Keep in ICU. High risk of intubation and catastrophic variceal bleeding. Total Critical Care Time 35 minutes. Subjective Subjective Interval history since last seen: Randi says that her headache and nausea are better today. She still scored high on the CIWA (up to 18) overnight. She was off of O2 and on RA this morning. Denied dizziness, CP. Does feel a little short of breath today. Exam Narrative Exam Narrative: General: A somnolent, but more alert than yesterday tremulous female on RA, A&Ox3 when awake Cooperative, following commands, answering questions appropriately. HEENT: EOMI, MMM, not actively bleeding facial abrasions Cardiovascular: RRR, no m/r/g Lungs: faint expiratory wheezing Gastrointestinal: soft, nontender, nondistended Extremities: no edema BLEs, no c/c, 2+ pedal pulses B Objective Last Vital Signs Temp 37.2 C 09/15/23 15:30 Pulse 88 09/15/23 16:01 Resp 10 L 09/15/23 16:01 BP 103/70 09/15/23 16:01 Pulse Ox 94 09/15/23 16:01 Laboratory Results - last 24 hr 09/15/23 09/15/23 06:16 12:34 WBC 2.21 L RBC 3.19 L Hgb 8.1 L Hct 25.8 L MCV 81 MCH 25.4 L MCHC 31.4 L RDW 21.8 H Plt Count 22 L* MPV Immature Gran % 0.0 Neutrophils % 44.4 Lymphocytes % 43.4 Monocytes % 9.0 Eosinophils % 2.7 Basophils % 0.5 Nucleated RBC % 0.0 Absolute Neutrophils 0.98 L Absolute Lymphocytes 0.96 L Absolute Monocytes 0.20 Absolute Eosinophils 0.06 Absolute Basophils 0.01 RBC Morphology See Below Hypochromasia 1+ Anisocytosis 2+ Sodium 138 Potassium 3.9 Chloride 106 Carbon Dioxide 25.8 Anion Gap 6.2 BUN 2 L Creatinine 0.6 Est GFR (CKD-EPI 2020) 122.99 Glucose 80 Calcium 8.6 Magnesium 1.6 L COVID-19 Source Nasopharynx SARS-CoV-2 (PCR) Negative Influenza Type A (PCR) Negative Influenza Type B (PCR) Negative RSV (PCR) Negative Path Cons Comment SEE COMMENT PAWSS Have you Been Recently Intoxicated or Drunk Within the Last 30 days?: Yes Have you Ever Experienced Previous Episodes of Alcohol Withdrawal?: Yes Have you ever Experienced Withdrawal Seizures?: Yes Have you ever Experienced Delirium Tremens(DT)s?: Yes Have you ever undergone Alcohol Rehabilitation Treatment (i.e, inpt ot outpatient treatment programs)?: Yes Have you ever Experienced Blackouts?: Yes Have you ever Combined Alcohol with other Downers within the last 90 days?: No Have you ever Combined Alcohol with any other Substance of Abuse during the last 90 days?: No Positive Blood Alcohol level on Presentation? [PCS.BAL]: Unable to Obtain Evidence of Increased Autonomic Activity (i.e. HR>120, tremor, sweating, agitation, nausea)?: Yes Result: 7 Multi-Disciplinary Checklist Lines/Tubes CENTRAL LINE: no ARTERIAL LINE: no LAZO: no ENDOTRACHEAL TUBE: no ICU Maintenance GLUCOSE 140-180mg/dL: yes NUTRITION AT GOAL: no, Reason/Intervention: Clear liquids - nauseated and a high intubation risk PRESSURE ULCER: no RESTRAINTS: no ANTIBIOTICS(if yes, consider Stewardship): Yes Social Issues FAMILY UPDATED: no, Reason/Intervention: I have not seen or heard from any family re this patient PT/OT: no, Reason/Intervention: patient is ambulatory GOALS/DISPOSITION/SAP BI DEVELOPER: yes CODE STATUS: Full Prophylaxis DVT PROPHYLAXIS: yes GI PROPHYLAXIS: yes, Indication: has varices, h/o GI bleeding Time Spent with Patient Time Spent with Patient: 35-49 minutes Time was spent: preparing to see the patient(eg.review tests), obtaining and/or reviewing separately otained hiistory, ordering medications,tests, procedures, referring, communicating with other health patient care specialist, indepentently interpreting results, counseling the patient and care coordination
[2023-09-15] MEDS: Mirtazapine 15 MG TAB 30 MG PO (22:29)
[2023-09-15] MEDS: Normal Saline Flush 10 ML SYR IVP (23:20)
[2023-09-16] VITALS (47 sets, daily range): BP systolic 96–138; BP diastolic 63–91; PULSE 85–108; RESP 9–23; TEMP 36.7–37.3; O2SAT 88–95
[2023-09-16] MEDS: diphenhydrAMINE 25 MG CAP PO (03:22)
[2023-09-16] MEDS: LORazepam 2 MG/ML VIAL IVP (05:03)
[2023-09-16 06:08] LABS: Abs Immature Grans 0.01 10^3/uL (0.0-0.06); Absolute Basophil Count 0.02 10^3/uL (0.0-0.2); Absolute Eosinophil Count 0.07 10^3/uL (0.0-0.7); Absolute Lymphocyte Count 0.98 10^3/uL (1.2-3.4); Absolute Monocyte Count 0.26 10^3/uL (0.1-0.8); Basophils % 0.7; Eosinophils % 2.4; HCT 27.2 % (36.0-46.0); HGB 8.7 g/dL (11.2-15.7); Immature Grans % 0.3; Lymphocytes % 33.3; MCH 25.5 pg (27.0-33.0); MCV 80 fL (80-95); Monocytes % 8.8; Neutrophils % 54.5; RBC 3.41 10^6/uL (3.93-5.22); RDW 22.5 % (11.7-14.6); RDW-SD 63.5 fL; WBC 2.94 10^3/uL (4.4-10.8)
[2023-09-16 06:23] LABS: INR 1.6 (0.9-1.1); Prothrombin Time 15.2 sec (9.1-11.1)
[2023-09-16 06:49] LABS: ALT 37 U/L (14-59); AST 79 U/L (15-37); Albumin 2.8 g/dL (3.4-5.0); Alkaline Phosphatase 77 U/L (46-116); Anion Gap 9.1 mmol/L (3-11); BUN 2 mg/dL (7-18); Bilirubin, Direct 1.5 mg/dL (0.0-0.2); Bilirubin, Total 2.7 mg/dL (0.2-1.0); CO2 25.9 mmol/L (21.0-32.0); CREATININE 0.6 mg/dL (0.55-1.02); Calcium 8.9 mg/dL (8.5-10.1); Chloride 103 mmol/L (98-107); Estimated GFR 122.99 (mL/min/1.73m2); Glucose 81 mg/dL (74-106); Magnesium 1.4 mg/dL (1.8-2.4); Potassium 3.6 mmol/L (3.5-5.1); Sodium 138 mmol/L (136-145); Total Protein 7.5 g/dL (6.4-8.2)
[2023-09-16 07:00] LABS: Diff Comment Diff Reviewed; Platelet Count 30 10^3/uL (130-400); RBC Morphology Normal
[2023-09-16] MEDS: Lactulose 20 GM/30 ML CUP PO ×2 (07:50→13:13)
[2023-09-16] MEDS: LORazepam 1 MG TAB PO/SL ×3 (07:50→23:38)
[2023-09-16] MEDS: Multivitamin TAB 1 TAB PO (07:51)
[2023-09-16] MEDS: Magnesium Chloride 64 MG TABCR 128 MG PO ×2 (07:51→20:57)
[2023-09-16] MEDS: Pantoprazole 40 MG TABCR PO (07:51)
[2023-09-16] MEDS: Thiamine 100 MG TAB PO (07:51)
[2023-09-16] MEDS: Gabapentin 100 MG CAP PO ×3 (07:51→20:58)
[2023-09-16] MEDS: MAGNESIUM SULFATE 4 GM/100 ML BAG IVPB (07:52)
[2023-09-16] MEDS: Methadone Liquid 10 MG/ML 80 MG PO (07:52)
[2023-09-16] MEDS: Folic Acid 1 MG TAB PO (07:52)
[2023-09-16] MEDS: DOXYCYCLINE 100 MG in Normal Saline 100 ML IVPB ×2 (08:15→20:56)
[2023-09-16] MEDS: Normal Saline Flush 10 ML SYR IVP ×2 (08:15→23:39)
--- NOTE | 2023-09-16 09:40 | W.PM.PROGNOT ---
Date of Service Date of service: 09/16/23 Time of Service: 09:40 Assessment and Plan Assessment and plan (1) Alcohol withdrawal seizure: Status: Acute Assessment and plan: Continue monitoring in the ICU on CIWA with benzodiazepine protocol. Attempt to advance diet. Clarified with pharmacy: phenobarbital is not an absolute contraindication, so it could be tried in the future or if things do not go well on lorazepam on this admission, but would need to be administered in small doses. Supplement thiamine, MVI; B12/folate are adequate. (2) Pneumonia: Status: Acute Assessment and plan: Blood cultures w/NGTD. Continue doxycycline/ceftriaxone. negative for COVID-19. Continue prn albuterol. (3) Alcoholic hepatitis: Status: Acute Assessment and plan: Continue to monitor PT and bili's for trending Maddrey's discriminant function score. Today's score is 22, indicating good prognosis. Monitor PTT, LFTs. (4) Alcohol abuse: Status: Chronic Assessment and plan: As above The patient was reported to the ER provider that she was interested in going to rehab. We will provide information on resources in the community. (5) Pancytopenia: Status: Chronic Assessment and plan: COVID-19 PCR is negative. Acute on chronic. Monitor for bleeding and infection. Platelet count is actually improving - 30 today. Continue to monitor. (6) Hepatic encephalopathy: Status: Acute Assessment and plan: Continue home lactulose (7) Alcoholic cirrhosis: Status: Chronic Assessment and plan: With thrombocytopenia and coagulopathy as well as encephalopathy. High risk for varices and catastrophic bleeding. Palliative care consulted. (8) Coagulopathy: Status: Chronic Assessment and plan: In setting of cirrhosis Monitor for bleeding. (9) Hypomagnesemia: Status: Acute Assessment and plan: Replete, recheck in am. (10) DVT prophylaxis: Status: Acute Assessment and plan: TEDs Chemical DVT ppx is contraindicated given thrombocytopenia, coagulopathy, h/o variceal bleeding. (11) Discharge planning issues: Status: Acute Assessment and plan: Full code Keep in ICU. High risk of intubation and catastrophic variceal bleeding. Total Critical Care Time 35 minutes. Subjective Subjective Interval history since last seen: Ms Sarah states she has a headache, pain all over, nausea. She is still having visual hallucinations (mostly shadows) and auditory hallucinations. Denies dizziness, CP, SOB. Vomited yesterday. States her liver is hurting. She has recently received her methadone and is about to receive zofran. Exam Narrative Exam Narrative: General: A somnolent female who is asleep sitting up, A&Ox3, follows commands, looks less tremulous to me today HEENT: EOMI, MMM, not actively bleeding facial abrasions Cardiovascular: RRR, no m/r/g Lungs: faint crackles at B bases Gastrointestinal: soft, nontender, nondistended Extremities: no edema BLEs, no c/c, 2+ pedal pulses B Objective Last Vital Signs Temp 37.1 C 09/16/23 06:17 Pulse 97 H 09/16/23 06:17 Resp 14 09/16/23 06:01 BP 109/73 09/16/23 06:17 Pulse Ox 93 09/16/23 06:17 Laboratory Results - last 24 hr 09/15/23 09/15/23 09/16/23 06:16 12:34 05:20 WBC 2.94 L RBC 3.41 L Hgb 8.7 L Hct 27.2 L MCV 80 MCH 25.5 L MCHC 32.0 RDW 22.5 H Plt Count 30 L MPV Immature Gran % 0.3 Neutrophils % 54.5 Lymphocytes % 33.3 Monocytes % 8.8 Eosinophils % 2.4 Basophils % 0.7 Nucleated RBC % 0.0 Absolute Neutrophils 1.60 Absolute Lymphocytes 0.98 L Absolute Monocytes 0.26 Absolute Eosinophils 0.07 Absolute Basophils 0.02 RBC Morphology Normal PT 15.2 H INR 1.6 H Sodium 138 Potassium 3.6 Chloride 103 Carbon Dioxide 25.9 Anion Gap 9.1 BUN 2 L Creatinine 0.6 Est GFR (CKD-EPI 2020) 122.99 Glucose 81 Calcium 8.9 Magnesium 1.4 L Total Bilirubin 2.7 H Conjugated Bilirubin AST ALT Alkaline Phosphatase Total Protein Albumin COVID-19 Source Nasopharynx SARS-CoV-2 (PCR) Negative Influenza Type A (PCR) Negative Influenza Type B (PCR) Negative RSV (PCR) Negative Path Cons Comment SEE COMMENT 09/16/23 09/16/23 09/16/23 05:20 05:20 05:20 WBC RBC Hgb Hct MCV MCH MCHC RDW Plt Count MPV Immature Gran % Neutrophils % Lymphocytes % Monocytes % Eosinophils % Basophils % Nucleated RBC % Absolute Neutrophils Absolute Lymphocytes Absolute Monocytes Absolute Eosinophils Absolute Basophils RBC Morphology PT INR Sodium Potassium Chloride Carbon Dioxide Anion Gap BUN Creatinine Est GFR (CKD-EPI 2020) Glucose Calcium Magnesium Total Bilirubin Cancelled Conjugated Bilirubin 1.5 H Cancelled AST 79 H Cancelled ALT 37 Alkaline Phosphatase Total Protein Albumin COVID-19 Source SARS-CoV-2 (PCR) Influenza Type A (PCR) Influenza Type B (PCR) RSV (PCR) Path Cons Comment 09/16/23 09/16/23 09/16/23 05:20 05:20 05:20 WBC RBC Hgb Hct MCV MCH MCHC RDW Plt Count MPV Immature Gran % Neutrophils % Lymphocytes % Monocytes % Eosinophils % Basophils % Nucleated RBC % Absolute Neutrophils Absolute Lymphocytes Absolute Monocytes Absolute Eosinophils Absolute Basophils RBC Morphology PT INR Sodium Potassium Chloride Carbon Dioxide Anion Gap BUN Creatinine Est GFR (CKD-EPI 2020) Glucose Calcium Magnesium Total Bilirubin Conjugated Bilirubin AST ALT Cancelled Alkaline Phosphatase 77 Cancelled Total Protein 7.5 Cancelled Albumin 2.8 L COVID-19 Source SARS-CoV-2 (PCR) Influenza Type A (PCR) Influenza Type B (PCR) RSV (PCR) Path Cons Comment 09/16/23 05:20 WBC RBC Hgb Hct MCV MCH MCHC RDW Plt Count MPV Immature Gran % Neutrophils % Lymphocytes % Monocytes % Eosinophils % Basophils % Nucleated RBC % Absolute Neutrophils Absolute Lymphocytes Absolute Monocytes Absolute Eosinophils Absolute Basophils RBC Morphology PT INR Sodium Potassium Chloride Carbon Dioxide Anion Gap BUN Creatinine Est GFR (CKD-EPI 2020) Glucose Calcium Magnesium Total Bilirubin Conjugated Bilirubin AST ALT Alkaline Phosphatase Total Protein Albumin Cancelled COVID-19 Source SARS-CoV-2 (PCR) Influenza Type A (PCR) Influenza Type B (PCR) RSV (PCR) Path Cons Comment PAWSS Have you Been Recently Intoxicated or Drunk Within the Last 30 days?: Yes Have you Ever Experienced Previous Episodes of Alcohol Withdrawal?: Yes Have you ever Experienced Withdrawal Seizures?: Yes Have you ever Experienced Delirium Tremens(DT)s?: Yes Have you ever undergone Alcohol Rehabilitation Treatment (i.e, inpt ot outpatient treatment programs)?: Yes Have you ever Experienced Blackouts?: Yes Have you ever Combined Alcohol with other Downers within the last 90 days?: No Have you ever Combined Alcohol with any other Substance of Abuse during the last 90 days?: No Positive Blood Alcohol level on Presentation? [PCS.BAL]: Unable to Obtain Evidence of Increased Autonomic Activity (i.e. HR>120, tremor, sweating, agitation, nausea)?: Yes Result: 7 Multi-Disciplinary Checklist Lines/Tubes CENTRAL LINE: no ARTERIAL LINE: no LAZO: no ENDOTRACHEAL TUBE: no ICU Maintenance GLUCOSE 140-180mg/dL: yes NUTRITION AT GOAL: yes PRESSURE ULCER: no RESTRAINTS: no ANTIBIOTICS(if yes, consider Stewardship): Yes Social Issues FAMILY UPDATED: no, Reason/Intervention: no family at bedside to update PT/OT: no, Reason/Intervention: ambulatory GOALS/DISPOSITION/BIOMEDICAL ENGINEERING DIRECTOR: yes CODE STATUS: Full Prophylaxis DVT PROPHYLAXIS: yes GI PROPHYLAXIS: yes, Indication: h/o varices Time Spent with Patient Time Spent with Patient: 35-49 minutes Time was spent: preparing to see the patient(eg.review tests), obtaining and/or reviewing separately otained hiistory, ordering medications,tests, procedures, referring, communicating with other health child care center administrator, indepentently interpreting results, counseling the patient and care coordination
--- NOTE | 2023-09-16 11:42 | PDOC.CMPRO ---
Date of service: 09/16/23 Time of Service: 11:42 Care Management Progress Note Progress Note Text Progress Note Text: S/O: Randi was sitting up in bed when CM met with her. She stated that she is very tired, and had difficulty keeping her eyes open during the conversation. She expressed concern about being homeless upon discharge. CM discussed [address] with Randi, which she will have to call on the day of her discharge to coordinate emergency housing; she stated that she is familiar with [address]. She also stated that she receives support from [facility]. Per report, she remains at ICU level of care, although she is improving. CM will continue to follow. A: Randi is a 33 year old female admitted to [facility] on 09/12/23 for alcohol withdrawal seizures, alcoholic cirrhosis. P: Randi will be discharged with no new services when medically cleared. She met with the volleyball assistant coach, Jenni who will continue to follow, as well as Palliative Care who supported Randi in completing a health care agent form. Randi will follow up with community providers and plan of care and transport with a friend vs RCT. CM will follow and continue to assess for discharge needs.
[2023-09-16] MEDS: cefTRIAXone 2 GM/50 ML BAG IVPB (13:13)
[2023-09-16 16:04] LABS: Ammonia 49 umol/L (11-32)
[2023-09-16] MEDS: Lactulose 20 GM/30 ML CUP 40 GM PO (20:57)
[2023-09-16] MEDS: Docusate Sodium 100 MG CAP PO (20:58)
[2023-09-16] MEDS: Acetaminophen 500 MG TAB PO (20:59)
[2023-09-16] MEDS: Mirtazapine 15 MG TAB 30 MG PO (21:03)
[2023-09-17] VITALS (31 sets, daily range): BP systolic 93–121; BP diastolic 53–85; PULSE 80–101; RESP 10–30; TEMP 36.9–37.6; O2SAT 89–96
[2023-09-17] MEDS: Acetaminophen 500 MG TAB PO (04:12)
[2023-09-17] MEDS: LORazepam 1 MG TAB PO/SL (04:14)
[2023-09-17] MEDS: Normal Saline Flush 10 ML SYR IVP ×3 (05:32→22:22)
[2023-09-17 07:03] LABS: Absolute Basophil Count 0.01 10^3/uL (0.0-0.2); Absolute Eosinophil Count 0.09 10^3/uL (0.0-0.7); Absolute Lymphocyte Count 1.34 10^3/uL (1.2-3.4); Absolute Monocyte Count 0.27 10^3/uL (0.1-0.8); Absolute Neutrophil Count 1.19 10^3/uL (1.2-6.7); Basophils % 0.3; Eosinophils % 3.1; HCT 26.2 % (36.0-46.0); HGB 8.3 g/dL (11.2-15.7); Lymphocytes % 46.2; MCH 25.3 pg (27.0-33.0); MCHC 31.7 % (32.0-36.0); MCV 80 fL (80-95); Monocytes % 9.3; Neutrophils % 41.1; RBC 3.28 10^6/uL (3.93-5.22); RDW 22.8 % (11.7-14.6); RDW-SD 65.1 fL
[2023-09-17 07:14] LABS: INR 1.6 (0.9-1.1); Prothrombin Time 15.7 sec (9.1-11.1)
[2023-09-17 07:22] LABS: ALT 36 U/L (14-59); AST 73 U/L (15-37); Albumin 2.6 g/dL (3.4-5.0); Alkaline Phosphatase 75 U/L (46-116); BUN 3 mg/dL (7-18); Bilirubin, Direct 1.2 mg/dL (0.0-0.2); Bilirubin, Total 1.8 mg/dL (0.2-1.0); CREATININE 0.7 mg/dL (0.55-1.02); Calcium 8.7 mg/dL (8.5-10.1); Chloride 106 mmol/L (98-107); Estimated GFR 118.51 (mL/min/1.73m2); Glucose 123 mg/dL (74-106); Magnesium 1.5 mg/dL (1.8-2.4); Potassium 3.9 mmol/L (3.5-5.1); Sodium 139 mmol/L (136-145); Total Protein 7.1 g/dL (6.4-8.2)
[2023-09-17] MEDS: Lactulose 20 GM/30 ML CUP 40 GM PO ×3 (07:37→20:49)
[2023-09-17] MEDS: Folic Acid 1 MG TAB PO (07:38)
[2023-09-17] MEDS: Magnesium Chloride 64 MG TABCR 128 MG PO ×2 (07:38→20:45)
[2023-09-17] MEDS: Gabapentin 100 MG CAP PO ×3 (07:38→20:45)
[2023-09-17] MEDS: Pantoprazole 40 MG TABCR PO (07:38)
[2023-09-17] MEDS: Thiamine 100 MG TAB PO (07:38)
[2023-09-17] MEDS: Multivitamin TAB 1 TAB PO (07:39)
[2023-09-17] MEDS: DOXYCYCLINE 100 MG in Normal Saline 100 ML IVPB ×2 (07:40→20:51)
[2023-09-17] MEDS: Methadone Liquid 10 MG/ML 80 MG PO (08:28)
[2023-09-17 08:51] LABS: Anisocytosis 2+; Basophilic Stippling Present; Diff Comment Diff Reviewed; Hypochromasia 2+; Platelet Count 34 10^3/uL (130-400); Polychromasia Present
[2023-09-17 08:52] LABS: Poikilocytes 2+
--- NOTE | 2023-09-17 10:13 | PGE_ITS ---
Date of Service Date of service: 09/17/23 Time of Service: 10:13 Assessment and Plan Assessment and plan (1) Alcohol withdrawal seizure: Status: Acute Assessment and plan: patient reports having alcohol withdrawal seizures but has had none since admission on 09/12. At this point she has had adequate treatment w/ lorazepam and currently becomes somnolent on her current dosing. At this point she should be out of danger period for withdrawal seizures. I will dc her CIWA scoring but continue a prn low dose lorazepam for anxiety. She can be moved out of ICU as she has been hemodynamically stable, does not require iv lorazepam, tolerating PO meds and food and quite frankly she needs to get out of bed to help w/ her complaints of low back pain and to help her recover from pneumonia. I will continue another day or two of antibiotics for her pneumonis (ceftriaxone 2 gm, doxycycline 100 mg q12h, both given IV, now day #4, will complete 5 days and repeat CXR prior to her dc. Patient refused palliative care consult. YULISSA is working on discharge disposition as for her homeless state but YULISSA is not here today d/t . Qualifiers: Complication of substance-induced condition: uncomplicated Qualified Code(s): F10.930 - Alcohol use, unspecified with withdrawal, uncomplicated; R56.9 - Unspecified convulsions (2) Pneumonia: Status: Acute Assessment and plan: Blood cultures w/NGTD. Continue doxycycline/ceftriaxone day #4 of 5 negative for COVID-19. Continue prn albuterol. Qualifiers: Pneumonia type: aspiration pneumonia Laterality: bilateral Lung location: unspecified part of lung Aspiration pneumonia type: due to vomit Qualified Code(s): J69.0 - Pneumonitis due to inhalation of food and vomit (3) Alcoholic hepatitis: Status: Acute Assessment and plan: discriminant score 23 still below the threshold of 30 and therefore does not require systemic corticosteroids Qualifiers: Ascites presence: without ascites Qualified Code(s): K70.10 - Alcoholic hepatitis without ascites (4) Alcohol abuse: Status: Chronic Assessment and plan: Patient needs referral for rehab counselor upon discharge (5) Pancytopenia: Status: Chronic Assessment and plan: COVID-19 PCR is negative. Acute on chronic. Monitor for bleeding and infection. Platelet count is actually improving - 34,000 today. Continue to monitor. (6) Hepatic encephalopathy: Status: Acute Assessment and plan: Continue lactulose (7) Alcoholic cirrhosis: Status: Chronic Assessment and plan: With thrombocytopenia and coagulopathy as well as encephalopathy. High risk for varices and catastrophic bleeding. hx of esophageal banding per patient. She remains on protonix for GI protection, I have added carafate to her regimen given her reports of coughing up blood prior to admission. hemoglobin remains stable at 8.3 gm. Palliative care consulted but patient declined consult (8) Coagulopathy: Status: Chronic Assessment and plan: In setting of cirrhosis Monitor for bleeding. monitor daily INR (9) Hypomagnesemia: Status: Acute Assessment and plan: repeat 1.6 this morning. will give additional iv dose and already on po magnesium supplement. No cardiac arrhythmias. I have dc her telemetry.. (10) DVT prophylaxis: Status: Acute Assessment and plan: TEDs Chemical DVT ppx is contraindicated given thrombocytopenia, coagulopathy, h/o variceal bleeding. (11) Discharge planning issues: Status: Acute Assessment and plan: refered to to provide patient w/ outpatient resources for housing Subjective Subjective Interval history since last seen: No cough or sputum production although patient reports that she had coughed up some bloody sputum on admission. She has been hemodynamically stable and although she knows the appropropriate things to say in order to get her CIWA score higher so she can be medicated w/ lorazepam, overall her CIWA scores have not been high. The highest in the past 24 hours was 18 yesterday evening and 10 at 4 a.m. Most of the time she is scoring a zero. She was somnolent, she was last medicated w/ lorazepam at 5 am w/ 2 mg. She is now 5 days since admission and should be far enough out from withdrawal and should not be at risk for withdrawal seizures. I will stop her CIWA scoring. I will continue lower dose lorazepam for anxiety. She complains of hurting all over. Specifically lower back. Exam Narrative Exam Narrative: Lethargic but does awaken long enough to hold brief conversations, answers are appropriate, not hallucinating Lungs: clear Heart: RRR, soft systolic murmur at apex 1/6 Abdomen: soft, nondistended, nontender to palpation Back: nontender to palpation Legs/feet: no edema or tenderness Objective Last Vital Signs Temp 36.9 C 09/17/23 08:49 Pulse 96 H 09/17/23 08:49 Resp 12 09/17/23 08:49 BP 103/73 09/17/23 08:49 Pulse Ox 91 L 09/17/23 08:49 Laboratory Results - last 24 hr 09/16/23 09/17/23 15:43 05:30 WBC 2.90 L RBC 3.28 L Hgb 8.3 L Hct 26.2 L MCV 80 MCH 25.3 L MCHC 31.7 L RDW 22.8 H Plt Count 34 L MPV Immature Gran % 0.0 Neutrophils % 41.1 Lymphocytes % 46.2 Monocytes % 9.3 Eosinophils % 3.1 Basophils % 0.3 Nucleated RBC % 0.0 Absolute Neutrophils 1.19 L Absolute Lymphocytes 1.34 Absolute Monocytes 0.27 Absolute Eosinophils 0.09 Absolute Basophils 0.01 RBC Morphology See Below Polychromasia Present Hypochromasia 2+ Poikilocytosis 2+ Basophilic Stippling Present Anisocytosis 2+ PT 15.7 H INR 1.6 H Sodium 139 Potassium 3.9 Chloride 106 Carbon Dioxide 27.0 Anion Gap 6.0 BUN 3 L Creatinine 0.7 Est GFR (CKD-EPI 2020) 118.51 Glucose 123 H Calcium 8.7 Magnesium 1.5 L Total Bilirubin 1.8 H Conjugated Bilirubin 1.2 H AST 73 H ALT 36 Alkaline Phosphatase 75 Ammonia 49 H Total Protein 7.1 Albumin 2.6 L PAWSS Have you Been Recently Intoxicated or Drunk Within the Last 30 days?: Yes Have you Ever Experienced Previous Episodes of Alcohol Withdrawal?: Yes Have you ever Experienced Withdrawal Seizures?: Yes Have you ever Experienced Delirium Tremens(DT)s?: Yes Have you ever undergone Alcohol Rehabilitation Treatment (i.e, inpt ot outpat ient treatment programs)?: Yes Have you ever Experienced Blackouts?: Yes Have you ever Combined Alcohol with other Downers within the last 90 days?: No Have you ever Combined Alcohol with any other Substance of Abuse during the last 90 days?: No Positive Blood Alcohol level on Presentation? [PCS.BAL]: Unable to Obtain Evidence of Increased Autonomic Activity (i.e. HR>120, tremor, sweating, agitation, nausea)?: Yes Result: 7 Time Spent with Patient Time Spent with Patient: 35-49 minutes Time was spent: preparing to see the patient(eg.review tests), ordering medic ations,tests, procedures, referring, communicating with other health transition of care specialist, indepentently interpreting results, counseling the patient and care coordination
[2023-09-17] MEDS: Sucralfate 1 GM TAB PO ×3 (11:36→20:48)
[2023-09-17] MEDS: cefTRIAXone 2 GM/50 ML BAG IVPB (11:37)
[2023-09-17] MEDS: MAGNESIUM SULFATE 2 GM/50 ML BAG IVPB (11:42)
[2023-09-17] MEDS: Diclofenac 1% Gel 100 GM TUBE TP (15:48)
[2023-09-17] MEDS: Mirtazapine 15 MG TAB 30 MG PO (20:49)
[2023-09-18] VITALS (7 sets, daily range): BP systolic 90–120; BP diastolic 57–84; PULSE 94–105; RESP 10–18; TEMP 37.5; O2SAT 92–94
[2023-09-18] MEDS: Mylanta Suspension 30 ML CUP PO (00:27)
[2023-09-18 07:02] LABS: Abs Immature Grans 0.01 10^3/uL (0.0-0.06); Absolute Basophil Count 0.01 10^3/uL (0.0-0.2); Absolute Lymphocyte Count 1.23 10^3/uL (1.2-3.4); Absolute Monocyte Count 0.33 10^3/uL (0.1-0.8); Absolute Neutrophil Count 1.41 10^3/uL (1.2-6.7); Basophils % 0.3; Eosinophils % 3.2; HCT 26.4 % (36.0-46.0); HGB 8.4 g/dL (11.2-15.7); Immature Grans % 0.3; Lymphocytes % 39.8; MCH 25.4 pg (27.0-33.0); MCHC 31.8 % (32.0-36.0); MCV 80 fL (80-95); Monocytes % 10.7; Neutrophils % 45.7; RBC 3.31 10^6/uL (3.93-5.22); RDW 22.9 % (11.7-14.6); RDW-SD 66.4 fL; WBC 3.09 10^3/uL (4.4-10.8)
[2023-09-18 07:12] LABS: INR 1.6 (0.9-1.1); Prothrombin Time 15.1 sec (9.1-11.1)
[2023-09-18 07:33] LABS: ALT 33 U/L (14-59); AST 61 U/L (15-37); Albumin 2.6 g/dL (3.4-5.0); Alkaline Phosphatase 73 U/L (46-116); Anion Gap 4.8 mmol/L (3-11); Anisocytosis 2+; BUN 3 mg/dL (7-18); Bilirubin, Total 1.8 mg/dL (0.2-1.0); CO2 27.2 mmol/L (21.0-32.0); CREATININE 0.6 mg/dL (0.55-1.02); Calcium 8.5 mg/dL (8.5-10.1); Chloride 104 mmol/L (98-107); Diff Comment Diff Reviewed; Estimated GFR 122.99 (mL/min/1.73m2); Glucose 98 mg/dL (74-106); Hypochromasia 1+; Magnesium 1.5 mg/dL (1.8-2.4); Platelet Count 37 10^3/uL (130-400); Potassium 3.6 mmol/L (3.5-5.1); Sodium 136 mmol/L (136-145); Total Protein 7.2 g/dL (6.4-8.2)
[2023-09-18] MEDS: Thiamine 100 MG TAB PO (07:51)
[2023-09-18] MEDS: Magnesium Chloride 64 MG TABCR 128 MG PO (07:51)
[2023-09-18] MEDS: Folic Acid 1 MG TAB PO (07:52)
[2023-09-18] MEDS: Sucralfate 1 GM TAB PO ×3 (07:52→16:39)
[2023-09-18] MEDS: Multivitamin TAB 1 TAB PO (07:52)
[2023-09-18] MEDS: Gabapentin 100 MG CAP PO ×2 (07:52→13:53)
[2023-09-18] MEDS: Pantoprazole 40 MG TABCR PO (07:52)
[2023-09-18] MEDS: Lactulose 20 GM/30 ML CUP 40 GM PO (07:53)
[2023-09-18] MEDS: Diclofenac 1% Gel 100 GM TUBE TP (07:53)
[2023-09-18] MEDS: DOXYCYCLINE 100 MG in Normal Saline 100 ML IVPB (07:54)
[2023-09-18] MEDS: Methadone Liquid 10 MG/ML 80 MG PO (09:06)
--- NOTE | 2023-09-18 10:20 | W.PM.PROGNOT ---
Date of Service Date of service: 09/18/23 Time of Service: 10:20 Assessment and Plan Assessment and plan (1) Alcohol withdrawal seizure: Status: Acute Assessment and plan: reported seizures prior to admission, none since admission. not on any AED's, source likely from acute alcohol withdrawal, no EEG done as this is and EEG not available. Can perform as outpatient if needed. Qualifiers: Complication of substance-induced condition: uncomplicated Qualified Code(s): F10.930 - Alcohol use, unspecified with withdrawal, uncomplicated; R56.9 - Unspecified convulsions (2) Pneumonia: Status: Acute Assessment and plan: Blood cultures w/NGTD. CXR 09/14 w/ left basilar density, infiltrate vs atelectasis. she is on room air, not dyspneic or febrile. will check procalcitonin level if normal then dc antibiotics after today (day #5 of rocephin and doxycycline) Continue doxycycline/ceftriaxone day #5 of 5 negative for COVID-19. Continue prn albuterol. Qualifiers: Pneumonia type: aspiration pneumonia Aspiration pneumonia type: due to vomit Laterality: bilateral Lung location: unspecified part of lung Qualified Code(s): J69.0 - Pneumonitis due to inhalation of food and vomit (3) Alcoholic hepatitis: Status: Acute Assessment and plan: discriminant score 23 still below the threshold of 30 and therefore does not require systemic corticosteroids Qualifiers: Ascites presence: without ascites Qualified Code(s): K70.10 - Alcoholic hepatitis without ascites (4) Alcohol abuse: Status: Chronic Assessment and plan: Patient needs referral for rehab counselor upon discharge (5) Pancytopenia: Status: Chronic Assessment and plan: COVID-19 PCR is negative. Acute on chronic. Monitor for bleeding and infection. Platelet count is actually improving - 37,000 today. Hb stable at 8.4 gm, iron studies suggest she may be iron deficient, low normal iron level, low normal ferritin Continue to monitor. (6) Hepatic encephalopathy: Status: Acute Assessment and plan: Continue lactulose but at reduced dose as she seems to be stooling a lot (7) Alcoholic cirrhosis: Status: Chronic Assessment and plan: With thrombocytopenia and coagulopathy as well as encephalopathy. High risk for varices and catastrophic bleeding. hx of esophageal banding per patient. She remains on protonix for GI protection, I have added carafate to her regimen given her reports of coughing up blood prior to admission. hemoglobin remains stable at 8.4 gm. Palliative care consulted but patient declined consult Qualifiers: Ascites presence: without ascites Qualified Code(s): K70.30 - Alcoholic cirrhosis of liver without ascites (8) Coagulopathy: Status: Chronic Assessment and plan: In setting of cirrhosis Monitor for bleeding. monitor daily INR (9) Hypomagnesemia: Status: Acute Assessment and plan: repeat 1.6 this morning. will give additional iv dose and already on po magnesium supplement. No cardiac arrhythmias. I have dc her telemetry.. (10) DVT prophylaxis: Status: Acute Assessment and plan: TEDs Chemical DVT ppx is contraindicated given thrombocytopenia, coagulopathy, h/o variceal bleeding. (11) Discharge planning issues: Status: Acute Assessment and plan: refered to to provide patient w/ outpatient resources for housing. I think she is nearing medical readiness for dc. Subjective Subjective Interval history since last seen: No new concerns. Eating ok. No pain or nausea. She is concnerned about where she will stay when she leaves here. She has been staying w/ a friend on his/her couch (she did not clarify whom she was staying w/ but indicated it is not reliable housing). Exam Narrative Exam Narrative: Randi is alert, sitting up in her chair, just having voided on the bedside commode She is in no discomfort at present Lungs: clear Heart: RRR Abdomen: soft, nontender, normal bowel sounds, no palpable organomegaly Extremities: no edema Objective Last Vital Signs Temp 37.5 C 09/18/23 04:45 Pulse 96 H 09/18/23 07:57 Resp 17 09/18/23 03:01 BP 111/72 09/18/23 07:57 Pulse Ox 94 09/18/23 07:57 Laboratory Results - last 24 hr 09/18/23 09/18/23 05:32 05:32 WBC 3.09 L RBC 3.31 L Hgb 8.4 L Hct 26.4 L MCV 80 MCH 25.4 L MCHC 31.8 L RDW 22.9 H Plt Count 37 L MPV Immature Gran % 0.3 Neutrophils % 45.7 Lymphocytes % 39.8 Monocytes % 10.7 Eosinophils % 3.2 Basophils % 0.3 Nucleated RBC % 0.0 Absolute Neutrophils 1.41 Absolute Lymphocytes 1.23 Absolute Monocytes 0.33 Absolute Eosinophils 0.10 Absolute Basophils 0.01 RBC Morphology See Below Hypochromasia 1+ Anisocytosis 2+ PT 15.1 H INR 1.6 H Sodium 136 Potassium 3.6 Chloride 104 Carbon Dioxide 27.2 Anion Gap 4.8 BUN 3 L Creatinine 0.6 Est GFR (CKD-EPI 2020) 122.99 Glucose 98 Calcium 8.5 Magnesium 1.5 L Cancelled Total Bilirubin 1.8 H AST 61 H ALT 33 Alkaline Phosphatase 73 Total Protein 7.2 Albumin 2.6 L PAWSS Have you Been Recently Intoxicated or Drunk Within the Last 30 days?: Yes Have you Ever Experienced Previous Episodes of Alcohol Withdrawal?: Yes Have you ever Experienced Withdrawal Seizures?: Yes Have you ever Experienced Delirium Tremens(DT)s?: Yes Have you ever undergone Alcohol Rehabilitation Treatment (i.e, inpt ot outpatient treatment programs)?: Yes Have you ever Experienced Blackouts?: Yes Have you ever Combined Alcohol with other Downers within the last 90 days?: No Have you ever Combined Alcohol with any other Substance of Abuse during the last 90 days?: No Positive Blood Alcohol level on Presentation? [PCS.BAL]: Unable to Obtain Evidence of Increased Autonomic Activity (i.e. HR>120, tremor, sweating, agitation, nausea)?: Yes Result: 7 Time Spent with Patient Time Spent with Patient: 25-34 minutes Time was spent: preparing to see the patient(eg.review tests), ordering medications,tests, procedures, referring, communicating with other health client care representative, indepentently interpreting results, counseling the patient and care coordination
[2023-09-18] MEDS: MAGNESIUM SULFATE 2 GM/50 ML BAG IVPB (10:42)
[2023-09-18] MEDS: Nicotine 21 MG/24 HR PATCH TD (10:44)
[2023-09-18 11:18] LABS: Lab Add On Test DONE
[2023-09-18 11:31] LABS: C-Reactive Protein 1.22 mg/dL (0.0-0.3)
[2023-09-18 11:52] LABS: Procalcitonin < 0.1 ng/mL
--- NOTE | 2023-09-18 11:54 | NUR.NOTE ---
Patient speaks to behavioral health case manager. Patient indicates that she has a place to live, but will only be able to be discharged after 16:30. [facility] will be used for transport.Nursing Note:
--- NOTE | 2023-09-18 12:17 | CMDISCH_ITS ---
Date of service: 09/18/23 Time of Service: 12:19 LACE Index Scoring Tool Questions: Length of Stay (in days): 4 - 6 Was the patient admitted via the E.D.?: Yes E.D. Visits: 2 Answers: Total Score: 9 Risk of Readmission: Low Risk Care Management Discharge Plan Reason for Hospitalization: alcohol withdrawal seizure Discharge Plan: Randi's friend will pick her up this evening and transport her via private vehicle to [address] [place] [address] in [place], [place]. CM reviewed phone contacts for houselessness support as well. Randi will follow up with community providers and plan of care as prescribed. Patient/Family Education Needs: Review discharge instructions, discuss [facility].
[2023-09-18] MEDS: cefTRIAXone 2 GM/50 ML BAG IVPB (12:20)
--- NOTE | 2023-09-18 12:37 | PT.INIE ---
PT Notes Visit Reasons: Alcohol withdrawal seizures,Alcoholic cirrhosis,Co Inpatient Physical Therapy Evaluation Date: 09/18/23 Referring Doctor: Dr. Evangelista PT Orders: PT CONSULT: extended stay- weakness Precautions: standard Patient Profile/Admitting Diagnosis: Randi was admitted from the ER 09/12/23 for management of alcohol withdrawal. Social History/Home Situation: Patient is currently homeless, although states that she now has temporary housing. She reports that she will be leaving this afternoon. Reports that she is independent at baseline. Equipment Owned/DME: none Subjective: Randi states that she is doing fine. States that she's been getting up to use the commode and sit in her chair throughout the day. Feels a little weak, but otherwise fine. She's anxious to leave the hospital today, stating that she now has temporary housing. Objective: General Observation: Resting in bed with IV in LUE. Mental Status: A&Ox3, although groggy. Closes eyes throughout conversation. Pain: denies ROM: Right Upper Extremity: Grossly WNL, with the exception of right shoulder flexion, which is limited to 150*. Left Upper Extremity: WFL Right Lower Extremity: WFL Left Lower Extremity: WFL Strength: Right Upper Extremity: Shoulder flexion 3-/5. Biceps 4/5. Shoulder IR 4-/5. Shoulder ER 4-/5. Left Upper Extremity: Shoulder flexion 4/5. Biceps 4/5. Shoulder IR 4-/5. Shoulder ER 4-/5. Right Lower Extremity: Hip flexion 4/5. Quads 4+/5. Ankle DF 5/5. Left Lower Extremity: Hip flexion 4/5. Quads 4+/5. Ankle DF 5/5. Bed Mobility/Transfers: supine-sit: independent sit-supine: independent sit-stand: supervision stand-sit: supervision Gait: Ambulates 15' in treatment room independently. No losses of balance or safety impairment. No AD. Able to carry items table to chair without difficulty. Balance: Static Sitting: Normal Dynamic Sitting: Normal Static Standing: good Dynamic Standing: good 4-Position Balance Test: Small AMELIA: 10 seconds Partial Tandem: 10 seconds Full Tandem: 3 seconds Single Leg Stance: 0 seconds Special Tests: Mobility Limitations Standardized Measure [facility]-PAC 6 clicks Basic Mobility Inpatient Short Form: Raw Score: 23 CMS Score: 11% impairment Informed Consent/Education: Patient instructed in purpose of PT consult and plan of care. Assessment: Patient is a 33 year old female referred to physical therapy services with the diagnosis of weakness due to extended hospital stay. Patient reports that she will be leaving the hospital today, and she demonstrates sufficient safety and mobility to allow for safe transition back to community once medically stable. She does demonstrate moderate balance impairment, and was encouraged to gradually increase activity as she returns to the community. At this time, she does not require any additional PT intervention in acute care setting. She currently demonstrates the following impairment level findings: 1. decreased balance 2. decreased UE strength Impairments are contributing to the following functional limitations: 1. decreased balance in small AMELIA positions Patient is assessed as a Low [id number] complexity based on the following: History: Patient is a 33 year old female who has been managed in ICU following alcohol withdrawal. She demonstrates sufficient safety and mobility to allow for safe transition back to community once medically stable. Complicating factors include homelessness and alcohol dependence. Examination: functional limitations as above Presentation: evolving Decision Making: low Plan of Care/Treatment Plan: No further PT required in acute care setting DISCHARGE RECOMMENDATIONS: Safe for discharge to community once medically stable TREATMENT CODE/TIME: 12:20-12:35 ([id number]) Yoon Gonzalez, PT, DPT [facility] PFS All Active Problems (Updated 09/18/23 @ 10:46 by Kailash Evangelista MD) Palliative care encounter (Acute) Homelessness (Acute) Substance use disorder (Acute) Alcohol use disorder (Acute) Advance care planning (Acute) Pneumonia (Acute) Alcoholic hepatitis (Acute) Hepatic encephalopathy (Acute) Discharge planning issues (Acute) DVT prophylaxis (Acute) Hypomagnesemia (Acute) Coagulopathy (Chronic) Alcohol abuse (Chronic) Alcohol withdrawal seizure (Acute) Pancytopenia (Chronic) Abnormal gall bladder diagnostic imaging (Acute) Alcoholic (Chronic) Alcoholic cirrhosis (Chronic)
[2023-09-18] MEDS: IRON SUCROSE COMPLEX 400 MG in Normal Saline 250 ML 100 MG IVPB (13:15)
--- NOTE | 2023-09-18 14:31 | DSE_ITS ---
Date of service: 09/18/23 Time of Service: 14:31 DS: Diagnosis Discharge Diagnosis (1) Alcohol withdrawal seizure: Status: Acute (2) Pneumonia: Status: Acute (3) Alcoholic hepatitis: Status: Acute (4) Alcohol abuse: Status: Chronic (5) Pancytopenia: Status: Chronic (6) Hepatic encephalopathy: Status: Acute (7) Alcoholic cirrhosis: Status: Chronic (8) Coagulopathy: Status: Chronic (9) Hypomagnesemia: Status: Acute (10) DVT prophylaxis: Status: Acute (11) Discharge planning issues: Status: Acute Discharge Plan Disposition Patient Disposition: Home Condition: Improving Discharge Details Reason For Visit: Alcohol withdrawal seizures,Alcoholic cirrhosis,Co Admit Date/Time: 09/17/23 10:09 Admit Provider: Beronica Armando Attending Provider: Beronica Armando Primary Care Provider: Unknown,Unknown Hospital Course Hospital Course: Patient is a 33-year-old female with history of alcohol abuse who presented emergency department with acute alcohol withdrawal and reportedly had had alcoholic withdrawal seizures at home. Patient has been homeless and living with friends. She was admitted to the hospital initiated on lorazepam protocol with parenteral lorazepam and oral lorazepam to treat her withdrawal symptoms. CIWA scale and RASS scale were monitored. She was given supplemental multivitamin B12 folate and thiamine. She was found to have an aspiration pneumonia and was treated with doxycycline and ceftriaxone. She was found to have acute alcoholic hepatitis with elevated transaminases and bilirubin. Her Madrey discriminant function score was monitored and remained well below 30 indicating no need for corticosteroid treatment. Blood cultures were obtained on admission found to have no growth. She completed a 5-day course of ceftriaxone and doxycycline with improvement in her respiratory symptoms and was weaned off oxygen. Serial labs including CBC and CMP were monitored. She had a stable chronic anemia and upon discharge her hemoglobin was 8.4 g hematocrit 26%. Platelet count 37,000. LFTs improved her AST came down to 61 from a peak of 130. Her ALT was normal throughout her hospital course as well as her alkaline phosphatase. C-reactive protein remains mildly elevated at 1.22. Serial procalcitonin levels were obtained and were normal at less than 0.1. Follow-up chest x-ray was obtained prior to discharge and showed bibasilar densities suggestive of atelectasis versus infiltrates however clinically she was markedly better from respiratory standpoint. She was discharged home on 5 more days of doxycycline 100 mg twice a day. She was discharged home with an albuterol inhaler. For her chronic back pain she was placed on diclofenac topi coco cream. She was also started on gabapentin 100 mg 3 times daily and because she suffered from hepatic encephalopathy she was initiated on lactulose 40 g twice a day. Because of her hypomagnesemia she was discharged home on oral magnesium supplementation. Her Remeron and methadone doses were kept the same. She was discharged on GI protection including Protonix 40 mg daily and sucralfate 1 g ACHS. She was placed on vitamin supplementation including thiamine and folic acid and multivitamin. She is to follow-up with a telephone doctor would been on-call on the day of her admission which was April Palacio from [facility]. Case management gave the patient phone numbers to call for emergency housing placement. Apparently there is some temporary emergency housing available through the weekend based on the current weather conditions. Patient arranged for her boyfriend to pick her up upon discharge. Follow-up labs and chest x-ray are to be done next week including CMP CBC magnesium level. Home Meds and New Rx's Prescriptions: New sucralfate 1 gram Tablet 1 g PO AC & HS 30 Days Qty: 120 0RF thiamine mononitrate (vit B1) [Vitamin B-1 (mononitrate)] 100 mg Tablet 100 mg PO QAM 30 Days Qty: 30 0RF pantoprazole 40 mg Tablet,Delayed Release (Dr/Ec) 40 mg PO DAILY@0730 30 Days Qty: 30 0RF nicotine 21 mg/24 hr Patch 24 Hour 21 mg transdermal DAILY 28 Days Qty: 28 0RF multivitamin [Multiple Vitamins] Tablet 1 tab PO QAM Qty: 30 0RF Mag 64 64 mg Tablet,Delayed Release (Dr/Ec) 128 mg PO BID Qty: 60 0RF lactulose 20 gram/30 mL Solution 40 g PO BID Qty: 1200 0RF gabapentin 100 mg Capsule 100 mg PO TID Qty: 30 0RF folic acid 1 mg Tablet 1 mg PO QAM Qty: 30 0RF doxycycline hyclate 100 mg Capsule 100 mg PO Q12H 5 Days Qty: 10 0RF diclofenac sodium 3 % Gel 1 applic topical QID Qty: 100 0RF Rx Instructions: apply to back and sore joint 4 x per day as needed albuterol sulfate [Ventolin HFA] 90 mcg/actuation Hfa Aerosol Inhaler 2 puff inhalation Q4H PRN PRNQty: 8.5 0RF Continued mirtazapine [Remeron] 15 mg Tablet 30 mg PO HS methadone 10 mg/5 mL solution 80 mg PO QDAY lactulose 10 gram/15 mL solution 10 g PO PRN Discharge Instructions Instructions: Cirrhosis (DC), Aspiration Pneumonia (DC), Hepatic Encephalopathy (DC), Alcoholic Hepatitis (DC), Pancytopenia (DC) Referrals: April Palacio [NURSE PRACTITIONER] - 09/29/23 11:15 am (follow up in 1 to 2 weeks) Activity:: Activity as Tolerated Equipment/Supplies:: No Equipment Needed Diet:: no alcohol Discharge Orders Discharge Orders: Discharge Order (Routine); Ordered 09/18/23 Ordered By: Kailash Evangelista Other Ambulatory Orders: Complete Blood Count w/Diff (Routine) Timeframe: 1 Week Facility: [facility] - Location: Laboratory Outpatient - [facility] Ordered By: Kailash Evangelista Comprehensive Metabolic Panel (Routine) Timeframe: 1 Week Facility: [facility] - Location: Laboratory Outpatient - [facility] Ordered By: Kailash Evangelista XR chest 2V PA & lateral (Routine) Timeframe: 1 Week Facility: [facility] - Location: DIAGNOSTIC IMAGING Ordered By: Kailash Evangelista Magnesium (Routine) Timeframe: 1 Week Facility: [facility] - Location: Laboratory Outpatient - [facility] Ordered By: Kailash Evangelista Discharge Data Discharge Date/Time-TO BE ENTERED AT DEPARTURE: 09/18/23 17:34 DS: Summary Time Spent with Patient providing and/or coordinating discharge services: Greater than 30 minutes Specific discharge activities: Interview/exam of patient; review of discharge instructions, completion of prescriptions/discharge instructions; discussion w/ nursing and CM; documentation of hospital visit Status at Discharge Functional status at discharge: independent ambulation Overall status at discharge: patient is back to baseline Mental Status: mental status grossly normal Speech and Movement: speech and movement normal Mood: congruent mood Affect: normal affect Exam Narrative Exam Narrative: Randi is alert, sitting up in her chair She is in no discomfort at present Lungs: clear Heart: RRR Abdomen: soft, nontender, normal bowel sounds, no palpable organomegaly Extremities: no edema Psych Mental Status: mental status grossly normal Speech and Movement: speech and movement normal Mood: congruent mood Affect: normal affect DS: Data Vitals/I&O Vitals and I&O: Vital Signs Temperature 37.5 C 09/18/23 11:51 Temperature Source Temporal Artery Scan 09/18/23 11:51 Pulse 96 H 09/18/23 11:51 Pulse Rhythm Regular 09/18/23 08:38 Pulse Strength Normal 09/12/23 12:15 Pulse 104 H 09/18/23 03:01 Respiratory Rate 18 09/18/23 11:51 Respiratory Effort Normal, Non-Labored 09/18/23 08:38 Respiratory Depth Normal 09/18/23 08:38 Respiratory Pattern Normal 09/18/23 08:38 Blood Pressure 116/81 09/18/23 11:51 Blood Pressure Mean 84 09/18/23 07:57 Blood Pressure Position Supine 09/17/23 04:00 Pulse Oximetry 92 09/18/23 11:51 Oxygen Delivery Method Room Air 09/18/23 11:51 Oxygen Flow Rate 0 09/18/23 11:51 Pain Level 0 09/17/23 08:49 Comment O2 1/2 LPM applied. 09/17/23 12:30 Comment CIWA-23 09/13/23 00:00 Intake & Output 09/17/23 09/18/23 09/18/23 23:59 11:59 23:59 Intake Total 1240 / 2295 340 / 550 210 / 550 Output Total 600 / 1900 500 / 500 Balance 640 / 395 -160 / 50 210 / 50 Intake: IV 200 / 320 100 / 150 50 / 150 Oral 1040 / 1975 240 / 400 160 / 400 Output: Urine 600 / 1900 500 / 500 Other: Urine Color Yellow Yellow Urine Appearance Clear Clear Urine Odor Strong Comment large void mixed with stool Stool Size Large Moderate Stool Characteristics Formed Formed Voiding Methods Bedside Commode Bedside Commode Data Completed and Pending Labs on day of discharge: Labs from last 24 hours 09/18/23 09/18/23 09/18/23 Unknown 05:32 05:32 WBC 3.09 L RBC 3.31 L Hgb 8.4 L Hct 26.4 L MCV 80 MCH 25.4 L MCHC 31.8 L RDW 22.9 H Plt Count 37 L MPV Immature Gran % 0.3 Neutrophils % 45.7 Lymphocytes % 39.8 Monocytes % 10.7 Eosinophils % 3.2 Basophils % 0.3 Nucleated RBC % 0.0 Absolute Neutrophils 1.41 Absolute Lymphocytes 1.23 Absolute Monocytes 0.33 Absolute Eosinophils 0.10 Absolute Basophils 0.01 RBC Morphology See Below Hypochromasia 1+ Anisocytosis 2+ PT 15.1 H INR 1.6 H Sodium 136 Potassium 3.6 Chloride 104 Carbon Dioxide 27.2 Anion Gap 4.8 BUN 3 L Creatinine 0.6 Est GFR (CKD-EPI 2020) 122.99 Glucose 98 Calcium 8.5 Magnesium Cancelled 1.5 L Total Bilirubin 1.8 H AST 61 H ALT 33 Alkaline Phosphatase 73 C-Reactive Protein 1.22 H Total Protein 7.2 Albumin 2.6 L Procalcitonin < 0.1 Add-On Test Request DONE Preliminary micro results at discharge 09/14/23 09:30 Blood Culture - Preliminary Blood NO GROWTH 96 HOURS 09/14/23 09:25 Blood Culture - Preliminary Blood NO GROWTH 96 HOURS PFSH All Active Problems Palliative care encounter (Acute) Homelessness (Acute) Substance use disorder (Acute) Alcohol use disorder (Acute) Advance care planning (Acute) Pneumonia (Acute) Alcoholic hepatitis (Acute) Hepatic encephalopathy (Acute) Discharge planning issues (Acute) DVT prophylaxis (Acute) Hypomagnesemia (Acute) Coagulopathy (Chronic) Alcohol abuse (Chronic) Alcohol withdrawal seizure (Acute) Pancytopenia (Chronic) Abnormal gall bladder diagnostic imaging (Acute) Alcoholic (Chronic) Alcoholic cirrhosis (Chronic) Social History Smoking/Tobacco Use Status: Current every day Tobacco Type: cigarettes Smoking risk assessment performed?: Yes Alcohol Intake: current Alcohol Intake frequency: 3 or more drinks per day Alcohol type: hard liquor Drug use: Binges Substance use type: does not use and former substance user Details: on methadone 80mg for opiate addiction, drinks a fifth of vodka daily when drinking Housing: apartment Do you feel safe at home: Yes Do you feel safe in your relationship?: Yes Time Spent with Patient Time Spent with Patient: <45 minutes Time was spent: preparing to see the patient(eg.review tests), ordering medications,tests, procedures, referring, communicating with other health home health aide caregiver (Creating discharge summary), indepentently interpreting results, counseling the patient and care coordination
[2023-09-18] MEDS: Doxycycline Hyclate 100 MG CAP PO (17:11)
== END 2023-09-18 17:34 | disposition home or self-care (01) | DRG 896 ==
LOC: ER 15:51 → ICU 09-13 10:43
PROVIDERS: Internal Medicine; Admitting Provider Internal Medicine; Emergency Provider Nurse Practitioner Family; Visit Provider Internal Medicine
DX: F10.139 Alcohol abuse with withdrawal, unspecified (principal); J69.0 Pneumonitis due to inhalation of food and vomit; D61.818 Other pancytopenia; Z59.00 Homelessness unspecified; F11.20 Opioid dependence, uncomplicated; I85.10 Secondary esophageal varices without bleeding; R56.9 Unspecified convulsions; K76.82 Hepatic encephalopathy; K70.30 Alcoholic cirrhosis of liver without ascites; E83.42 Hypomagnesemia; K70.10 Alcoholic hepatitis without ascites; D64.9 Anemia, unspecified; D72.819 Decreased white blood cell count, unspecified; F17.210 Nicotine dependence, cigarettes, uncomplicated
CPT/HCPCS: 00123; 36410; 36415; 80048; 80053; 80076; 81025; 82550; 84145; 87040; 87635; 87637; 96365; 96375; 97161; 99285; 70450; 71045; 71046; 80320; 81003; 82140; 82607; 82728; 82746; 83540; 83550; 83735; 84100; 85025; 85610; 85730; 86140; 87086; 94640; 94667; 94668; 94760; 99233; 99239; 99291; J1756; J2060; J2405; J3475; J3480

== ENCOUNTER 2025-10-09 09:19 | Inpatient (IN) | payer MEDICAID, SELFPAY ==
[2025-10-09] VITALS (126 sets, daily range): BP systolic 100–156; BP diastolic 52–82; PULSE 83–112; RESP 10–26; TEMP 36.6–37.2; O2SAT 86–96
--- NOTE | 2025-10-09 09:45 | RT.EKG_ITS ---
APPROVED REPORT Exam: Resting ECG Reason for Exam: Shortness of breath Patient Location: E HR:92 bpm ECG Measurements Heart Rate 92 AXIS AR 157 P 77 QRSd 94 QRS 30 QT 384 T 59 QTc 474 Conclusion Sinus rhythm...normal P axis, V-rate 60- 99 No Occlusion MN
[2025-10-09 10:06] LABS: BE (Venous) 5 mmol/L (-2-3); HCO3 (Venous) 29 mmol/L (23-28); O2 Sat (Venous) 96 %; TCO2 (Venous) 25 mmol/L (24-29); pCO2 (Venous) 42 mmHg (41-51); pO2 (Venous) 76 mmHg
[2025-10-09 10:08] LABS: Abs Immature Grans 0.01 10^3/uL (0.0-0.06); HCT 41.0 % (36.0-46.0); HGB 13.9 g/dL (11.2-15.7); Immature Grans % 0.2 %; MCH 28.5 pg (27.0-33.0); MCHC 33.9 % (32.0-36.0); MCV 84 fL (80-95); MPV 10.9 fL (8.0-11.0); RBC 4.87 10^6/uL (3.93-5.22); RDW 17.2 % (11.7-14.6); RDW-SD 51.8 fL; WBC 4.44 10^3/uL (4.4-10.8)
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
[2025-10-09 10:28] LABS: Lipase 29 U/L (<53); Magnesium 1.3 mg/dL (1.6-2.6)
[2025-10-09 10:30] LABS: ALT 37 U/L (10-49); AST 87 U/L (<34); Albumin 3.5 g/dL (3.2-5.0); Alkaline Phosphatase 103 U/L (46-116); Anion Gap 9.5 mmol/L (3-11); BUN 6 mg/dL (9-23); Bilirubin, Total 3.2 mg/dL (0.2-1.2); CO2 27.5 mmol/L (20.0-31.0); Calcium 8.3 mg/dL (8.3-10.6); Chloride 104 mmol/L (98-107); Glucose 118 mg/dL (74-106); Potassium 3.4 mmol/L (3.5-5.1); Sodium 141 mmol/L (136-145); Total Protein 7.2 g/dL (5.7-8.2)
[2025-10-09 10:31] LABS: HCG Qual (Serum) Negative
[2025-10-09 10:32] LABS: Troponin I < 3 ng/L (<35)
[2025-10-09 10:33] LABS: Platelet Count 42 10^3/uL (130-400); RBC Morphology Normal
[2025-10-09] MEDS: CEFEPIME 2 GM in Normal Saline 100 ML IVPB (10:34)
--- NOTE | 2025-10-09 10:34 | DI.RAD_ITS ---
Exam(s) XR PORTABLE CHEST AP EXAM: XR PORTABLE CHEST AP CLINICAL HISTORY: Shortness of breath TECHNIQUE: 2D digital imaging was performed of the chest. One image was obtained. An AP view was obtained. COMPARISON: CR XR PORTABLE CHEST AP from 09/14/2023 FINDINGS: MEDIASTINUM: Normal. HEART: Normal. PULMONARY VASCULATURE: There is prominence of the pulmonary vasculature and interstitium suggesting pulmonary edema. LUNGS: There are no focal consolidating infiltrates. PLEURAL SPACE: No pleural effusion or pneumothorax. BONE:Within normal limits for the patient's age. OTHER FINDINGS:There is a TIPS in the abdomen. IMPRESSION: 1. Findings suggestive of mild pulmonary venous congestion. 2. No focal consolidating infiltrates. DATA REPOSITORY: RADIATION DOSE DELIVERED:
[2025-10-09] MEDS: chlordiazePOXIDE 25 MG CAP 50 MG PO (10:36)
[2025-10-09 10:50] LABS: D-Dimer 1757 ng/mlFEU (<500)
[2025-10-09] MEDS: Doxycycline Hyclate 100 MG CAP PO (10:56)
--- NOTE | 2025-10-09 11:00 | DI.CT_ITS ---
Exam(s) CT CHEST PE ABD PELVIS W EXAM: CT CHEST PE ABD PELVIS W CLINICAL HISTORY: Hypoxic abdominal pain positive dimer. TECHNIQUE: Imaging Protocol: Axial CT angiography was performed with multi- slice acquisition and multi-planar and/or 3D reconstructions. Computer aided detection (CAD) was utilized. CONTRAST MATERIAL: Intravenous: Omnipaque 350contrast volume:75 mL COMPARISON: CR XR PORTABLE CHEST AP from 10/09/2025 FINDINGS: CHEST: Tracheobronchial tree: Patent where visualized. No evidence of bronchiectasis. Pulmonary parenchyma: There are linear opacities scattered throughout the lungs. These are nonspecific. There are no pulmonary nodules. No architectural distortion. Pulmonary Arteries: No evidence of filling defect to suggest pulmonary emboli. Mediastinum and Lucrecia: No dominant adenopathy or fluid collection. The esophagus is unremarkable. Visualized thyroid gland: Unremarkable. Pleura: No effusion or pneumothorax. Heart: The heart is not dilated. No coronary artery calcifications are seen. No pericardial effusion. Aorta: Thoracic aorta non-dilated. No evidence of dissection. Bones: Within normal limits for the patient's age. There is a subacute displaced healing fracture of the posterior aspect of the left 7th rib. Soft tissues: Unremarkable. ABDOMEN: Liver: There is diffuse decreased attenuation of the liver which has a nodular contour consistent with hepatic cirrhosis. There is a TIPS in place. No measurable mass. Portal, Superior Mesenteric, and Splenic Veins: There is an area of decreased attenuation within the superior mesenteric vein near its junction with the splenic vein suspicious for thrombus. There are gastroesophageal varices. Gallbladder and Biliary Tract: No radiodense calculus or dilation. Pancreas: Normal density, no abnormal calcifications or inflammatory process. Spleen: The spleen is enlarged. Adrenals: No masses seen. Kidneys: Normal size, contour and axis. No radiodense stones or obstructive uropathy. No masses seen. Abdominal Aorta: Abdominal portion non-dilated. Atherosclerotic calcification is present. Bowel: No obstruction or bowel wall thickening. There is redundant sigmoid colon. There is a normal appendix. Peritoneal Cavity: There is no ascites present. There are mildly prominent retroperitoneal lymph nodes. No free air. Lymph Nodes: Mildly prominent retroperitoneal lymph nodes are present. Bones: Within normal limits for the patient's age. Soft Tissues: Unremarkable. PELVIS: Bladder: Symmetric distention, no gross wall thickening. Reproductive Organs: Unremarkable as visualized. Lymph Nodes: Within normal limits. Bones: Within normal limits. IMPRESSION: 1. Subacute fracture involving the posterior aspect of the left 7th rib with callus formation developing. 2. There is no pneumothorax or pleural effusion. 3. No evidence of an acute abdominal process. 4. Findings of hepatic cirrhosis with sequelae of portal venous hypertension. Status post TIPS. No ascites. 5. Linear opacities scattered within the lungs which are nonspecific. This may represent atelectasis. Pneumonia cannot be excluded. Please correlate clinically. 6. There is no evidence of a pulmonary embolism, thoracic aortic dissection or aneurysm. RADIATION DOSE DELIVERED: 404.14mGy.cm Total DLP DATA REPOSITORY: All CT scans at this facility are submitted to the National Radiology Data Registry (NRDR) Dose Index Registry (DIR) with the [employer] (ACR). RADIATION OPTIMIZATION: All CT scans at this facility use at least one of these dose optimization techniques: automated exposure control; mA and/or kV adjustment per patient size (includes targeted exams where dose is matched to clinical indication); or iterative reconstruction.
[2025-10-09 11:03] LABS: Lab Add On Test DONE
[2025-10-09] MEDS: PHENobarbital 130 MG in Normal Saline 50 ML 100 MG IVPB (11:10)
[2025-10-09] MEDS: MAGNESIUM SULFATE 2 GM/50 ML BAG IVINF (11:12)
[2025-10-09 11:18] LABS: COVID-19 PCR Negative (Negative); RSV PCR Negative (Negative)
[2025-10-09] MEDS: VANCOMYCIN/WATER (PEG) 1.25 GM/250 ML BAG IVPB (11:52)
[2025-10-09] MEDS: Ondansetron 4 MG/2 ML VIAL IVP (12:02)
[2025-10-09] MEDS: Normal Saline 500 ML IV (12:06)
[2025-10-09 12:27] LABS: INR 1.4 (0.9-1.1); PTT Activated 36.1 sec (20.6-30.2); Prothrombin Time 13.8 sec (9.1-11.1)
[2025-10-09] MEDS: Normal Saline - Diluent 50 ML VIAL IJ (12:43)
[2025-10-09] MEDS: Omnipaque 350 MG/ML 100 ML BTL IJ (12:43)
[2025-10-09 13:55] LABS: Troponin I < 3 ng/L (<35)
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
--- NOTE | 2025-10-09 15:44 | W.PCEDHO ---
Registration Status: REG ER Primary Language: Preferred Language: ED Information & Data Chief Complaint SOB 10/09/25 10:19 Triage Note Sick for last month, was 10/09/25 09:24 intubated at another hospital, when extubated signed out AMA. Been without oxygen for last month. Requires oxygen for end stage liver failure Medical / Surgical History (Last Updated 09/23/23 @ 08:55 by Ping Rodriguez RN) Palliative care encounter Most Recent Vital Signs Temperature 36.6 C 10/09/25 09:28 Temperature Source Oral 10/09/25 09:28 Pulse 96 H 10/09/25 15:31 Pulse 96 H 10/09/25 15:31 Respiratory Rate 15 10/09/25 15:31 Respiratory Effort Non-Labored, Short of Breath 10/09/25 09:28 Respiratory Depth Normal 10/09/25 09:28 Respiratory Pattern Normal 10/09/25 12:52 Blood Pressure 111/62 10/09/25 15:31 Blood Pressure Mean 75 10/09/25 15:31 Blood Pressure Position Sitting 10/09/25 09:28 Pulse Oximetry 92 10/09/25 15:31 Oxygen Delivery Method Nasal Cannula 10/09/25 09:28 Oxygen Flow Rate 4 10/09/25 09:28 Pain Level 7 10/09/25 09:28 Allergies clindamycin Adverse Reaction (Intermediate, Unverified 09/12/23 10:47) Nausea Precautions Isolation Standard precaution 10/09/25 09:28 Active Medications Generic Name Dose Route Start Last Admin Trade Name Freq PRN Reason Stop Dose Admin Iohexol 100 ml 10/09/25 12:45 10/09/25 12:43 Omnipaque 350 Mg/Ml 100 Ml Btl IJ 11/08/25 23:59 75 ml DIRECTED ALEENA Administration Sodium Chloride 50 ml 10/09/25 12:45 10/09/25 12:43 Normal Saline - Diluent 50 Ml Vial IJ 50 ml DIRECTED ALEENA Administration IV IV Catheter Type [Left Peripheral IV Antecubital] IV Catheter Type [Right Peripheral IV Antecubital] IV Catheter Gauge [Left 18 Antecubital] IV Catheter Gauge [Right 18 Antecubital] Diet Orders Category Date Time Status Regular/Normal [DIET] Nutrition 10/09/25 Dinner Active Diagnostics 10/09/25 10/09/25 10/09/25 Range/Units 13:07 12:10 10:35 WBC (4.4-10.8) 10^3/uL RBC (3.93-5.22) 10^6/uL Hgb (11.2-15.7) g/dL Hct (36.0-46.0) % MCV (80-95) fL MCH (27.0-33.0) pg MCHC (32.0-36.0) % RDW (11.7-14.6) % Plt Count (130-400) 10^3/uL MPV (8.0-11.0) fL Immature Gran % % Neutrophils % % Lymphocytes % % Monocytes % % Eosinophils % % Basophils % % Nucleated RBC % (0.0-0.3) % Absolute Neutrophils (1.2-6.7) 10^3/uL Absolute Lymphocytes (1.2-3.4) 10^3/uL Absolute Monocytes (0.1-0.8) 10^3/uL Absolute Eosinophils (0.0-0.7) 10^3/uL Absolute Basophils (0.0-0.2) 10^3/uL RBC Morphology PT 13.8 H (9.1-11.1) sec INR 1.4 H (0.9-1.1) APTT 36.1 H (20.6-30.2) sec D-Dimer (<500) ng/mlFEU VBG pH (7.31-7.41) VBG pCO2 (41-51) mmHg VBG pO2 mmHg VBG HCO3 (23-28) mmol/L VBG Total CO2 (24-29) mmol/L VBG O2 Saturation % VBG Base Excess (-2-3) mmol/L VBG Lactate Sodium (136-145) mmol/L Potassium (3.5-5.1) mmol/L Chloride (98-107) mmol/L Carbon Dioxide (20.0-31.0) mmol/L Anion Gap (3-11) mmol/L BUN (9-23) mg/dL Creatinine (0.55-1.02) mg/dL Est GFR (CKD-EPI 2020) (mL/min/1.73m2) Glucose (74-106) mg/dL Calcium (8.3-10.6) mg/dL Magnesium (1.6-2.6) mg/dL Total Bilirubin (0.2-1.2) mg/dL AST (<34) U/L ALT (10-49) U/L Alkaline Phosphatase (46-116) U/L Troponin I < 3 (<35) ng/L Total Protein (5.7-8.2) g/dL Albumin (3.2-5.0) g/dL Lipase (<53) U/L Serum HCG, Qual Ethyl Alcohol (<3) mg/dL COVID-19 Source Nasopharynx SARS-CoV-2 (PCR) Negative (Negative) Influenza Type A (PCR) Negative (Negative) Influenza Type B (PCR) Negative (Negative) RSV (PCR) Negative (Negative) Add-On Test Request ABO/Rh Antibody Screen 10/09/25 10/09/25 10/09/25 Range/Units 10:10 09:45 09:45 WBC 4.44 (4.4-10.8) 10^3/uL RBC 4.87 (3.93-5.22) 10^6/uL Hgb 13.9 (11.2-15.7) g/dL Hct 41.0 (36.0-46.0) % MCV 84 (80-95) fL MCH 28.5 (27.0-33.0) pg MCHC 33.9 (32.0-36.0) % RDW 17.2 H (11.7-14.6) % Plt Count 42 L (130-400) 10^3/uL MPV 10.9 (8.0-11.0) fL Immature Gran % 0.2 % Neutrophils % 55.0 % Lymphocytes % 33.1 % Monocytes % 7.2 % Eosinophils % 4.3 % Basophils % 0.2 % Nucleated RBC % 0.0 (0.0-0.3) % Absolute Neutrophils 2.44 (1.2-6.7) 10^3/uL Absolute Lymphocytes 1.47 (1.2-3.4) 10^3/uL Absolute Monocytes 0.32 (0.1-0.8) 10^3/uL Absolute Eosinophils 0.19 (0.0-0.7) 10^3/uL Absolute Basophils 0.01 (0.0-0.2) 10^3/uL RBC Morphology Normal PT (9.1-11.1) sec INR (0.9-1.1) APTT (20.6-30.2) sec D-Dimer 1757 H (<500) ng/mlFEU VBG pH 7.44 H (7.31-7.41) VBG pCO2 42 (41-51) mmHg VBG pO2 76 mmHg VBG HCO3 29 H (23-28) mmol/L VBG Total CO2 25 (24-29) mmol/L VBG O2 Saturation 96 % VBG Base Excess 5 H (-2-3) mmol/L VBG Lactate 1.8 Cancelled Sodium 141 (136-145) mmol/L Potassium 3.4 L (3.5-5.1) mmol/L Chloride 104 (98-107) mmol/L Carbon Dioxide 27.5 (20.0-31.0) mmol/L Anion Gap 9.5 (3-11) mmol/L BUN 6 L (9-23) mg/dL Creatinine 0.48 L (0.55-1.02) mg/dL Est GFR (CKD-EPI 2020) 148.67 (mL/min/1.73m2) Glucose 118 H (74-106) mg/dL Calcium 8.3 (8.3-10.6) mg/dL Magnesium 1.3 L (1.6-2.6) mg/dL Total Bilirubin 3.2 H (0.2-1.2) mg/dL AST 87 H (<34) U/L ALT 37 (10-49) U/L Alkaline Phosphatase 103 (46-116) U/L Troponin I < 3 (<35) ng/L Total Protein 7.2 (5.7-8.2) g/dL Albumin 3.5 (3.2-5.0) g/dL Lipase 29 (<53) U/L Serum HCG, Qual Negative Ethyl Alcohol < 3.0 (<3) mg/dL COVID-19 Source SARS-CoV-2 (PCR) (Negative) Influenza Type A (PCR) (Negative) Influenza Type B (PCR) (Negative) RSV (PCR) (Negative) Add-On Test Request DONE ABO/Rh B Positive Antibody Screen NEGATIVE 10/09/25 10:25 Blood Culture - Pending Blood 10/09/25 10:10 Blood Culture - Pending Blood Intake and Output - 24 Hour Total 10/09/25 09:19 thru 10/09/25 13:56 Intake Total 951 Balance 951 Weight 61.235 kg Intake: IV 951 Falls Risk Assessment History of Falls No History 10/09/25 09:28 Contributing Factors No Factors 10/09/25 09:28 Ambulatory Aids Independent 10/09/25 09:28 Tubes/Lines None 10/09/25 09:28 Gait Evaluation No gait disturbance 10/09/25 09:28 Cognition No cognitive impairment 10/09/25 09:28 Fall Total Score 0 10/09/25 09:28 Level of Risk Standard/Low Risk 10/09/25 09:28 Problems (Last Updated 09/23/23 @ 08:55 by Ping Rodriguez RN) Community acquired pneumonia (Acute) Thrombocytopenia (Chronic) Acute hypoxic respiratory failure (Acute) Hyperbilirubinemia (Acute) Hypomagnesemia (Acute) Attestation Statement: By documenting the first initial, last name, and credentials of the reporting nurse below, both parties acknowledge that all relevant information regarding the patient handoff has been communicated, and that all questions have been addressed to ensure continuity and safety of care. Additional Patient Information/Comments: Report Received From: Yesica HARVEY RN Patient is a 35 year old female being admitted for pneumonia. She has been having increasing worse breathing difficulties over the last month. 1 month ago she was admitted to [facility] for pneumonia and left AMA. She is in end stage liver disease and is also here for detox from alcohol. CIWA was 16 and she received medication and was down to a 4. BP 111/62 and HR in the 90s. Lungs sound clear and she has no open areas to her skin. She has eaten and drank but has not voided since shes came here.
[2025-10-09 17:16] LABS: Cannabinoids THC Negative (Negative)
[2025-10-09] MEDS: PHENobarbital 100 MG in Normal Saline 50 ML IVPB ×2 (17:22→20:33)
--- NOTE | 2025-10-09 17:31 | W.PC.ACHO ---
Registration Status: ADM IN Primary Language: Preferred Language: ED Information & Data Chief Complaint SOB 10/09/25 10:19 Triage Note Sick for last month, was 10/09/25 09:24 intubated at another hospital, when extubated signed out AMA. Been without oxygen for last month. Requires oxygen for end stage liver failure Medical / Surgical History (Last Updated 09/23/23 @ 08:55 by Ping Rodriguez RN) Palliative care encounter Most Recent Vital Signs Temperature 37.2 C 10/09/25 16:04 Temperature Source Oral 10/09/25 09:28 Pulse 95 H 10/09/25 16:04 Pulse 96 H 10/09/25 15:31 Respiratory Rate 16 10/09/25 16:04 Respiratory Effort Normal 10/09/25 16:04 Respiratory Depth Normal 10/09/25 16:04 Respiratory Pattern Normal 10/09/25 16:04 Blood Pressure 121/65 10/09/25 16:04 Blood Pressure Mean 75 10/09/25 15:31 Blood Pressure Position Sitting 10/09/25 09:28 Pulse Oximetry 91 L 10/09/25 16:04 Oxygen Delivery Method Nasal Cannula 10/09/25 16:04 Oxygen Flow Rate 4.5 10/09/25 16:04 Pain Level 5 10/09/25 16:33 Allergies clindamycin Adverse Reaction (Intermediate, Unverified 09/12/23 10:47) Nausea Precautions Isolation Standard precaution 10/09/25 09:28 Active Medications Generic Name Dose Route Start Last Admin Trade Name Freq PRN Reason Stop Dose Admin Phenobarbital Sodium 100 mg/ 50.7692 mls @ 100 mls/hr 10/09/25 17:00 10/09/25 17:22 Sodium Chloride IVPB 10/09/25 17:30 100 mls/hr NOW ONE Administration IV IV Catheter Type [Left Saline Lock Antecubital] IV Catheter Type [Right Saline Lock Antecubital] IV Catheter Gauge [Left 18 Antecubital] IV Catheter Gauge [Right 18 Antecubital] Diet Orders Category Date Time Status Regular/Normal [DIET] Nutrition 10/09/25 Dinner Active Diagnostics 10/09/25 10/09/25 10/09/25 Range/Units 16:15 13:07 12:10 WBC (4.4-10.8) 10^3/uL RBC (3.93-5.22) 10^6/uL Hgb (11.2-15.7) g/dL Hct (36.0-46.0) % MCV (80-95) fL MCH (27.0-33.0) pg MCHC (32.0-36.0) % RDW (11.7-14.6) % Plt Count (130-400) 10^3/uL MPV (8.0-11.0) fL Immature Gran % % Neutrophils % % Lymphocytes % % Monocytes % % Eosinophils % % Basophils % % Nucleated RBC % (0.0-0.3) % Absolute Neutrophils (1.2-6.7) 10^3/uL Absolute Lymphocytes (1.2-3.4) 10^3/uL Absolute Monocytes (0.1-0.8) 10^3/uL Absolute Eosinophils (0.0-0.7) 10^3/uL Absolute Basophils (0.0-0.2) 10^3/uL RBC Morphology PT 13.8 H (9.1-11.1) sec INR 1.4 H (0.9-1.1) APTT 36.1 H (20.6-30.2) sec D-Dimer (<500) ng/mlFEU VBG pH (7.31-7.41) VBG pCO2 (41-51) mmHg VBG pO2 mmHg VBG HCO3 (23-28) mmol/L VBG Total CO2 (24-29) mmol/L VBG O2 Saturation % VBG Base Excess (-2-3) mmol/L VBG Lactate Sodium (136-145) mmol/L Potassium (3.5-5.1) mmol/L Chloride (98-107) mmol/L Carbon Dioxide (20.0-31.0) mmol/L Anion Gap (3-11) mmol/L BUN (9-23) mg/dL Creatinine (0.55-1.02) mg/dL Est GFR (CKD-EPI 2020) (mL/min/1.73m2) Glucose (74-106) mg/dL Calcium (8.3-10.6) mg/dL Magnesium (1.6-2.6) mg/dL Total Bilirubin (0.2-1.2) mg/dL AST (<34) U/L ALT (10-49) U/L Alkaline Phosphatase (46-116) U/L Troponin I < 3 (<35) ng/L Total Protein (5.7-8.2) g/dL Albumin (3.2-5.0) g/dL Lipase (<53) U/L Serum HCG, Qual Urine Opiates Screen Negative (Negative) Urine Methadone Screen Negative (Negative) Ur Barbiturates Screen Positive A (Negative) Ur Tricyclics Screen Negative (Negative) Ur Amphetamines Screen Negative (Negative) U Benzodiazepines Scrn Negative (Negative) Urine Cocaine Screen Positive A (Negative) U Cannabinoids Screen Negative (Negative) Ethyl Alcohol (<3) mg/dL COVID-19 Source SARS-CoV-2 (PCR) (Negative) Influenza Type A (PCR) (Negative) Influenza Type B (PCR) (Negative) RSV (PCR) (Negative) Add-On Test Request ABO/Rh Antibody Screen 10/09/25 10/09/25 10/09/25 Range/Units 10:35 10:10 09:45 WBC (4.4-10.8) 10^3/uL RBC (3.93-5.22) 10^6/uL Hgb (11.2-15.7) g/dL Hct (36.0-46.0) % MCV (80-95) fL MCH (27.0-33.0) pg MCHC (32.0-36.0) % RDW (11.7-14.6) % Plt Count (130-400) 10^3/uL MPV (8.0-11.0) fL Immature Gran % % Neutrophils % % Lymphocytes % % Monocytes % % Eosinophils % % Basophils % % Nucleated RBC % (0.0-0.3) % Absolute Neutrophils (1.2-6.7) 10^3/uL Absolute Lymphocytes (1.2-3.4) 10^3/uL Absolute Monocytes (0.1-0.8) 10^3/uL Absolute Eosinophils (0.0-0.7) 10^3/uL Absolute Basophils (0.0-0.2) 10^3/uL RBC Morphology PT (9.1-11.1) sec INR (0.9-1.1) APTT (20.6-30.2) sec D-Dimer (<500) ng/mlFEU VBG pH (7.31-7.41) VBG pCO2 (41-51) mmHg VBG pO2 mmHg VBG HCO3 (23-28) mmol/L VBG Total CO2 (24-29) mmol/L VBG O2 Saturation % VBG Base Excess (-2-3) mmol/L VBG Lactate 1.8 Sodium 141 (136-145) mmol/L Potassium 3.4 L (3.5-5.1) mmol/L Chloride 104 (98-107) mmol/L Carbon Dioxide 27.5 (20.0-31.0) mmol/L Anion Gap 9.5 (3-11) mmol/L BUN 6 L (9-23) mg/dL Creatinine 0.48 L (0.55-1.02) mg/dL Est GFR (CKD-EPI 2020) 148.67 (mL/min/1.73m2) Glucose 118 H (74-106) mg/dL Calcium 8.3 (8.3-10.6) mg/dL Magnesium 1.3 L (1.6-2.6) mg/dL Total Bilirubin 3.2 H (0.2-1.2) mg/dL AST 87 H (<34) U/L ALT 37 (10-49) U/L Alkaline Phosphatase 103 (46-116) U/L Troponin I < 3 (<35) ng/L Total Protein 7.2 (5.7-8.2) g/dL Albumin 3.5 (3.2-5.0) g/dL Lipase 29 (<53) U/L Serum HCG, Qual Negative Urine Opiates Screen (Negative) Urine Methadone Screen (Negative) Ur Barbiturates Screen (Negative) Ur Tricyclics Screen (Negative) Ur Amphetamines Screen (Negative) U Benzodiazepines Scrn (Negative) Urine Cocaine Screen (Negative) U Cannabinoids Screen (Negative) Ethyl Alcohol < 3.0 (<3) mg/dL COVID-19 Source Nasopharynx SARS-CoV-2 (PCR) Negative (Negative) Influenza Type A (PCR) Negative (Negative) Influenza Type B (PCR) Negative (Negative) RSV (PCR) Negative (Negative) Add-On Test Request DONE ABO/Rh B Positive Antibody Screen NEGATIVE 10/09/25 Range/Units 09:45 WBC 4.44 (4.4-10.8) 10^3/uL RBC 4.87 (3.93-5.22) 10^6/uL Hgb 13.9 (11.2-15.7) g/dL Hct 41.0 (36.0-46.0) % MCV 84 (80-95) fL MCH 28.5 (27.0-33.0) pg MCHC 33.9 (32.0-36.0) % RDW 17.2 H (11.7-14.6) % Plt Count 42 L (130-400) 10^3/uL MPV 10.9 (8.0-11.0) fL Immature Gran % 0.2 % Neutrophils % 55.0 % Lymphocytes % 33.1 % Monocytes % 7.2 % Eosinophils % 4.3 % Basophils % 0.2 % Nucleated RBC % 0.0 (0.0-0.3) % Absolute Neutrophils 2.44 (1.2-6.7) 10^3/uL Absolute Lymphocytes 1.47 (1.2-3.4) 10^3/uL Absolute Monocytes 0.32 (0.1-0.8) 10^3/uL Absolute Eosinophils 0.19 (0.0-0.7) 10^3/uL Absolute Basophils 0.01 (0.0-0.2) 10^3/uL RBC Morphology Normal PT (9.1-11.1) sec INR (0.9-1.1) APTT (20.6-30.2) sec D-Dimer 1757 H (<500) ng/mlFEU VBG pH 7.44 H (7.31-7.41) VBG pCO2 42 (41-51) mmHg VBG pO2 76 mmHg VBG HCO3 29 H (23-28) mmol/L VBG Total CO2 25 (24-29) mmol/L VBG O2 Saturation 96 % VBG Base Excess 5 H (-2-3) mmol/L VBG Lactate Cancelled Sodium (136-145) mmol/L Potassium (3.5-5.1) mmol/L Chloride (98-107) mmol/L Carbon Dioxide (20.0-31.0) mmol/L Anion Gap (3-11) mmol/L BUN (9-23) mg/dL Creatinine (0.55-1.02) mg/dL Est GFR (CKD-EPI 2020) (mL/min/1.73m2) Glucose (74-106) mg/dL Calcium (8.3-10.6) mg/dL Magnesium (1.6-2.6) mg/dL Total Bilirubin (0.2-1.2) mg/dL AST (<34) U/L ALT (10-49) U/L Alkaline Phosphatase (46-116) U/L Troponin I (<35) ng/L Total Protein (5.7-8.2) g/dL Albumin (3.2-5.0) g/dL Lipase (<53) U/L Serum HCG, Qual Urine Opiates Screen (Negative) Urine Methadone Screen (Negative) Ur Barbiturates Screen (Negative) Ur Tricyclics Screen (Negative) Ur Amphetamines Screen (Negative) U Benzodiazepines Scrn (Negative) Urine Cocaine Screen (Negative) U Cannabinoids Screen (Negative) Ethyl Alcohol (<3) mg/dL COVID-19 Source SARS-CoV-2 (PCR) (Negative) Influenza Type A (PCR) (Negative) Influenza Type B (PCR) (Negative) RSV (PCR) (Negative) Add-On Test Request ABO/Rh Antibody Screen 10/09/25 10:25 Blood Culture - Pending Blood 10/09/25 10:10 Blood Culture - Pending Blood Intake and Output - 24 Hour Total 10/09/25 09:19 thru 10/09/25 16:32 Intake Total 951 Balance 951 Weight 61.235 kg Intake: IV 951 Other: Urine Color Dark Ila Urine Appearance Clear Urine Odor None Falls Risk Assessment History of Falls Previous History 10/09/25 16:04 Contributing Factors Unstable 10/09/25 16:04 Ambulatory Aids Independent 10/09/25 16:04 Tubes/Lines None 10/09/25 16:04 Gait Evaluation No gait disturbance 10/09/25 16:04 Cognition No cognitive impairment 10/09/25 16:04 Fall Total Score 18 10/09/25 16:04 Level of Risk Standard/Low Risk 10/09/25 16:04 Problems (Last Updated 09/23/23 @ 08:55 by Ping Rodriguez RN) Community acquired pneumonia (Acute) Thrombocytopenia (Chronic) Acute hypoxic respiratory failure (Acute) Hyperbilirubinemia (Acute) Hypomagnesemia (Acute) Attestation Statement: By documenting the first initial, last name, and credentials of the reporting nurse below, both parties acknowledge that all relevant information regarding the patient handoff has been communicated, and that all questions have been addressed to ensure continuity and safety of care. Additional Patient Information/Comments: Report Given to : Christa, [employer] Patient is a 35 year old female admitted with pneumonia and acute alcohol withdrawal. She has a history of thrombocytopenia, substance abuse, and end stafe alcoholic cirrhosis. Last drink was 24 hours ago. She has a CIWA of 13, is anxious tremulous and feels like she crawling out her skin. She has been having difficulty breathing for 1 month, she was admitted to [facility] for pneumonia 1 month ago and left AMA and has had trouble ever since. She is alert and oriented on 4L of oxygen, on regular diet , telemetry, stand by assist, has voided and LBM 5-6 days ago.
--- NOTE | 2025-10-09 18:54 | W.PC.ACHO ---
Registration Status: ADM IN Primary Language: Preferred Language: ED Information & Data Chief Complaint SOB 10/09/25 10:19 Triage Note Sick for last month, was 10/09/25 09:24 intubated at another hospital, when extubated signed out AMA. Been without oxygen for last month. Requires oxygen for end stage liver failure Medical / Surgical History (Last Updated 09/23/23 @ 08:55 by Ping Rodriguez RN) Palliative care encounter Most Recent Vital Signs Temperature 37.2 C 10/09/25 16:04 Temperature Source Oral 10/09/25 09:28 Pulse 95 H 10/09/25 16:04 Pulse 96 H 10/09/25 15:31 Respiratory Rate 16 10/09/25 16:04 Respiratory Effort Normal 10/09/25 16:04 Respiratory Depth Normal 10/09/25 16:04 Respiratory Pattern Normal 10/09/25 16:04 Blood Pressure 121/65 10/09/25 16:04 Blood Pressure Mean 75 10/09/25 15:31 Blood Pressure Position Sitting 10/09/25 09:28 Pulse Oximetry 91 L 10/09/25 16:04 Oxygen Delivery Method Nasal Cannula 10/09/25 16:04 Oxygen Flow Rate 4.5 10/09/25 16:04 Pain Level 5 10/09/25 16:33 Allergies clindamycin Adverse Reaction (Intermediate, Unverified 09/12/23 10:47) Nausea Precautions Isolation Standard precaution 10/09/25 09:28 IV IV Catheter Type [Left Saline Lock Antecubital] IV Catheter Type [Right Saline Lock Antecubital] IV Catheter Gauge [Left 18 Antecubital] IV Catheter Gauge [Right 18 Antecubital] Diet Orders Category Date Time Status Regular/Normal [DIET] Nutrition 10/09/25 Dinner Active Diagnostics 10/09/25 10/09/25 10/09/25 Range/Units 16:15 13:07 12:10 WBC (4.4-10.8) 10^3/uL RBC (3.93-5.22) 10^6/uL Hgb (11.2-15.7) g/dL Hct (36.0-46.0) % MCV (80-95) fL MCH (27.0-33.0) pg MCHC (32.0-36.0) % RDW (11.7-14.6) % Plt Count (130-400) 10^3/uL MPV (8.0-11.0) fL Immature Gran % % Neutrophils % % Lymphocytes % % Monocytes % % Eosinophils % % Basophils % % Nucleated RBC % (0.0-0.3) % Absolute Neutrophils (1.2-6.7) 10^3/uL Absolute Lymphocytes (1.2-3.4) 10^3/uL Absolute Monocytes (0.1-0.8) 10^3/uL Absolute Eosinophils (0.0-0.7) 10^3/uL Absolute Basophils (0.0-0.2) 10^3/uL RBC Morphology PT 13.8 H (9.1-11.1) sec INR 1.4 H (0.9-1.1) APTT 36.1 H (20.6-30.2) sec D-Dimer (<500) ng/mlFEU VBG pH (7.31-7.41) VBG pCO2 (41-51) mmHg VBG pO2 mmHg VBG HCO3 (23-28) mmol/L VBG Total CO2 (24-29) mmol/L VBG O2 Saturation % VBG Base Excess (-2-3) mmol/L VBG Lactate Sodium (136-145) mmol/L Potassium (3.5-5.1) mmol/L Chloride (98-107) mmol/L Carbon Dioxide (20.0-31.0) mmol/L Anion Gap (3-11) mmol/L BUN (9-23) mg/dL Creatinine (0.55-1.02) mg/dL Est GFR (CKD-EPI 2020) (mL/min/1.73m2) Glucose (74-106) mg/dL Calcium (8.3-10.6) mg/dL Magnesium (1.6-2.6) mg/dL Total Bilirubin (0.2-1.2) mg/dL AST (<34) U/L ALT (10-49) U/L Alkaline Phosphatase (46-116) U/L Troponin I < 3 (<35) ng/L Total Protein (5.7-8.2) g/dL Albumin (3.2-5.0) g/dL Lipase (<53) U/L Serum HCG, Qual Urine Opiates Screen Negative (Negative) Urine Methadone Screen Negative (Negative) Ur Barbiturates Screen Positive A (Negative) Ur Tricyclics Screen Negative (Negative) Ur Amphetamines Screen Negative (Negative) U Benzodiazepines Scrn Negative (Negative) Urine Cocaine Screen Positive A (Negative) U Cannabinoids Screen Negative (Negative) Ethyl Alcohol (<3) mg/dL COVID-19 Source SARS-CoV-2 (PCR) (Negative) Influenza Type A (PCR) (Negative) Influenza Type B (PCR) (Negative) RSV (PCR) (Negative) Add-On Test Request ABO/Rh Antibody Screen 10/09/25 10/09/25 10/09/25 Range/Units 10:35 10:10 09:45 WBC (4.4-10.8) 10^3/uL RBC (3.93-5.22) 10^6/uL Hgb (11.2-15.7) g/dL Hct (36.0-46.0) % MCV (80-95) fL MCH (27.0-33.0) pg MCHC (32.0-36.0) % RDW (11.7-14.6) % Plt Count (130-400) 10^3/uL MPV (8.0-11.0) fL Immature Gran % % Neutrophils % % Lymphocytes % % Monocytes % % Eosinophils % % Basophils % % Nucleated RBC % (0.0-0.3) % Absolute Neutrophils (1.2-6.7) 10^3/uL Absolute Lymphocytes (1.2-3.4) 10^3/uL Absolute Monocytes (0.1-0.8) 10^3/uL Absolute Eosinophils (0.0-0.7) 10^3/uL Absolute Basophils (0.0-0.2) 10^3/uL RBC Morphology PT (9.1-11.1) sec INR (0.9-1.1) APTT (20.6-30.2) sec D-Dimer (<500) ng/mlFEU VBG pH (7.31-7.41) VBG pCO2 (41-51) mmHg VBG pO2 mmHg VBG HCO3 (23-28) mmol/L VBG Total CO2 (24-29) mmol/L VBG O2 Saturation % VBG Base Excess (-2-3) mmol/L VBG Lactate 1.8 Sodium 141 (136-145) mmol/L Potassium 3.4 L (3.5-5.1) mmol/L Chloride 104 (98-107) mmol/L Carbon Dioxide 27.5 (20.0-31.0) mmol/L Anion Gap 9.5 (3-11) mmol/L BUN 6 L (9-23) mg/dL Creatinine 0.48 L (0.55-1.02) mg/dL Est GFR (CKD-EPI 2020) 148.67 (mL/min/1.73m2) Glucose 118 H (74-106) mg/dL Calcium 8.3 (8.3-10.6) mg/dL Magnesium 1.3 L (1.6-2.6) mg/dL Total Bilirubin 3.2 H (0.2-1.2) mg/dL AST 87 H (<34) U/L ALT 37 (10-49) U/L Alkaline Phosphatase 103 (46-116) U/L Troponin I < 3 (<35) ng/L Total Protein 7.2 (5.7-8.2) g/dL Albumin 3.5 (3.2-5.0) g/dL Lipase 29 (<53) U/L Serum HCG, Qual Negative Urine Opiates Screen (Negative) Urine Methadone Screen (Negative) Ur Barbiturates Screen (Negative) Ur Tricyclics Screen (Negative) Ur Amphetamines Screen (Negative) U Benzodiazepines Scrn (Negative) Urine Cocaine Screen (Negative) U Cannabinoids Screen (Negative) Ethyl Alcohol < 3.0 (<3) mg/dL COVID-19 Source Nasopharynx SARS-CoV-2 (PCR) Negative (Negative) Influenza Type A (PCR) Negative (Negative) Influenza Type B (PCR) Negative (Negative) RSV (PCR) Negative (Negative) Add-On Test Request DONE ABO/Rh B Positive Antibody Screen NEGATIVE 10/09/25 Range/Units 09:45 WBC 4.44 (4.4-10.8) 10^3/uL RBC 4.87 (3.93-5.22) 10^6/uL Hgb 13.9 (11.2-15.7) g/dL Hct 41.0 (36.0-46.0) % MCV 84 (80-95) fL MCH 28.5 (27.0-33.0) pg MCHC 33.9 (32.0-36.0) % RDW 17.2 H (11.7-14.6) % Plt Count 42 L (130-400) 10^3/uL MPV 10.9 (8.0-11.0) fL Immature Gran % 0.2 % Neutrophils % 55.0 % Lymphocytes % 33.1 % Monocytes % 7.2 % Eosinophils % 4.3 % Basophils % 0.2 % Nucleated RBC % 0.0 (0.0-0.3) % Absolute Neutrophils 2.44 (1.2-6.7) 10^3/uL Absolute Lymphocytes 1.47 (1.2-3.4) 10^3/uL Absolute Monocytes 0.32 (0.1-0.8) 10^3/uL Absolute Eosinophils 0.19 (0.0-0.7) 10^3/uL Absolute Basophils 0.01 (0.0-0.2) 10^3/uL RBC Morphology Normal PT (9.1-11.1) sec INR (0.9-1.1) APTT (20.6-30.2) sec D-Dimer 1757 H (<500) ng/mlFEU VBG pH 7.44 H (7.31-7.41) VBG pCO2 42 (41-51) mmHg VBG pO2 76 mmHg VBG HCO3 29 H (23-28) mmol/L VBG Total CO2 25 (24-29) mmol/L VBG O2 Saturation 96 % VBG Base Excess 5 H (-2-3) mmol/L VBG Lactate Cancelled Sodium (136-145) mmol/L Potassium (3.5-5.1) mmol/L Chloride (98-107) mmol/L Carbon Dioxide (20.0-31.0) mmol/L Anion Gap (3-11) mmol/L BUN (9-23) mg/dL Creatinine (0.55-1.02) mg/dL Est GFR (CKD-EPI 2020) (mL/min/1.73m2) Glucose (74-106) mg/dL Calcium (8.3-10.6) mg/dL Magnesium (1.6-2.6) mg/dL Total Bilirubin (0.2-1.2) mg/dL AST (<34) U/L ALT (10-49) U/L Alkaline Phosphatase (46-116) U/L Troponin I (<35) ng/L Total Protein (5.7-8.2) g/dL Albumin (3.2-5.0) g/dL Lipase (<53) U/L Serum HCG, Qual Urine Opiates Screen (Negative) Urine Methadone Screen (Negative) Ur Barbiturates Screen (Negative) Ur Tricyclics Screen (Negative) Ur Amphetamines Screen (Negative) U Benzodiazepines Scrn (Negative) Urine Cocaine Screen (Negative) U Cannabinoids Screen (Negative) Ethyl Alcohol (<3) mg/dL COVID-19 Source SARS-CoV-2 (PCR) (Negative) Influenza Type A (PCR) (Negative) Influenza Type B (PCR) (Negative) RSV (PCR) (Negative) Add-On Test Request ABO/Rh Antibody Screen 10/09/25 10:25 Blood Culture - Pending Blood 10/09/25 10:10 Blood Culture - Pending Blood Intake and Output - 24 Hour Total 10/09/25 09:19 thru 10/09/25 18:03 Intake Total 1001.7692 Balance 1001.7692 Weight 61.235 kg Intake: IV 1001.7692 Other: Urine Color Dark Ila Urine Appearance Clear Urine Odor None Falls Risk Assessment History of Falls Previous History 10/09/25 16:04 Contributing Factors Unstable 10/09/25 16:04 Ambulatory Aids Independent 10/09/25 16:04 Tubes/Lines None 10/09/25 16:04 Gait Evaluation No gait disturbance 10/09/25 16:04 Cognition No cognitive impairment 10/09/25 16:04 Fall Total Score 18 10/09/25 16:04 Level of Risk Standard/Low Risk 10/09/25 16:04 Problems (Last Updated 09/23/23 @ 08:55 by Ping Rodriguez RN) Community acquired pneumonia (Acute) Thrombocytopenia (Chronic) Acute hypoxic respiratory failure (Acute) Hyperbilirubinemia (Acute) Hypomagnesemia (Acute) Attestation Statement: By documenting the first initial, last name, and credentials of the reporting nurse below, both parties acknowledge that all relevant information regarding the patient handoff has been communicated, and that all questions have been addressed to ensure continuity and safety of care. Additional Patient Information/Comments: Report Received From: Kasia Taylor
[2025-10-09] MEDS: Lactulose 20 GM/30 ML CUP 40 GM PO (20:33)
[2025-10-09] MEDS: Mirtazapine 15 MG TAB 30 MG PO (20:33)
[2025-10-09] MEDS: Gabapentin 100 MG CAP PO (20:33)
[2025-10-10] VITALS (152 sets, daily range): BP systolic 99–146; BP diastolic 58–88; PULSE 95–121; RESP 12–26; TEMP 37.1–37.5; O2SAT 84–92
[2025-10-10] MEDS: PHENobarbital 130 MG/ML VIAL IVP ×4 (04:17→14:27)
[2025-10-10 06:15] LABS: Abs Immature Grans 0.01 10^3/uL (0.0-0.06); HCT 36.4 % (36.0-46.0); HGB 12.5 g/dL (11.2-15.7); Immature Grans % 0.3 %; MCH 29.6 pg (27.0-33.0); MCHC 34.3 % (32.0-36.0); MCV 86 fL (80-95); MPV 9.5 fL (8.0-11.0); RBC 4.23 10^6/uL (3.93-5.22); RDW 16.9 % (11.7-14.6); RDW-SD 51.2 fL; WBC 3.81 10^3/uL (4.4-10.8)
[2025-10-10 06:19] LABS: Ammonia 82 umol/L (11-32)
[2025-10-10 06:31] LABS: Lipase 31 U/L (<53); Magnesium 1.3 mg/dL (1.6-2.6)
[2025-10-10 06:32] LABS: ALT 32 U/L (10-49); AST 74 U/L (<34); Albumin 2.8 g/dL (3.2-5.0); Alkaline Phosphatase 89 U/L (46-116); Anion Gap 9.4 mmol/L (3-11); BUN 5 mg/dL (9-23); Bilirubin, Total 3.5 mg/dL (0.2-1.2); CO2 27.6 mmol/L (20.0-31.0); Calcium 7.8 mg/dL (8.3-10.6); Chloride 105 mmol/L (98-107); Glucose 147 mg/dL (74-106); Potassium 3.2 mmol/L (3.5-5.1); Sodium 142 mmol/L (136-145); Total Protein 5.8 g/dL (5.7-8.2)
[2025-10-10 07:21] LABS: Platelet Count 32 10^3/uL (130-400); RBC Morphology Normal
[2025-10-10] MEDS: Lactulose 20 GM/30 ML CUP 30 GM PO ×2 (08:37→14:28)
[2025-10-10] MEDS: cefTRIAXone 1 GM/50 ML BAG IVPB (08:37)
[2025-10-10] MEDS: Azithromycin 250 MG TAB 500 MG PO (08:37)
[2025-10-10] MEDS: Gabapentin 100 MG CAP PO ×3 (08:37→19:44)
--- NOTE | 2025-10-10 08:51 | INITIAL_ITS ---
Date of service: 10/10/25 Time of Service: 08:51 Care Management Initial Assmt Initial Assessment Reason for Hospitalization: acute hypoxic respiratory failure Functional Status/Living Situation Patient Presentation: Randi presented to the ED yesterday morning with respiratory complaints and abdominal pain. CT scan showed a left rib fracture. She was noted to by hypoxic, and requiring nc O2. Isabel has a history of end-stage liver disease. She has a shunt in her liver and is a full liver transplant candidate. Isabel is in ICU. She is withdrawing from alcohol and on the phenobarbital protocol in ICU. Her UDS was also positive for cocaine. Isabel was sitting up in the bed, eating a salad, when met with her today. She had a visitor with her, Leon, who did seem to be supporting her. Leon was added to Isabel's [employer]. Isabel stated that she lives in [place], in a camper, with friends. The camper has no heat. Isabel has been in touch with both [facility] and [facility] for housing support. Isabel declined the offer of a power and recovery superintendent today. She stated that she has a assistant women's tennis coach in [place] that she can call. She was reminded that that service is available to her at any time. Town of Residence: [place] Resides with: Other Significant Other/Family: Local (2 children that do not live with her) Natural Supports: Leon, friends Employment Status: Unemployed Instrumental Activities of Daily Living (ADLs): Independent Medications Medication Management: No Issues/Barriers identified Advance Directives Advance Directives: Do you have an Advance Directive: N , 14:27 AD On File at [facility]: N 06/06/22, 14:12 Date Asked 10/09/25 10/09/25, 15:22 AD Date Reviewed COLST On File at [facility] No 10/09/25, 15:22 COLST Date Scanned Code Status Resuscitation Status Full Code Insurance Coverage/Financial Issues Insurance: Medicaid of [place] Care Team Visit Care Team Role Provider Type None None Primary Care Provider NON-[facility] STAFF PHYSICIAN Jena Park Other Providers CONSUMER EDUCATION SPECIALIST Amie Monae, SURJIT, CDCES Other Providers [employer] Linnea Rogel Other Providers CONSUMER EDUCATION SPECIALIST Sydnee Kat Other Providers CONSUMER EDUCATION SPECIALIST Yosef Orta Other Providers OTHER Lily Labounty RN Other Providers CONSUMER EDUCATION SPECIALIST Remington Newton RDN Other Providers [employer] Chante Davies Other Providers CONSUMER EDUCATION SPECIALIST Alex Rick MD Emergency Provider [facility] STAFF PHYSICIAN Adilson Hernandez MD Admit Provider [facility] STAFF PHYSICIAN Attending Provider Discharge Potential Discharge Needs: PCP F/U Appt Anticipated Barriers to Discharge: None Identified Patient/Family Education Needs: Review discharge instructions, discuss Ask Me Three Transportation: Private vehicle Plan: Isabel will discharge home with no new services once she is medically stable. She will again be offered the power and recovery superintendent. Isabel will be encouraged to f/u with her PCP and her specialists and continue per her plan of care. Isabel stated that she will have a private ride home. CM will continue to follow and update the plan as needed. Social Determinants of Health Screening Social Determinants of health last assessed in clinic: 10/10/25 Will the Patient Participate in the Screening?: Yes Do you worry about having a steady place to live?: yes What is your living situation today?: I have housing today, but am worried about losing it Problems where you live: lack of heat and oven or stove not working In the past 12 months, have you had to go without electric, gas, oil or water in your home?: yes 1. Within the past 12 months, we worried whether our food would run out before we got money to buy more.: Don't know/refused 2. Within the past 12 months, the food we bought just didn't last and we didn't have money to get more.: Don't know/refused Has lack of transportation kept you from medical appointments or from doing things needed for daily living?: yes Has anyone in your life made you feel unsafe or unsupported?: no How hard is it for you to pay for the very basics like food, housing, medical care, and heating? Would you say it is:: Very hard Do you want help finding or keeping work or a job?: I do not need or want help If for any reason you need help with day-to-day activities such as bathing, preparing meals, shopping, managing finances, etc., do you get the help you need?: I don?t need any help How often do you feel lonely or isolated from those around you?: Rarely Do you speak a language other than Spanish at home?: No Does the patient want assistance with any of the above?: Yes Health Related Social Needs Health related social needs: inadequate housing (Z59.1), housing instability, housed, with risk of homelessness (Z59.811), transportation insecurity (Z59.82), material hardship(utilities) (Z59.12), problems related to housing/economic circumstances (Z59.89) and feeling lonely/isolated (Z60.8) Health related social needs details: Patient state she needs help with housing, she is living in a camper without [facility] All Active Problems (Updated 10/09/25 @ 19:09 by Adilson Hernandez MD) Cocaine abuse (Acute) Opioid use disorder in remission (Acute) Alcohol dependence (Chronic) End stage liver disease (Chronic) History of seizure due to alcohol withdrawal (Chronic) Alcohol withdrawal syndrome (Acute) Community acquired pneumonia (Acute) Thrombocytopenia (Chronic) Acute hypoxic respiratory failure (Acute) Hyperbilirubinemia (Acute) Hypomagnesemia (Acute) Homelessness (Acute) Substance use disorder (Acute) Alcohol use disorder (Acute) Advance care planning (Acute) Alcoholic hepatitis (Acute) Hypomagnesemia (Acute) Coagulopathy (Chronic) Pancytopenia (Chronic) Abnormal gall bladder diagnostic imaging (Acute) Alcoholic cirrhosis (Chronic) Medical History (Updated 10/09/25 @ 19:09 by Adilson Hernandez MD) Palliative care encounter Social History Smoking/Tobacco Use Status: Current every day Tobacco Type: cigarettes Smoking risk assessment performed?: Yes Alcohol Intake: current Alcohol Intake frequency: 3 or more drinks per day Alcohol type: hard liquor Drug use: Rarely Substance use type: does not use and former substance user Details: drinks a fifth of vodka daily when drinking Housing: homeless Do you feel safe at home: Yes Do you feel safe in your relationship?: Yes
[2025-10-10] MEDS: Normal Saline 50 ML 100 ML ×3 (09:02→14:27)
[2025-10-10] MEDS: Acetaminophen 325 MG TAB 650 MG PO ×3 (09:04→19:43)
--- NOTE | 2025-10-10 11:39 | PHACLINREV_ITS ---
Pharmacy Admission Review Admission Clinical Review Admission Pharmacy Review: Cocaine abuse (Acute) Opioid use disorder in remission (Acute) Alcohol withdrawal syndrome (Acute) Community acquired pneumonia (Acute) Acute hypoxic respiratory failure (Acute) Hyperbilirubinemia (Acute) Hypomagnesemia (Acute) Hypomagnesemia (Acute) clindamycin Adverse Reaction (Intermediate, Unverified 09/12/23 10:47) Nausea Resuscitation Status Full Code Height 5 ft 4 in Weight 71.2 kg Pharmacy Admission Review Renal Dosing Renal Dosing: BUN 5 mg/dL (9-23) L 10/10/25 05:47 Creatinine 0.43 mg/dL (0.55-1.02) L 10/10/25 05:47 Medications needing adjustments: Reviewed (CrCl 179.35 mL/min) List of meds needing interventions: Current medications are okay Anticoagulation Anticoagulation: Hgb 12.5 g/dL (11.2-15.7) 10/10/25 05:47 Hct 36.4 % (36.0-46.0) 10/10/25 05:47 Plt Count 32 10^3/uL (130-400) L 10/10/25 05:47 INR 1.4 (0.9-1.1) H 10/09/25 12:10 Creatinine 0.43 mg/dL (0.55-1.02) L 10/10/25 05:47 DVT Prophylaxis: Reviewed (Per H+P holding DVT prophylaxis due to thrombocytopenia) Relevant Labs Relevant Labs: Sodium 142 mmol/L (136-145) 10/10/25 05:47 Potassium 3.2 mmol/L (3.5-5.1) L 10/10/25 05:47 Chloride 105 mmol/L (98-107) 10/10/25 05:47 Magnesium 1.3 mg/dL (1.6-2.6) L 10/10/25 05:47 Electrolytes, C-Reactive P, ESR: Intervened (received Mg 2gm IV infusion yesterday - spoke to provider about ordering daily PO (takes at home) - provider looking into it) Cardiac Review Cardiac Review: Troponin I < 3 ng/L (<35) 10/09/25 13:07 BP, HR, EF%: Reviewed (BP WNL, HR 101, Ox 88, oxygen flow rate = 4) QTc Review QTc: Reviewed (474 from 10/09/25) IV to PO Switch IV Medications: Reviewed (ceftriaxone and phenobarbital) Home Meds Home Med List reviewed: Intervened Relevent Home Meds Not ordered & why?: albuterol HFA inhaler (PRN), folic acid and magnesium Reached out to provider regarding magnesium - level 1.3 this morning. Provider looking into it. Current Meds Current Medication Order Review: Intervened Comments: Phenobarbital for ETOH withdrawal Soft stop: 837.75mg Hard stop: 1117mg [facility] 13 @ 0905 Total current dose: 590mg Changed lactulose order from 40g BID to 30g TID based on home med list Pharmacy Antibiotic Review Relevant Labs: WBC 3.81 10^3/uL (4.4-10.8) L 10/10/25 05:47 Temperature 37.1 C Pharmacy Antibiotic Activity: C/S review and Reviewed, no change Comments: Patient is on ceftriaxone and PO azithromycin, day 1, for CAP. Blood cultures pending.
--- NOTE | 2025-10-10 14:55 | W.PM.PROGNOT ---
Date of Service Date of service: 10/10/25 Time of Service: 08:00 Assessment and Plan Assessment and plan (1) Acute hypoxic respiratory failure: Status: Acute Assessment and plan: Currently little evidence of infectious cause, will continue antibiotics for CAP Chronic hypoxemia requiring home O2, patient ran out a month ago Admit to ICU (for phenobarbital) on cardiac monitoring and continuous pulse oximetry Continuing to need NC4L on hospital day 2 PRN bronchodilators (2) Cocaine abuse: Status: Acute Assessment and plan: UDS positive for cocaine Monitor on telemetry, no beta blockers (3) Alcohol withdrawal syndrome: Status: Acute Assessment and plan: CIWA scoring with phenobarbital protocol, started in ED ICU appropriate (4) History of seizure due to alcohol withdrawal: Status: Chronic Assessment and plan: Seizure precautions (5) Hypomagnesemia: Status: Acute Assessment and plan: Monitor for response to repletion (6) End stage liver disease: Status: Chronic Assessment and plan: Patient reportedly is on liver transplant list Actively drinking Hyperammonemia (7) Alcohol dependence: Status: Chronic Assessment and plan: Noted (8) Thrombocytopenia: Status: Chronic Assessment and plan: Less severe than during prior hospitalizations No plan to give platelets above 10k, monitor Hold VTE chemoprophylaxis (9) Opioid use disorder in remission: Status: Acute Assessment and plan: Previously on methadone and suboxone UDS negative for methadone and opioids PROPOSAL SPECIALIST with last suboxne in March Subjective Subjective Interval history since last seen: Ms. Sarah continues to have agitation requiring sedation with phenobarbital Exam Narrative Exam Narrative: General: This is a pleasant, disheveled, chronically ill-appearing woman in no distress HEENT: Normocephalic, atraumatic. Nonicteric. CV: RRR Resp: CTAB Abd: soft, NTND MSK: voluntary motion x4 Neuro: awake, alert, no focal deficits Objective Last Vital Signs Temp 37.5 C 10/10/25 12:09 Pulse 118 H 10/10/25 14:01 Resp 20 10/10/25 14:30 BP 146/87 H 10/10/25 14:01 Pulse Ox 90 L 10/10/25 14:30 Laboratory Results - last 24 hr 10/09/25 10/10/25 16:15 05:47 WBC 3.81 L RBC 4.23 Hgb 12.5 Hct 36.4 MCV 86 MCH 29.6 MCHC 34.3 RDW 16.9 H Plt Count 32 L MPV 9.5 Immature Gran % 0.3 Neutrophils % 58.2 Lymphocytes % 32.3 Monocytes % 5.0 Eosinophils % 3.9 Basophils % 0.3 Nucleated RBC % 0.0 Absolute Neutrophils 2.22 Absolute Lymphocytes 1.23 Absolute Monocytes 0.19 Absolute Eosinophils 0.15 Absolute Basophils 0.01 RBC Morphology Normal Sodium 142 Potassium 3.2 L Chloride 105 Carbon Dioxide 27.6 Anion Gap 9.4 BUN 5 L Creatinine 0.43 L Est GFR (CKD-EPI 2020) 168.79 Glucose 147 H Calcium 7.8 L Magnesium 1.3 L Total Bilirubin 3.5 H AST 74 H ALT 32 Alkaline Phosphatase 89 Ammonia 82 H Total Protein 5.8 Albumin 2.8 L Lipase 31 Urine Opiates Screen Negative Urine Methadone Screen Negative Ur Barbiturates Screen Positive A Ur Tricyclics Screen Negative Ur Amphetamines Screen Negative U Benzodiazepines Scrn Negative Urine Cocaine Screen Positive A U Cannabinoids Screen Negative PAWSS Have you Been Recently Intoxicated or Drunk Within the Last 30 days?: Yes Have you Ever Experienced Previous Episodes of Alcohol Withdrawal?: Yes Have you ever Experienced Withdrawal Seizures?: Yes Have you ever Experienced Delirium Tremens(DT)s?: Yes Have you ever undergone Alcohol Rehabilitation Treatment (i.e, inpt ot outpatient treatment programs)?: Yes Have you ever Experienced Blackouts?: No Have you ever Combined Alcohol with other Downers within the last 90 days?: No Have you ever Combined Alcohol with any other Substance of Abuse during the last 90 days?: No Positive Blood Alcohol level on Presentation? [PCS.BAL]: Yes Evidence of Increased Autonomic Activity (i.e. HR>120, tremor, sweating, agitation, nausea)?: Yes Result: 7 VTE Prohylaxis Risk Level: Moderate/High Risk Contraindications: Medical contrainidcation (thrombocytopenia) Prophylaxis: Mechanical Time Spent with Patient Time Spent with Patient: 35-49 minutes Time was spent: preparing to see the patient(eg.review tests), obtaining and/or reviewing separately otained hiistory, ordering medications,tests, procedures, referring, communicating with other health behavioral health care coordinator, indepentently interpreting results, counseling the patient and care coordination
[2025-10-10] MEDS: Mirtazapine 15 MG TAB 30 MG PO (19:43)
[2025-10-10] MEDS: MAGNESIUM SULFATE 2 GM/50 ML BAG IV_INF (19:45)
[2025-10-11] VITALS (33 sets, daily range): BP systolic 104–145; BP diastolic 62–110; PULSE 88–115; RESP 12–24; TEMP 36.4–37.9; O2SAT 83–91
[2025-10-11 07:21] LABS: Abs Immature Grans 0.01 10^3/uL (0.0-0.06); HCT 38.1 % (36.0-46.0); HGB 12.6 g/dL (11.2-15.7); Immature Grans % 0.2 %; MCH 28.4 pg (27.0-33.0); MCHC 33.1 % (32.0-36.0); MCV 86 fL (80-95); RBC 4.44 10^6/uL (3.93-5.22); RDW 17.1 % (11.7-14.6); RDW-SD 52.3 fL; WBC 4.12 10^3/uL (4.4-10.8)
[2025-10-11 08:14] LABS: Platelet Count 34 10^3/uL (130-400)
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
[2025-10-11] MEDS: Gabapentin 100 MG CAP PO ×3 (08:20→20:04)
[2025-10-11] MEDS: cefTRIAXone 1 GM/50 ML BAG IVPB (08:20)
[2025-10-11] MEDS: Azithromycin 250 MG TAB 500 MG PO (08:20)
[2025-10-11] MEDS: Lactulose 20 GM/30 ML CUP 30 GM PO ×3 (08:21→20:04)
[2025-10-11 08:25] LABS: ALT 41 U/L (10-49); AST 102 U/L (<34); Albumin 2.9 g/dL (3.2-5.0); Alkaline Phosphatase 89 U/L (46-116); Anion Gap 9.8 mmol/L (3-11); BUN < 5 mg/dL (9-23); Bilirubin, Total 3.5 mg/dL (0.2-1.2); CO2 27.2 mmol/L (20.0-31.0); Calcium 8.0 mg/dL (8.3-10.6); Chloride 105 mmol/L (98-107); Glucose 129 mg/dL (74-106); Potassium 3.4 mmol/L (3.5-5.1); Sodium 142 mmol/L (136-145); Total Protein 6.3 g/dL (5.7-8.2)
[2025-10-11 09:25] LABS: Magnesium 1.4 mg/dL (1.6-2.6)
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
[2025-10-11] MEDS: Normal Saline Flush 10 ML SYR IVP ×2 (11:30→20:04)
--- NOTE | 2025-10-11 11:34 | W.PC.ACHO ---
Registration Status: ADM IN Primary Language: Preferred Language: ED Information & Data Chief Complaint SOB 10/09/25 10:19 Triage Note Sick for last month, was 10/09/25 09:24 intubated at another hospital, when extubated signed out AMA. Been without oxygen for last month. Requires oxygen for end stage liver failure Medical / Surgical History (Last Updated 09/23/23 @ 08:55 by Ping Rodriguez RN) Palliative care encounter Most Recent Vital Signs Temperature 37.1 C 10/11/25 08:25 Temperature Source Temporal Artery Scan 10/11/25 08:25 Pulse 98 H 10/11/25 10:00 Pulse 104 H 10/11/25 10:00 Respiratory Rate 19 10/11/25 10:00 Respiratory Effort Incrsd Work of Breathing 10/09/25 17:10 Respiratory Depth Normal 10/09/25 17:10 Respiratory Pattern Normal 10/09/25 17:10 Blood Pressure 128/110 H 10/11/25 10:00 Blood Pressure Mean 118 10/11/25 10:00 Blood Pressure Position Supine 10/09/25 17:10 Pulse Oximetry 89 L 10/11/25 10:00 Oxygen Delivery Method Nasal Cannula 10/11/25 08:13 Oxygen Flow Rate 4 10/11/25 08:13 Pain Level 2 10/10/25 14:28 Comment 4L of O2 via NC 10/10/25 22:00 Allergies clindamycin Adverse Reaction (Intermediate, Unverified 09/12/23 10:47) Nausea Precautions Isolation Standard precaution 10/09/25 09:28 Active Medications Generic Name Dose Route Start Last Admin Trade Name Freq PRN Reason Stop Dose Admin Acetaminophen 650 mg 10/09/25 14:41 10/10/25 19:43 Acetaminophen 325 Mg Tab PO 650 mg Q4H PRN PRN Administration Azithromycin 500 mg 10/10/25 08:30 10/11/25 08:20 Azithromycin 250 Mg Tab PO 500 mg DAILY ALEENA Administration Gabapentin 100 mg 10/09/25 20:00 10/11/25 08:20 Gabapentin 100 Mg Cap PO 100 mg TID ALEENA Administration Ceftriaxone Sodium/Dextrose 1 gm in 50 mls @ 100 mls/hr 10/10/25 08:00 10/11/25 08:55 Rocephin IVPB Infused Q24H ALEENA Infusion Lactulose 30 gm 10/10/25 08:30 10/11/25 08:21 Lactulose 20 Gm/30 Ml Cup PO 30 gm TID ALEENA Administration Mirtazapine 30 mg 10/09/25 20:00 10/10/25 19:43 Mirtazapine 15 Mg Tab PO 30 mg HS ALEENA Administration Phenobarbital Sodium 130 mg 10/09/25 16:50 10/10/25 14:27 Phenobarbital 130 Mg/Ml Vial IVP 130 mg DIRECTED PRN Administration for mild anxiety/agitation Sodium Chloride 0 ml 10/10/25 19:41 10/11/25 11:30 Normal Saline Flush 10 Ml Syr IVP 40 ml PRN PRN Administration IV IV Catheter Type [Left Saline Lock Antecubital] IV Catheter Type [Right Saline Lock Antecubital] IV Catheter Gauge [Left 18 Antecubital] IV Catheter Gauge [Right 18 Antecubital] Diagnostics 10/11/25 Range/Units 05:30 WBC 4.12 L (4.4-10.8) 10^3/uL RBC 4.44 (3.93-5.22) 10^6/uL Hgb 12.6 (11.2-15.7) g/dL Hct 38.1 (36.0-46.0) % MCV 86 (80-95) fL MCH 28.4 (27.0-33.0) pg MCHC 33.1 (32.0-36.0) % RDW 17.1 H (11.7-14.6) % Plt Count 34 L (130-400) 10^3/uL MPV (8.0-11.0) fL Immature Gran % 0.2 % Neutrophils % 60.0 % Lymphocytes % 30.1 % Monocytes % 5.1 % Eosinophils % 4.4 % Basophils % 0.2 % Nucleated RBC % 0.0 (0.0-0.3) % Absolute Neutrophils 2.47 (1.2-6.7) 10^3/uL Absolute Lymphocytes 1.24 (1.2-3.4) 10^3/uL Absolute Monocytes 0.21 (0.1-0.8) 10^3/uL Absolute Eosinophils 0.18 (0.0-0.7) 10^3/uL Absolute Basophils 0.01 (0.0-0.2) 10^3/uL Sodium 142 (136-145) mmol/L Potassium 3.4 L (3.5-5.1) mmol/L Chloride 105 (98-107) mmol/L Carbon Dioxide 27.2 (20.0-31.0) mmol/L Anion Gap 9.8 (3-11) mmol/L BUN < 5 L (9-23) mg/dL Creatinine 0.36 L (0.55-1.02) mg/dL Est GFR (CKD-EPI 2020) 207.20 (mL/min/1.73m2) Glucose 129 H (74-106) mg/dL Calcium 8.0 L (8.3-10.6) mg/dL Magnesium 1.4 L (1.6-2.6) mg/dL Total Bilirubin 3.5 H (0.2-1.2) mg/dL AST 102 H (<34) U/L ALT 41 (10-49) U/L Alkaline Phosphatase 89 (46-116) U/L Total Protein 6.3 (5.7-8.2) g/dL Albumin 2.9 L (3.2-5.0) g/dL 10/09/25 10:25 Blood Culture - Preliminary Blood NO GROWTH 24 HOURS 10/09/25 10:10 Blood Culture - Preliminary Blood NO GROWTH 24 HOURS Intake and Output - 24 Hour Total 10/09/25 09:19 thru 10/11/25 10:41 Intake Total 2652.5384 Output Total 2850 Balance -197.4616 Weight 69.1 kg Intake: IV 1162.5384 Oral 1490 Output: Urine 2850 Other: Urine Color Dark Ila Urine Appearance Clear Urine Odor Normal Falls Risk Assessment History of Falls Previous History 10/09/25 17:10 Contributing Factors Unstable 10/09/25 17:10 Ambulatory Aids Independent 10/09/25 17:10 Tubes/Lines None 10/09/25 17:10 Gait Evaluation No gait disturbance 10/09/25 17:10 Cognition No cognitive impairment 10/09/25 17:10 Fall Total Score 18 10/09/25 17:10 Level of Risk Standard/Low Risk 10/09/25 17:10 Problems (Last Updated 09/23/23 @ 08:55 by Ping Rodriguez RN) Cocaine abuse (Acute) Opioid use disorder in remission (Acute) Alcohol dependence (Chronic) End stage liver disease (Chronic) History of seizure due to alcohol withdrawal (Chronic) Alcohol withdrawal syndrome (Acute) Community acquired pneumonia (Acute) Thrombocytopenia (Chronic) Acute hypoxic respiratory failure (Acute) Hyperbilirubinemia (Acute) Hypomagnesemia (Acute) Hypomagnesemia (Acute) Notes 10/11/25 08:16 Respiratory by Roseline Martinez Pt advised she wears 3L at baseline at rest/sleep and 8L oxymizer with ambulation. DME was [employer] but her landlord had thrown out all her supplies and she hasn't been compliant since (unable to provide RT with timeframe for how long its been) Initialized on 10/11/25 08:16 - END OF NOTE Attestation Statement: By documenting the first initial, last name, and credentials of the reporting nurse below, both parties acknowledge that all relevant information regarding the patient handoff has been communicated, and that all questions have been addressed to ensure continuity and safety of care. Additional Patient Information/Comments: Report Received From: [facility] at 1130
--- NOTE | 2025-10-11 13:21 | CMPROGNOTE_ITS ---
Date of service: 10/11/25 Time of Service: 13:21 Care Management Progress Note Progress Note Text Progress Note Text: Isabel was sitting cross-legged on the bed, eating lunch, when CM met with her today. She was polite, but not very interested in talking. Isabel is in a camper with friends. It does have electricity, but no heat and is not weather-proofed. She believes that she will be able to run an O2 concentrator in there. RT is working with [employer] to see if Isabel will be able to get another concentrator. Isabel lost her last concentrator when it was thrown out by her land lord. Isabel stated again to CM that she is in need of new housing. She is aware of [facility] and also [facility]. CM spoke to the community health care marketing specialist, Florina, at her PCP office. CM relayed some basic info and asked that [facility] follow up with her. [facility] revealed that Isabel has not been seen in her PCP office in about a year. She has cancelled and no-showed 3 appointments and 1 scan since last seen in the office. [facility] recommended that a f/u appt be made for her when she is in office. Appointment made for 10/20 at 2:40. She will meet with her PCP and with the community care team. Discharge Potential Discharge Needs: PCP F/U Appt Anticipated Barriers to Discharge: None Identified Patient/Family Education Needs: Review discharge instructions, discuss Ask Me Three Transportation: Private vehicle Plan: Isabel will discharge home once medically stable. She will f/u with her PCP on 10/20 at 2:40pm, and will also meet with the Community Care Team at that visit. Isabel will continue per her plan of care, and transport home in a private vehicle with a friend. CM will continue to follow and update the plan as needed. Social Determinants of Health Screening Social Determinants of health last assessed in clinic: 10/11/25 Will the Patient Participate in the Screening?: Yes Do you worry about having a steady place to live?: yes What is your living situation today?: I have housing today, but am worried about losing it Problems where you live: lack of heat and oven or stove not working In the past 12 months, have you had to go without electric, gas, oil or water in your home?: yes 1. Within the past 12 months, we worried whether our food would run out before we got money to buy more.: Don't know/refused 2. Within the past 12 months, the food we bought just didn't last and we didn't have money to get more.: Don't know/refused Has lack of transportation kept you from medical appointments or from doing things needed for daily living?: yes Has anyone in your life made you feel unsafe or unsupported?: no How hard is it for you to pay for the very basics like food, housing, medical care, and heating? Would you say it is:: Very hard Do you want help finding or keeping work or a job?: I do not need or want help If for any reason you need help with day-to-day activities such as bathing, preparing meals, shopping, managing finances, etc., do you get the help you ne ed?: I don?t need any help How often do you feel lonely or isolated from those around you?: Rarely Do you speak a language other than [place]an at home?: No Does the patient want assistance with any of the above?: Yes Health Related Social Needs Health related social needs: inadequate housing (Z59.1), housing instability, housed, with risk of homelessness (Z59.811), transportation insecurity (Z59.82), material hardship(utilities) (Z59.12), problems related to housing/economic circumstances (Z59.89) and feeling lonely/isolated (Z60.8) Health related social needs details: Patient state she needs help with housing, she is living in a camper without heat
[2025-10-11] MEDS: LORazepam 1 MG TAB PO/SL (14:02)
--- NOTE | 2025-10-11 14:50 | PT.INNT ---
PT Notes Visit Reasons: Respiratory Failure pt in bed sleeping when approached for therapy this afternoon, pt having a difficult time staying awake, pt nurse has just given Ativan with afternoon meds.
--- NOTE | 2025-10-11 19:54 | W.PM.PROGNOT ---
Date of Service Date of service: 10/11/25 Time of Service: 08:00 Assessment and Plan Assessment and plan (1) Acute hypoxic respiratory failure: Status: Acute Assessment and plan: Currently little evidence of infectious cause, will continue antibiotics for CAP Chronic hypoxemia requiring home O2, patient ran out a month ago Admit to ICU (for phenobarbital) on cardiac monitoring and continuous pulse oximetry Continuing to need NC4L on hospital day 2 PRN bronchodilators (2) Cocaine abuse: Status: Acute Assessment and plan: UDS positive for cocaine Monitor on telemetry, no beta blockers (3) Alcohol withdrawal syndrome: Status: Acute Assessment and plan: CIWA scoring with phenobarbital protocol, started in ED Oct 11 off phenobarbital, downgraded to the floor PRN PO benzodiazepines (4) History of seizure due to alcohol withdrawal: Status: Chronic Assessment and plan: Seizure precautions (5) Hypomagnesemia: Status: Acute Assessment and plan: Monitor for response to repletion (6) End stage liver disease: Status: Chronic Assessment and plan: Patient reportedly is on liver transplant list Actively drinking Hyperammonemia (7) Alcohol dependence: Status: Chronic Assessment and plan: Noted (8) Thrombocytopenia: Status: Chronic Assessment and plan: Less severe than during prior hospitalizations No plan to give platelets above 10k, monitor Hold VTE chemoprophylaxis (9) Opioid use disorder in remission: Status: Acute Assessment and plan: Previously on methadone and suboxone UDS negative for methadone and opioids [employer]IPP[employer] PA[employer] with last suboxne in March Exam Narrative Exam Narrative: General: This is a pleasant, disheveled, chronically ill-appearing woman in no distress HEENT: Normocephalic, atraumatic. Nonicteric. CV: RRR Resp: CTAB Abd: soft, NTND MSK: voluntary motion x4 Neuro: awake, alert, no focal deficits Objective Last Vital Signs Temp 37.6 C H 10/11/25 16:45 Pulse 111 H 10/11/25 16:45 Resp 16 10/11/25 16:45 BP 117/82 10/11/25 16:45 Pulse Ox 89 L 10/11/25 16:45 Laboratory Results - last 24 hr 10/11/25 05:30 WBC 4.12 L RBC 4.44 Hgb 12.6 Hct 38.1 MCV 86 MCH 28.4 MCHC 33.1 RDW 17.1 H Plt Count 34 L MPV Immature Gran % 0.2 Neutrophils % 60.0 Lymphocytes % 30.1 Monocytes % 5.1 Eosinophils % 4.4 Basophils % 0.2 Nucleated RBC % 0.0 Absolute Neutrophils 2.47 Absolute Lymphocytes 1.24 Absolute Monocytes 0.21 Absolute Eosinophils 0.18 Absolute Basophils 0.01 Sodium 142 Potassium 3.4 L Chloride 105 Carbon Dioxide 27.2 Anion Gap 9.8 BUN < 5 L Creatinine 0.36 L Est GFR (CKD-EPI 2020) 207.20 Glucose 129 H Calcium 8.0 L Magnesium 1.4 L Total Bilirubin 3.5 H AST 102 H ALT 41 Alkaline Phosphatase 89 Total Protein 6.3 Albumin 2.9 L PAWSS Have you Been Recently Intoxicated or Drunk Within the Last 30 days?: Yes Have you Ever Experienced Previous Episodes of Alcohol Withdrawal?: Yes Have you ever Experienced Withdrawal Seizures?: Yes Have you ever Experienced Delirium Tremens(DT)s?: Yes Have you ever undergone Alcohol Rehabilitation Treatment (i.e, inpt ot outpatient treatment programs)?: Yes Have you ever Experienced Blackouts?: No Have you ever Combined Alcohol with other Downers within the last 90 days?: No Have you ever Combined Alcohol with any other Substance of Abuse during the last 90 days?: No Positive Blood Alcohol level on Presentation? [PCS.BAL]: Yes Evidence of Increased Autonomic Activity (i.e. HR>120, tremor, sweating, agitation, nausea)?: Yes Result: 7 VTE Prohylaxis Risk Level: Moderate/High Risk Contraindications: Medical contrainidcation (thrombocytopenia) Prophylaxis: Mechanical Time Spent with Patient Time Spent with Patient: 25-34 minutes Time was spent: preparing to see the patient(eg.review tests), obtaining and/or reviewing separately otained hiistory, ordering medications,tests, procedures, referring, communicating with other health career development coordinator, indepentently interpreting results, counseling the patient and care coordination
[2025-10-11] MEDS: Mirtazapine 15 MG TAB 30 MG PO (20:04)
[2025-10-12] VITALS (11 sets, daily range): BP systolic 136–166; BP diastolic 68–100; PULSE 105–115; RESP 16–18; TEMP 37–38.6; O2SAT 86–95
[2025-10-12] MEDS: LORazepam 1 MG TAB PO/SL ×3 (01:28→16:01)
[2025-10-12 08:07] LABS: Abs Immature Grans 0.03 10^3/uL (0.0-0.06); HCT 38.2 % (36.0-46.0); HGB 12.9 g/dL (11.2-15.7); Immature Grans % 0.7 %; MCH 28.9 pg (27.0-33.0); MCHC 33.8 % (32.0-36.0); MCV 86 fL (80-95); MPV 9.7 fL (8.0-11.0); RBC 4.47 10^6/uL (3.93-5.22); RDW 17.1 % (11.7-14.6); RDW-SD 52.3 fL; WBC 4.36 10^3/uL (4.4-10.8)
[2025-10-12] MEDS: Lactulose 20 GM/30 ML CUP 30 GM PO ×2 (09:46→14:49)
[2025-10-12] MEDS: cefTRIAXone 1 GM/50 ML BAG IVPB (09:46)
[2025-10-12] MEDS: Gabapentin 100 MG CAP PO ×3 (09:47→20:07)
--- NOTE | 2025-10-12 10:24 | PDOC.CMPRO ---
Date of service: 10/12/25 Time of Service: 10:24 Care Management Progress Note Progress Note Text Progress Note Text: Isabel is being closely monitored and treated for hypoxic respiratory failure and will need new home O2 on discharge. She is also being treated for ETOH withdraw and has not been awake enough to meet with CM today. Per report, she lives in a camper with friends, which reportedly has electricity, but no heat and is not weather-proofed but believes that she will be able to run an O2 concentrator in there. [employer] previously set her up with a concentrator, which pt reports was thrown out by an old landlord. RT has tried to coordinate new home O2 for this patient without success due to her having a bill with them for an unknown amount. The billing number Surgient gave Roseline at RT is [phone]. CM will attempt to meet with Isabel again tomorrow, but also sent a referral for [facility] for support with community needs and possible funding to help with her bill. . Discharge Potential Discharge Needs: PCP F/U Appt Anticipated Barriers to Discharge: None Identified Patient/Family Education Needs: Review discharge instructions, discuss Ask Me Three Transportation: Private vehicle Plan: Isabel will discharge home once medically stable, possibly with new home O2. She will f/u with her PCP on 10/20 at 2:40pm, and will also meet with the Community Care Team at that visit. Isabel will continue per her plan of care, and transport home in a private vehicle with a friend. CM will continue to follow and update the plan as needed. Social Determinants of Health Screening Social Determinants of health last assessed in clinic: 10/12/25 Will the Patient Participate in the Screening?: Yes Do you worry about having a steady place to live?: yes What is your living situation today?: I have housing today, but am worried about losing it Problems where you live: lack of heat and oven or stove not working In the past 12 months, have you had to go without electric, gas, oil or water in your home?: yes 1. Within the past 12 months, we worried whether our food would run out before we got money to buy more.: Never true 2. Within the past 12 months, the food we bought just didn't last and we didn't have money to get more.: Never true Has lack of transportation kept you from medical appointments or from doing things needed for daily living?: yes Has anyone in your life made you feel unsafe or unsupported?: no How hard is it for you to pay for the very basics like food, housing, medical care, and heating? Would you say it is:: Very hard Do you want help finding or keeping work or a job?: I do not need or want help If for any reason you need help with day-to-day activities such as bathing, preparing meals, shopping, managing finances, etc., do you get the help you need?: I don?t need any help How often do you feel lonely or isolated from those around you?: Rarely Do you speak a language other than Monegasque at home?: No Does the patient want assistance with any of the above?: Yes Health Related Social Needs Health related social needs: inadequate housing (Z59.1), housing instability, housed, with risk of homelessness (Z59.811), transportation insecurity (Z59.82), material hardship(utilities) (Z59.12), problems related to housing/economic circumstances (Z59.89) and feeling lonely/isolated (Z60.8) Health related social needs details: Patient state she needs help with housing, she is living in a camper without heat
[2025-10-12 10:34] LABS: Anisocytosis 1+; Microcytosis 1+; Platelet Count 37 10^3/uL (130-400)
[2025-10-12] MEDS: Ondansetron O.D.T. 4 MG TABEF PO (10:50)
--- NOTE | 2025-10-12 14:24 | PT.INNT ---
PT Notes Visit Reasons: Respiratory Failure Pt has been approached multiple times during the course of the day. pt not up to participating with therapy session, pt was emetic and was projectile vomiting last 11:30am. pt requested to stay in bed to avoid having another episode of vomiting. only wanted chips of ice which was provided by this therapist.
--- NOTE | 2025-10-12 19:58 | PGE_ITS ---
Date of Service Date of service: 10/12/25 Time of Service: 08:00 Assessment and Plan Assessment and plan (1) Acute hypoxic respiratory failure: Status: Acute Assessment and plan: Currently little evidence of infectious cause, will continue antibiotics for CAP Chronic hypoxemia requiring home O2, patient ran out a month ago Admit to ICU (for phenobarbital) on cardiac monitoring and continuous pulse oximetry Continuing to need NC4L on hospital day 2 PRN bronchodilators Patient will need home O2 but has social/financial barriers (2) Cocaine abuse: Status: Acute Assessment and plan: UDS positive for cocaine Off telemetry Oct 12 (3) Alcohol withdrawal syndrome: Status: Acute Assessment and plan: CIWA scoring with phenobarbital protocol, started in ED Oct 11 off phenobarbital, downgraded to the floor PRN PO benzodiazepines (4) History of seizure due to alcohol withdrawal: Status: Chronic Assessment and plan: Seizure precautions (5) Hypomagnesemia: Status: Acute Assessment and plan: Monitor for response to repletion (6) End stage liver disease: Status: Chronic Assessment and plan: Patient reportedly is on liver transplant list Actively drinking Hyperammonemia (7) Alcohol dependence: Status: Chronic Assessment and plan: Noted (8) Thrombocytopenia: Status: Chronic Assessment and plan: Less severe than during prior hospitalizations No plan to give platelets above 10k, monitor Hold VTE chemoprophylaxis (9) Opioid use disorder in remission: Status: Acute Assessment and plan: Previously on methadone and suboxone 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 Sarah is not agitated but she is nauseous. She feels better today. Exam Narrative Exam Narrative: General: This is a pleasant, disheveled, chronically ill-appearing woman in no distress HEENT: Normocephalic, atraumatic. Nonicteric. CV: RRR Resp: CTAB Abd: soft, NTND MSK: voluntary motion x4 Neuro: awake, alert, no focal deficits Objective Last Vital Signs Temp 37.2 C 10/12/25 19:17 Pulse 105 H 10/12/25 19:17 Resp 16 10/12/25 19:17 BP 155/96 H 10/12/25 19:17 Pulse Ox 91 L 10/12/25 19:17 Laboratory Results - last 24 hr 12/18/25 06:30 WBC 4.36 L RBC 4.47 Hgb 12.9 Hct 38.2 MCV 86 MCH 28.9 MCHC 33.8 RDW 17.1 H Plt Count 37 L MPV 9.7 Immature Gran % 0.7 Neutrophils % 71.6 Lymphocytes % 19.7 Monocytes % 5.7 Eosinophils % 2.1 Basophils % 0.2 Nucleated RBC % 0.0 Absolute Neutrophils 3.12 Absolute Lymphocytes 0.86 L Absolute Monocytes 0.25 Absolute Eosinophils 0.09 Absolute Basophils 0.01 RBC Morphology See Below Anisocytosis 1+ Microcytosis 1+ PAWSS Have you Been Recently Intoxicated or Drunk Within the Last 30 days?: Yes Have you Ever Experienced Previous Episodes of Alcohol Withdrawal?: Yes Have you ever Experienced Withdrawal Seizures?: Yes Have you ever Experienced Delirium Tremens(DT)s?: Yes Have you ever undergone Alcohol Rehabilitation Treatment (i.e, inpt ot ou tpatient treatment programs)?: Yes Have you ever Experienced Blackouts?: No Have you ever Combined Alcohol with other Downers within the last 90 days?: No Have you ever Combined Alcohol with any other Substance of Abuse during the last 90 days?: No Positive Blood Alcohol level on Presentation? [PCS.BAL]: Yes Evidence of Increased Autonomic Activity (i.e. HR>120, tremor, sweating, agitation, nausea)?: Yes Result: 7 VTE Prohylaxis Risk Level: Moderate/High Risk Contraindications: Medical contrainidcation (thrombocytopenia) Prophylaxis: Mechanical Time Spent with Patient Time Spent with Patient: 25-34 minutes Time was spent: preparing to see the patient(eg.review tests), obtaining and/or reviewing separately [facility] hiistory, ordering medications,tests, procedures, referring, communicating with other health child day care center worker, indepentently interpreting results, counseling the patient and care coordination
[2025-10-12] MEDS: MAGNESIUM SULFATE 2 GM/50 ML BAG IV_INF (20:07)
[2025-10-12] MEDS: Mirtazapine 15 MG TAB 30 MG PO (20:07)
[2025-10-12] MEDS: Normal Saline Flush 10 ML SYR IVP (20:08)
[2025-10-13] VITALS (10 sets, daily range): BP systolic 113–146; BP diastolic 69–98; PULSE 110–120; RESP 14–16; TEMP 36–37.8; O2SAT 85–93
[2025-10-13] MEDS: Lactulose 20 GM/30 ML CUP 30 GM PO ×2 (08:19→14:18)
[2025-10-13] MEDS: Gabapentin 100 MG CAP PO ×3 (08:20→20:36)
--- NOTE | 2025-10-13 10:28 | TELEFU_ITS ---
Documented by User: Mandeep Cuellar 10/13/25 10:38 Date of service: 10/13/25 Time of Service: 10:33 Nutrition Note NOTE: Attempted to visit patient for nutrition consult 4 times within last 48 hrs. Patient asleep and not responsive. Patient appears at risk for weight loss and food insecurity due to homelessness and drug/alcohol abuse, as evidenced by a decrease in weight from ~75 kg in 08/2024 to ~69 kg in 09/2024. Will offer referral to community connections before discharge when patient is responsive. Intake has been significantly decreased over this admission, possibly as a result of decreased time awake. Will continue to monitor and evaluate meal s atisfaction, intake, and issues when responsive. Nutrition dx: Inadequate oral intake as evidenced by low meal consumption. Unintended wieght loss related to inadequate energy intake and food insecurity. Documented by User: Remington Newton RDN 10/13/25 11:49 Nutrition Note NOTE: Attempted to visit patient for nutrition consult 4 times within last 48 hrs. Patient asleep and not arousable to voice. Patient at risk for weight loss and food insecurity due to homelessness and hx of drug/alcohol abuse, as evidenced by a decrease in weight from ~75 kg in 08/2024 to ~69 kg in 09/2024 (8% loss of body weight x ~1 year). Did not perform NFPE due to patient not able to fully participate or dean permission. Per care mgt, pt tawanna appt on Thursday with PCP and community health team to review resources/make referrals. Intake has been significantly decreased over this admission as patient has been mostly sleeping - this senior grant writer witnessing no attempt to eat breakfast and lunch yesterday at least. Will continue to monitor and evaluate meal satisfaction, intake, and issues when more responsive. Nutrition dx: Inadequate oral intake as evidenced by low meal consumption. Unintended weight loss related to inadequate energy intake and food insecurity. Will continue to monitor nutrition related labs, intake, weight, and will continue to attempt visits to address any nutrition related questions or needs. Time Spent in Nutritional Counseling and Treatment: 5 min
--- NOTE | 2025-10-13 11:46 | PDOC.CMDIS ---
Date of service: 10/13/25 Time of Service: 11:48 LACE Index Scoring Tool Questions: Length of Stay (in days): 4 - 6 Was the patient admitted via the E.D.?: Yes Comorbidities: Liver or Renal Disease E.D. Visits: 1 Answers: Total Score: 13 Risk of Readmission: High Risk Care Management Discharge Plan Reason for Hospitalization: ETOH withdrawal Discharge Plan: Isabel will discharge today with no new home care services. She will f/u with her PCP on 10/20 at 2:40 and also meet with the community care team at that time. Isabel will continue per her plan of care/Isabel was not able to secure O2 for home. She has lost her concentrator and has an outstanding balance with [employer]. Isabel will transport home via private vehicle with a friend. Patient/Family Education Needs: Review of discharge instructions, activity, limitations, and discuss Ask me 3. SDOH Health Related Social Needs: Health related social needs inadequate housing risk of homeless transpo insecurity material hardship house/econ circumstance lonely/isolated Health related social needs details Patient state she needs help with housing, she is living in a camper without heat Health related social needs details: Patient state she needs help with housing, she is living in a camper without heat
[2025-10-13 11:47] LABS: HCT 41.0 % (36.0-46.0); HGB 14.0 g/dL (11.2-15.7); MCH 29.0 pg (27.0-33.0); MCHC 34.1 % (32.0-36.0); MCV 85 fL (80-95); MPV 9.6 fL (8.0-11.0); RBC 4.83 10^6/uL (3.93-5.22); RDW 17.8 % (11.7-14.6); RDW-SD 53.9 fL; WBC 5.62 10^3/uL (4.4-10.8)
[2025-10-13 11:59] LABS: Platelet Count 47 10^3/uL (130-400)
[2025-10-13 12:17] LABS: Magnesium 1.6 mg/dL (1.6-2.6)
[2025-10-13 12:19] LABS: ALT 39 U/L (10-49); AST 67 U/L (<34); Albumin 3.5 g/dL (3.2-5.0); Alkaline Phosphatase 97 U/L (46-116); Anion Gap 10.2 mmol/L (3-11); BUN 7 mg/dL (9-23); Bilirubin, Total 2.9 mg/dL (0.2-1.2); CO2 24.8 mmol/L (20.0-31.0); Calcium 8.9 mg/dL (8.3-10.6); Chloride 105 mmol/L (98-107); Glucose 158 mg/dL (74-106); Potassium 3.6 mmol/L (3.5-5.1); Sodium 140 mmol/L (136-145); Total Protein 7.2 g/dL (5.7-8.2)
[2025-10-13 12:22] LABS: INR 1.3 (0.9-1.1); Prothrombin Time 12.8 sec (9.1-11.1)
--- NOTE | 2025-10-13 12:43 | PT.INNT ---
PT Notes Visit Reasons: Respiratory Failure Patient was approached twice this morning, refused both attempts. First time she stated that she just woke up and needed to make calls. Second time, patient was on the phone and did not want to do anything. PAMELA Gilbert stated that patient has been going to the bathroom on her own without assistive device. YULISSA Dumont and Nurse Torrez was updated about patient's refusal.
[2025-10-13] MEDS: Acetaminophen 325 MG TAB 650 MG PO (13:09)
[2025-10-13] MEDS: LORazepam 1 MG TAB PO/SL (13:13)
[2025-10-13] MEDS: Ondansetron O.D.T. 4 MG TABEF PO (14:18)
--- NOTE | 2025-10-13 14:50 | PT.INTREAT ---
PT Notes Visit Reasons: Respiratory Failure Inpatient Physical Therapy Discharge Summary Dates: 10/13/2025 Dates of Service: 10/11/2025 and 10/13/2025 SUBJECTIVE: Patient was finally agreeable to wlking with PT to assess overall response and safety. Stated that she has been puking. POWER MACHINE OPERATOR hannah and YULISSA Knowlesty aware. Wanted to have a hot shower, PAMELA Gilbert was going to ask if patient is okay to be showered in the shower area. OBJECTIVE: Patient still drowsy. Resting in bed. Yellow stains in white shannon. Pain: None reported BED MOBILITY/TRANSFERS: Supine-sit independent without device Sit-supine independent without device Sit-stand independent without device Stand-sit independent without device Bed-Chair independent without device Chair-bed independent without device GAIT: 250 feet without device, supervision only for cueing for directions. Oxygen saturation increased to 90% on RA (from 87% on RA prior to the walk) and HR went down to 112 bpm (from 120 bpm at rest) after the walk. No SOB. No LOB. BALANCE: Static sitting Normal Dynamic sitting Normal Static standing Good Dynamic standing Good ASSESSMENT: Patient may be walked by [facility] staff in the hallway with no assistive device. PT to sign out as of this time. No equipment needs. DISCHARGE PLAN/RECOMMENDATIONS: Home when medically cleared by hopsitalist. No services needed at this time. TREATMENT CODE/TIME: 00298 x 24 minutes for 2 units (14:50-15:14).
--- NOTE | 2025-10-13 16:02 | W.PM.PROGNOT ---
Date of Service Date of service: 10/13/25 Time of Service: 16:03 Assessment and Plan Assessment and plan (1) Acute hypoxic respiratory failure: Status: Acute Assessment and plan: CT 10/09 with scattered opacities, she has completed antibiotics for CAP H/o Chronic hypoxemia requiring home O2, she is back near her baseline currently PRN bronchodilators Unable to arrange home O2 as of 10/13 due to social/financial barriers (2) Alcohol withdrawal syndrome: Status: Acute Assessment and plan: Was on phenobarbital protocol until 10/11, through withdrawal but still getting occaisional benzodiazepines for anxiety, which are not part of truck terminal manager plan. Out of range for highest seizure risk, but continue precautions. (3) Hypomagnesemia: Status: Acute Assessment and plan: WNL 10/13 (4) End stage liver disease: Status: Chronic Assessment and plan: Patient reportedly is on liver transplant list, but needs at least 3-6 mo sobriety to be active. Some improvement since admission Current MELD 15 so would not be close to transplant (5) Alcohol dependence: Status: Chronic Assessment and plan: Noted. Consider treatment options such as baclofen and gabapentin, which may help anxiety as well. (6) Thrombocytopenia: Status: Chronic Assessment and plan: Less severe than during prior hospitalizations No plan to give platelets above 10k, monitor Hold VTE chemoprophylaxis as plt <50 (7) Opioid use disorder in remission: Status: Acute Assessment and plan: Previously on methadone and suboxone UDS negative for methadone and opioids, but would not show us common street drugs including fentanyl. UPPER MARKER with last suboxone in March Subjective Subjective Patient reports: nausea; denies diarrhea, vomiting, shortness of breath or fever Interval history since last seen: Feels exhausted, achy all over, no focal pain. She hasn't been eating much, some fluids and candy. No bleeding Exam Narrative Exam Narrative: General: This is a pleasant, disheveled, chronically ill-appearing woman in no distress HEENT: Normocephalic, atraumatic. Nonicteric. scabs an phil[place] around nares. CV: RRR, no m/g/r Resp: CTAB, nl effort Abd: soft, NTND MSK: voluntary motion x4 Neuro: awake, alert, no focal deficits Objective Last Vital Signs Temp 37.2 C 10/13/25 15:15 Pulse 112 H 10/13/25 15:15 Resp 16 10/13/25 15:15 BP 146/98 H 10/13/25 15:15 Pulse Ox 90 L 10/13/25 15:15 Laboratory Results - last 24 hr 10/13/25 11:30 WBC 5.62 RBC 4.83 Hgb 14.0 Hct 41.0 MCV 85 MCH 29.0 MCHC 34.1 RDW 17.8 H Plt Count 47 L MPV 9.6 PT 12.8 H INR 1.3 H Sodium 140 Potassium 3.6 Chloride 105 Carbon Dioxide 24.8 Anion Gap 10.2 BUN 7 L Creatinine 0.40 L Est GFR (CKD-EPI 2020) 183.47 Glucose 158 H Calcium 8.9 Magnesium 1.6 Total Bilirubin 2.9 H AST 67 H ALT 39 Alkaline Phosphatase 97 Total Protein 7.2 Albumin 3.5 PAWSS Have you Been Recently Intoxicated or Drunk Within the Last 30 days?: Yes Have you Ever Experienced Previous Episodes of Alcohol Withdrawal?: Yes Have you ever Experienced Withdrawal Seizures?: Yes Have you ever Experienced Delirium Tremens(DT)s?: Yes Have you ever undergone Alcohol Rehabilitation Treatment (i.e, inpt ot outpatient treatment programs)?: Yes Have you ever Experienced Blackouts?: No Have you ever Combined Alcohol with other Downers within the last 90 days?: No Have you ever Combined Alcohol with any other Substance of Abuse during the last 90 days?: No Positive Blood Alcohol level on Presentation? [PCS.BAL]: Yes Evidence of Increased Autonomic Activity (i.e. HR>120, tremor, sweating, agitation, nausea)?: Yes Result: 7 VTE Prohylaxis Risk Level: Moderate/High Risk Contraindications: Medical contrainidcation (thrombocytopenia) Prophylaxis: Mechanical Time Spent with Patient Time Spent with Patient: 35-49 minutes Time was spent: preparing to see the patient(eg.review tests), obtaining and/or reviewing separately otained hiistory, ordering medications,tests, procedures, referring, communicating with other health healthcare network pricing consultant, indepentently interpreting results, counseling the patient and care coordination
--- NOTE | 2025-10-13 17:00 | PDOC.CMPRO ---
Date of service: 10/13/25 Time of Service: 11:48 Care Management Progress Note Progress Note Text Progress Note Text: Isabel was seen ambulating in the halls with PT today. CM talked with her in the stiles, small talk, and followed her into her room to talk some more. Isabel stated that she was feeling really lousy. She is nauseous and has had some bile-like emesis. Isabel would only respond to CM today in very short sentences. She stated that she was tired and when asked if she would answer some questions, she stated, I don't want to. It seems unlikely that Isabel will be able to get new home O2 ordered for her prior to discharge. [employer] did some research today. The number given to RT is to a collection agency. [employer] can not pay for a bill that is in collections. CM spoke with RT, Medicare and Medicaid do not approve of clients using more than 1 DME company, especially if it is due to lack of payment and/or loss of equipment, so another DME company is not really an option. Peyton suggested that CM make her community care team at the PCP office aware of this. If they find it appropriate, they can take it to their [facility]. CM timothy contact Isabel's PCP office on Tuesday 10/16, even if she has been discharged, as it was after office hours when this was learned. Discharge Potential Discharge Needs: PCP F/U Appt (10/20 2:40pm) Anticipated Barriers to Discharge: None Identified Patient/Family Education Needs: Review discharge instructions, discuss Ask Me Three Transportation: Private vehicle Plan: Isabel will discharge home once medically stable, with no new home care services. She will f/u with her PCP on 10/20 at 2:40pm, and will also meet with the Community Care Team at that visit. Isabel will continue per her plan of care, and transport home in a private vehicle with a friend. CM will continue to follow and update the plan as needed. Social Determinants of Health Screening Social Determinants of health last assessed in clinic: 10/13/25 Will the Patient Participate in the Screening?: Yes Do you worry about having a steady place to live?: yes What is your living situation today?: I have housing today, but am worried about losing it Problems where you live: lack of heat and oven or stove not working In the past 12 months, have you had to go without electric, gas, oil or water in your home?: yes 1. Within the past 12 months, we worried whether our food would run out before we got money to buy more.: Don't know/refused 2. Within the past 12 months, the food we bought just didn't last and we didn't have money to get more.: Don't know/refused Has lack of transportation kept you from medical appointments or from doing things needed for daily living?: yes Has anyone in your life made you feel unsafe or unsupported?: no How hard is it for you to pay for the very basics like food, housing, medical care, and heating? Would you say it is:: Very hard Do you want help finding or keeping work or a job?: I do not need or want help If for any reason you need help with day-to-day activities such as bathing, preparing meals, shopping, managing finances, etc., do you get the help you need?: I don?t need any help How often do you feel lonely or isolated from those around you?: Rarely Do you speak a language other than Albanian at home?: No Does the patient want assistance with any of the above?: Yes Health Related Social Needs Health related social needs: inadequate housing (Z59.1), housing instability, housed, with risk of homelessness (Z59.811), transportation insecurity (Z59.82), material hardship(utilities) (Z59.12), problems related to housing/economic circumstances (Z59.89) and feeling lonely/isolated (Z60.8) Health related social needs details: Patient state she needs help with housing, she is living in a camper without heat
[2025-10-13] MEDS: Normal Saline Flush 10 ML SYR IVP (20:36)
[2025-10-13] MEDS: Mirtazapine 15 MG TAB 30 MG PO (20:36)
[2025-10-14 02:49] VITALS: BP 113/66; PULSE 110; RESP 16; TEMP 37.1; O2SAT 88
[2025-10-14 07:28] VITALS: BP 109/65; PULSE 106; RESP 16; TEMP 36.5; O2SAT 88
[2025-10-14] MEDS: Lactulose 20 GM/30 ML CUP 30 GM PO (08:11)
[2025-10-14] MEDS: Gabapentin 100 MG CAP PO (08:11)
--- NOTE | 2025-10-14 08:14 | DSE_ITS ---
Date of service: 10/14/25 Time of Service: 08:16 DS: Diagnosis Discharge Diagnosis (1) Acute hypoxic respiratory failure: Status: Acute (2) Alcohol withdrawal syndrome: Status: Acute (3) Hypomagnesemia: Status: Acute (4) End stage liver disease: Status: Chronic (5) Alcohol dependence: Status: Chronic (6) Thrombocytopenia: Status: Chronic (7) Opioid use disorder in remission: Status: Acute Discharge Plan Disposition Patient Disposition: Home Anticipated Discharge Date/Time: 10/14/25 08:38 Condition: Improving Discharge Details Reason For Visit: Respiratory Failure Admit Date/Time: 10/09/25 14:42 Admit Provider: Adilson Hernandez Attending Provider: Adilson Hernandez Primary Care Provider: Ariel Parker Hospital Course Hospital Course: 35 year old woman with decompensated cirrhosis and active alcohol use disorder who presented October 09 with shortness of breath and chest pain after leaving [facility]. She had previously been prescribed home oxygen but was not using it for several weeks at least. She required 4L O2 to maintain O2 sat of 89%. CT C/A/P revealed a subacute rib fracture, scattered infiltrate vs atelectasis, and no acute abdominal or pelvic pathology. She was treated intially with cefepime, vancomycin, and azithromycin, then transitioned to ceftriaxone (through 10/12) and azithromycin (through 10/11). She did not have fever or cough/sputum. Her oxygen improved and was not requiring oxygen for the 24hours prior to discharge with her oxygen levels 88--91% on room air. Care management did reach out to the home oxygen provider, but they would not service the patient due to an outstanding bill. The community care team at her primary care office is aware of this situation. Smoking cessation, including crack, was emphasized. \ Her liver function improved slightly with supportive care. Her MELD3 based on 10/13 labs was 15. She should follow with hepatology. Lactulose was continued and rifaxmin was also prescribed because she indicated she was stable on this previously. Her last alcoholic drink was 10/08 prior to presentation. BAL on presentation here was <3. She was treated with the phenobarbital protocol through 10/11. She had been on gabapentin, but we decided to change to baclofen, which is one of the therapies preferred for patients with decompensated cirrhosis by the AGA guidelines. She was given 15 days worth of baclofen and should have close PCP follow up within 1-2 weeks. We also discussed supportive living options for alcohol use disorder. Recommendations for Follow Up Recommended tests to be ordered by follow up provider: CBC, CMP, Mg, INR in 1 week Home Meds and New Rx's Prescriptions: New ondansetron 4 mg Tablet,Disintegrating 4 mg PO Q8H PRN PRNQty: 12 0RF lactulose 10 gram/15 mL Solution 30 g PO TID Qty: 946 2RF baclofen 5 mg tablet 5 mg PO TID Qty: 45 0RF Xifaxan 550 mg tablet 550 mg PO BID Qty: 60 0RF Continued mirtazapine [Remeron] 15 mg Tablet 30 mg PO HS lactulose 10 gram/15 mL solution 30 g PO TID magnesium chloride [Mag 64] 64 mg Tablet,Delayed Release (Dr/Ec) 128 mg PO BID Qty: 60 0RF folic acid 1 mg Tablet 1 mg PO QAM Qty: 30 0RF albuterol sulfate [Ventolin HFA] 90 mcg/actuation Hfa Aerosol Inhaler 2 puff inhalation Q4H PRN PRNQty: 8.5 0RF Discontinued gabapentin 100 mg Capsule 100 mg PO TID Qty: 30 0RF Discharge Instructions Instructions: Cirrhosis Additional Instructions: Continue the lactulose and xifaxan to treat hepatic encephalopathy We decided to stop the gabapentin and try baclofen instead to help with alcohol cravings. We sent 15 days worth. You need to follow up with your PCP to continue and possibly increase this if if is helping. Avoid smoking anything and other lung irritants Stand Alone Forms: Portal Information Referrals: Ariel Parker MD [Primary Care Provider, Medicine] - 10/20/25 2:40 pm Referral Note: Will also be meeting with the Community Care Team. Activity:: Activity as Tolerated Equipment/Supplies:: No Equipment Needed Diet:: increase protein intake Discharge Orders Discharge Orders: Discharge Order (Routine); Ordered 10/14/25 Ordered By: Alex Burris DS: Summary Time Spent with Patient providing and/or coordinating discharge services: Greater than 30 minutes Status at Discharge Functional status at discharge: independent ambulation Overall status at discharge: patient is back to baseline Mental Status: mental status grossly normal Speech and Movement: speech and movement normal Mood: congruent mood Affect: normal affect Quality:SDOH Health Related Social Needs: Health related social needs inadequate housing risk of homeless transpo insecurity material hardship house/econ circumstance lonely/isolated Health related social needs details Patient state she needs help with housing, she is living in a camper without heat Health related social needs details: Patient state she needs help with housing, she is living in a camper without heat Exam Narrative Exam Narrative: General: Alert and oriented, pleasant, no distress HEENT: Nonicteric. MMM CV: RRR, no m/g/r Resp: CTAB, nl effort Abd: soft, ND, mild RUQ tenderness. no fluid wave. Ext: no edema, no cyanosis Neuro: awake, alert, no focal deficits, no tremor/asterixis Psych Mental Status: mental status grossly normal Speech and Movement: speech and movement normal Mood: congruent mood Affect: normal affect DS: Data Vitals/I&O Vitals and I&O: Vital Signs Temperature 36.5 C 10/14/25 07:28 Temperature Source Temporal Artery Scan 10/14/25 07:28 Pulse 106 H 10/14/25 07:28 Pulse 104 H 10/11/25 10:00 Respiratory Rate 16 10/14/25 07:28 Respiratory Effort Incrsd Work of Breathing 10/09/25 17:10 Respiratory Depth Normal 10/09/25 17:10 Respiratory Pattern Normal 10/09/25 17:10 Blood Pressure 109/65 10/14/25 07:28 Blood Pressure Mean 79 10/14/25 07:28 Blood Pressure Position Supine 10/09/25 17:10 Pulse Oximetry 88 L 10/14/25 07:28 Oxygen Delivery Method Room Air 10/14/25 07:28 Oxygen Flow Rate 0 10/14/25 07:28 Pain Level 5 10/14/25 02:49 Comment O2 sat on target per respiratory 10/13/25 11:21 Comment 4L of O2 via NC 10/10/25 22:00 Intake & Output 10/13/25 10/13/25 10/14/25 11:59 23:59 11:59 Intake Total 240 / 240 Balance 240 / 240 Intake: Oral 240 / 240 Other: Urine Color Yellow Yellow Yellow Urine Appearance Clear Clear Clear Comment reported by pt reported by pt Data Completed and Pending Pending Labs at Discharge: 12/15/25 12/15/25 12/15/25 09:45 09:45 10:10 WBC 4.44 RBC 4.87 Hgb 13.9 Hct 41.0 MCV 84 MCH 28.5 MCHC 33.9 RDW 17.2 H Plt Count 42 L MPV 10.9 Immature Gran % 0.2 Neutrophils % 55.0 Lymphocytes % 33.1 Monocytes % 7.2 Eosinophils % 4.3 Basophils % 0.2 Nucleated RBC % 0.0 Absolute Neutrophils 2.44 Absolute Lymphocytes 1.47 Absolute Monocytes 0.32 Absolute Eosinophils 0.19 Absolute Basophils 0.01 RBC Morphology Normal Anisocytosis Microcytosis PT INR APTT D-Dimer 1757 H VBG pH 7.44 H VBG pCO2 42 VBG pO2 76 VBG HCO3 29 H VBG Total CO2 25 VBG O2 Saturation 96 VBG Base Excess 5 H VBG Lactate Cancelled 1.8 Sodium 141 Potassium 3.4 L Chloride 104 Carbon Dioxide 27.5 Anion Gap 9.5 BUN 6 L Creatinine 0.48 L Est GFR (CKD-EPI 2020) 148.67 Glucose 118 H Calcium 8.3 Magnesium 1.3 L Total Bilirubin 3.2 H AST 87 H ALT 37 Alkaline Phosphatase 103 Ammonia Troponin I < 3 Total Protein 7.2 Albumin 3.5 Lipase 29 Serum HCG, Qual Negative Urine Opiates Screen Urine Methadone Screen Ur Barbiturates Screen Ur Tricyclics Screen Ur Amphetamines Screen U Benzodiazepines Scrn Urine Cocaine Screen U Cannabinoids Screen Ethyl Alcohol < 3.0 COVID-19 Source SARS-CoV-2 (PCR) Influenza Type A (PCR) Influenza Type B (PCR) RSV (PCR) Add-On Test Request DONE ABO/Rh B Positive Antibody Screen NEGATIVE 10/09/25 10/09/25 10/09/25 10:35 12:10 13:07 WBC RBC Hgb Hct MCV MCH MCHC RDW Plt Count MPV Immature Gran % Neutrophils % Lymphocytes % Monocytes % Eosinophils % Basophils % Nucleated RBC % Absolute Neutrophils Absolute Lymphocytes Absolute Monocytes Absolute Eosinophils Absolute Basophils RBC Morphology Anisocytosis Microcytosis PT 13.8 H INR 1.4 H APTT 36.1 H D-Dimer VBG pH VBG pCO2 VBG pO2 VBG HCO3 VBG Total CO2 VBG O2 Saturation VBG Base Excess VBG Lactate Sodium Potassium Chloride Carbon Dioxide Anion Gap BUN Creatinine Est GFR (CKD-EPI 2020) Glucose Calcium Magnesium Total Bilirubin AST ALT Alkaline Phosphatase Ammonia Troponin I < 3 Total Protein Albumin Lipase Serum HCG, Qual Urine Opiates Screen Urine Methadone Screen Ur Barbiturates Screen Ur Tricyclics Screen Ur Amphetamines Screen U Benzodiazepines Scrn Urine Cocaine Screen U Cannabinoids Screen Ethyl Alcohol COVID-19 Source Nasopharynx SARS-CoV-2 (PCR) Negative Influenza Type A (PCR) Negative Influenza Type B (PCR) Negative RSV (PCR) Negative Add-On Test Request ABO/Rh Antibody Screen 10/09/25 10/10/25 10/11/25 16:15 05:47 05:30 WBC 3.81 L 4.12 L RBC 4.23 4.44 Hgb 12.5 12.6 Hct 36.4 38.1 MCV 86 86 MCH 29.6 28.4 MCHC 34.3 33.1 RDW 16.9 H 17.1 H Plt Count 32 L 34 L MPV 9.5 Immature Gran % 0.3 0.2 Neutrophils % 58.2 60.0 Lymphocytes % 32.3 30.1 Monocytes % 5.0 5.1 Eosinophils % 3.9 4.4 Basophils % 0.3 0.2 Nucleated RBC % 0.0 0.0 Absolute Neutrophils 2.22 2.47 Absolute Lymphocytes 1.23 1.24 Absolute Monocytes 0.19 0.21 Absolute Eosinophils 0.15 0.18 Absolute Basophils 0.01 0.01 RBC Morphology Normal Anisocytosis Microcytosis PT INR APTT D-Dimer VBG pH VBG pCO2 VBG pO2 VBG HCO3 VBG Total CO2 VBG O2 Saturation VBG Base Excess VBG Lactate Sodium 142 142 Potassium 3.2 L 3.4 L Chloride 105 105 Carbon Dioxide 27.6 27.2 Anion Gap 9.4 9.8 BUN 5 L < 5 L Creatinine 0.43 L 0.36 L Est GFR (CKD-EPI 2020) 168.79 207.20 Glucose 147 H 129 H Calcium 7.8 L 8.0 L Magnesium 1.3 L 1.4 L Total Bilirubin 3.5 H 3.5 H AST 74 H 102 H ALT 32 41 Alkaline Phosphatase 89 89 Ammonia 82 H Troponin I Total Protein 5.8 6.3 Albumin 2.8 L 2.9 L Lipase 31 Serum HCG, Qual Urine Opiates Screen Negative Urine Methadone Screen Negative Ur Barbiturates Screen Positive A Ur Tricyclics Screen Negative Ur Amphetamines Screen Negative U Benzodiazepines Scrn Negative Urine Cocaine Screen Positive A U Cannabinoids Screen Negative Ethyl Alcohol COVID-19 Source SARS-CoV-2 (PCR) Influenza Type A (PCR) Influenza Type B (PCR) RSV (PCR) Add-On Test Request ABO/Rh Antibody Screen 10/12/25 10/13/25 06:30 11:30 WBC 4.36 L 5.62 RBC 4.47 4.83 Hgb 12.9 14.0 Hct 38.2 41.0 MCV 86 85 MCH 28.9 29.0 MCHC 33.8 34.1 RDW 17.1 H 17.8 H Plt Count 37 L 47 L MPV 9.7 9.6 Immature Gran % 0.7 Neutrophils % 71.6 Lymphocytes % 19.7 Monocytes % 5.7 Eosinophils % 2.1 Basophils % 0.2 Nucleated RBC % 0.0 Absolute Neutrophils 3.12 Absolute Lymphocytes 0.86 L Absolute Monocytes 0.25 Absolute Eosinophils 0.09 Absolute Basophils 0.01 RBC Morphology See Below Anisocytosis 1+ Microcytosis 1+ PT 12.8 H INR 1.3 H APTT D-Dimer VBG pH VBG pCO2 VBG pO2 VBG HCO3 VBG Total CO2 VBG O2 Saturation VBG Base Excess VBG Lactate Sodium 140 Potassium 3.6 Chloride 105 Carbon Dioxide 24.8 Anion Gap 10.2 BUN 7 L Creatinine 0.40 L Est GFR (CKD-EPI 2020) 183.47 Glucose 158 H Calcium 8.9 Magnesium 1.6 Total Bilirubin 2.9 H AST 67 H ALT 39 Alkaline Phosphatase 97 Ammonia Troponin I Total Protein 7.2 Albumin 3.5 Lipase Serum HCG, Qual Urine Opiates Screen Urine Methadone Screen Ur Barbiturates Screen Ur Tricyclics Screen Ur Amphetamines Screen U Benzodiazepines Scrn Urine Cocaine Screen U Cannabinoids Screen Ethyl Alcohol COVID-19 Source SARS-CoV-2 (PCR) Influenza Type A (PCR) Influenza Type B (PCR) RSV (PCR) Add-On Test Request ABO/Rh Antibody Screen Preliminary micro results at discharge 10/09/25 10:25 Blood Blood Culture - Preliminary NO GROWTH 96 HOURS 10/09/25 10:10 Blood Blood Culture - Preliminary NO GROWTH 96 HOURS PFSH All Active Problems (Updated 10/14/25 @ 08:35 by Alex Burris) Cocaine abuse (Acute) Opioid use disorder in remission (Acute) Alcohol dependence (Chronic) End stage liver disease (Chronic) History of seizure due to alcohol withdrawal (Chronic) Alcohol withdrawal syndrome (Acute) Community acquired pneumonia (Acute) Thrombocytopenia (Chronic) Acute hypoxic respiratory failure (Acute) Hyperbilirubinemia (Acute) Hypomagnesemia (Acute) Homelessness (Acute) Substance use disorder (Acute) Alcohol use disorder (Acute) Advance care planning (Acute) Alcoholic hepatitis (Acute) Coagulopathy (Chronic) Pancytopenia (Chronic) Abnormal gall bladder diagnostic imaging (Acute) Hypomagnesemia (Acute) Alcoholic cirrhosis (Chronic) Medical History (Updated 10/14/25 @ 08:35 by Alex Burris) Palliative care encounter Social History Smoking/Tobacco Use Status: Current every day Tobacco Type: cigarettes Smoking risk assessment performed?: Yes Alcohol Intake: current Alcohol Intake frequency: 3 or more drinks per day Alcohol type: hard liquor Drug use: Rarely Substance use type: does not use and former substance user Details: drinks a fifth of vodka daily when drinking Housing: homeless Do you feel safe at home: Yes Do you feel safe in your relationship?: Yes Time Spent with Patient Time Spent with Patient: <45 minutes Time was spent: preparing to see the patient(eg.review tests), obtaining and/or reviewing separately otained hiistory, ordering medications,tests, procedures, referring, communicating with other health critical care physician assistant, indepentently interpreting results, counseling the patient and care coordination
--- NOTE | 2025-10-14 08:31 | W.NUTRFU ---
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 Reviewed and gave her handout on higher protein food list and advised to aim for 1.5g/kg or 103g protein daily. reviewed some tips with protein powders and high protein plant sources as well Gave her my card to email/call or make appt with any questions or desire to get more into depth of nutrition education Time Spent in Nutritional Counseling and Treatment: 5 min
--- NOTE | 2025-10-14 10:14 | PDOC.CMDIS ---
Date of service: 10/14/25 Time of Service: 10:14 LACE Index Scoring Tool Questions: Length of Stay (in days): 4 - 6 Was the patient admitted via the E.D.?: Yes Comorbidities: Liver or Renal Disease E.D. Visits: 0 Answers: Total Score: 12 Risk of Readmission: High Risk Care Management Discharge Plan Reason for Hospitalization: respiratory failure Discharge Plan: Randi was discharged back to the community this morning, as she was medically stable. She was transported via private vehicle by a friend. She has a follow up appointment with her PCP on Thursday10/16/25, where she will also meet with the community care team to discuss options for local support for both medical and social needs. Patient/Family Education Needs: Review discharge instructions and limitations, discussion of self care needs including ask me three. SDOH Health Related Social Needs: Health related social needs inadequate housing risk of homeless transpo insecurity material hardship house/econ circumstance lonely/isolated Health related social needs details Patient state she needs help with housing, she is living in a camper without heat Health related social needs details: Patient state she needs help with housing, she is living in a camper without heat
== END 2025-10-14 09:25 | disposition home or self-care (01) | DRG 193 ==
LOC: ER 15:22 → MS 15:54 → ICU 17:21 → MS 10-11 11:26
PROVIDERS: Admitting Provider Family Medicine; Emergency Provider Emergency Medicine; PCP Family Medicine; Responsible Provider Family Medicine; Visit Provider Family Medicine
DX: J18.9 Pneumonia, unspecified organism (principal); J96.21 Acute and chronic respiratory failure with hypoxia; F10.239 Alcohol dependence with withdrawal, unspecified; D61.818 Other pancytopenia; K76.6 Portal hypertension; Z59.12 Inadequate housing utilities; Z59.11 Inadequate housing environmental temperature; E83.42 Hypomagnesemia; D69.6 Thrombocytopenia, unspecified; K70.30 Alcoholic cirrhosis of liver without ascites; K70.10 Alcoholic hepatitis without ascites; E87.6 Hypokalemia; R74.8 Abnormal levels of other serum enzymes; R79.1 Abnormal coagulation profile; Z86.711 Personal history of pulmonary embolism; R07.89 Other chest pain; Z79.899 Other long term (current) drug therapy; F17.210 Nicotine dependence, cigarettes, uncomplicated; Z99.81 Dependence on supplemental oxygen; F14.10 Cocaine abuse, uncomplicated; S22.32XD Fracture of one rib, left side, subsequent encounter for fracture with routine healing; X58.XXXD Exposure to other specified factors, subsequent encounter; K72.10 Chronic hepatic failure without coma; F11.21 Opioid dependence, in remission; Z59.82 Transportation insecurity; Z59.89 Other problems related to housing and economic circumstances; Z60.8 Other problems related to social environment
CPT/HCPCS: 00123; 36415; 71275; 74177; 80053; 80307; 82805; 83690; 85027; 86850; 86900; 86901; 87040; 87637; 93005; 93308; 96365; 96366; 96367; 96375; 97162; 97530; 99285; 71045; 80320; 82140; 83605; 83735; 84484; 84703; 85025; 85379; 85610; 85730; 93010; 94760; 99222; 99231; 99232; 99238; J0692; J0696; J2405; J2560; J3373; J3475; J3490